=== PATIENT | female | born 1945 | race Caucasian/White ===

== ENCOUNTER → 2023-11-17 12:59 | Outpatient (REF) | payer MEDICARE, OTHER, SELFPAY | LOC: RAD 12:59 | PROVIDERS: ATTENDING PHYSICIAN Physician Assistant | DX: I77.9 Disorder of arteries and arterioles, unspecified (principal); I70.221 Atherosclerosis of native arteries of extremities with rest pain, right leg | CPT/HCPCS: 93922; 93925 ==

== ENCOUNTER 2024-04-04 17:32 | Inpatient (IN) | payer MEDICARE, OTHER, SELFPAY ==
[2024-04-04] VITALS (33 sets, daily range): BP systolic 79–154; BP diastolic 34–122
[2024-04-04 15:16] LABS: Glucose - Point of Care 160 mg/dl (70-99)
--- NOTE | 2024-04-04 15:23 | ED.GENMED ---
History of Present Illness
<Benoit Houser DO, Resident - Last Filed: 04/04/24 18:43>
General
Chief Complaint: Change in Mental Status
Source: ambulance crew
Time Seen by Provider: 04/04/24 15:17
History of Present Illness
History of Present Illness:
Pt is a 79 YO F presenting to the ED with AMS for 2 days per longterm report. She has been more somnolent and confused than baseline, has not eaten anything in 2 days and is febrile. Per EMS report HR has been scattered between 80-130s and BP
was 80s/40s. She has a hx of afib and is currently in afib on registered nurse cardiac.
Past History
<Benoit Houser DO, Resident - Last Filed: 04/04/24 18:43>
Past History
ED Past Medical History: Arrthythmia (Paroxysmal atrial fibrillation; V-fib with torsades), CAD, CHF (Cardiomyopathy), CVA, GERD, HTN, Hypercholesterolemia, IDDM, Hypothyroidism, Psychiatric and Other (Chronic foot wound, osteomyelitis)
ED Past Surgical History: Cardiac (AICD 2016)
Social History
Personal:
Living: longterm
Family History
Family History: Other (Noncontributory)
Review of Systems
<Benoit Houser DO, Resident - Last Filed: 04/04/24 18:43>
Review of Systems
Allergies reviewed?: Yes
Unable to obtain full review of systems at this time due to: dementia
Other source history: longterm and ambulance crew
Constitutional: Reports other (Patient has baseline dementia and is significantly more altered than baseline. Somnolent and unable to respond. )
Respiratory: Reports cough
Phy Exam
<Benoit Houser DO, Resident - Last Filed: 04/04/24 18:43>
Physical Exam
Physical Exam:
.
General Physical Exam
General Skin: feels hot
General Habitus: cachetic, elderly, failure to thrive and frail
General Mental: other (AMS, somnolent)
General Hydration: dry mucous membranes
General Chronic Disability: diapers and non ambulatory
Cardiovascular Exam
Cardiovascular Exam: no edema, no gallop, no JVD, no murmur, normal peripheral pulses, pacemaker and tachycardia
Pulmonary Exam
Pulmonary Exam: no respiratory distress, chest non tender and no stridor
Oxygen Status: room air
Cough: coarse cough
Breath Sounds: Crackles: generalized
Neurological Exam
Neurological Exam: non verbal and other (altered mental status, somnolent, unable to respond to questions )
Musculoskeletal Exam
Musculoskeletal Exam: no edema
Course
<Benoit Houser DO, Resident - Last Filed: 04/04/24 18:43>
Orders/Labs/Results
Orders:
Orders
04/04/24 Dinner
NPO
Allow oral meds: No
Allow clear liquids: No
NPO
Allow oral meds: No
Allow clear liquids: No
04/04/24 15:12
Electrocardiogram (*1) Urgent
Reason for Study: Other
Other Reason for Exam: Possible Sepsis
Cardiac Monitoring- Treatment ONCE
EKG- Treatment ONCE
IV Insert/Care/Rem.- Treatment PRN
Straight cath- Treatment ONCE
Portable Chest Xray [CR Chest Portable - 1 View] Urgent
Comment:
Reason For Exam: cough
Reason Study Needs to be Portable: Unable to Transport
If Reason is Other, explain: unstable
O2 Therapy [RESP] Urgent
Titrate/Wean O2 to maintain O2 sat greater than (%): 93
Special Instructions: TO MAINTAIN CONTINUOUS O2 SATS > OR = 93%
Pulse Ox/cont/shift [RESP] Urgent
Quantity: 1
Special Instructions: CONTINUOUS
04/04/24 15:17
Cardiac Monitoring- Treatment ONCE
IV Insert/Care/Rem.- Treatment PRN
Straight cath- Treatment ONCE
0.9% Sodium Chloride 1000 ml [Nss] 1,500 ml IV BOLUS
Acetaminophen [Tylenol/Feverall] 650 mg RECTAL NOW STA
04/04/24 15:20
Cefepime HCl [Maxipime] 2,000 mg IV NOW STA
04/04/24 15:27
Complete Blood Count/With Diff Urgent
Comprehensive Metabolic Panel Urgent
Lactate Level [Lactic Acid] Urgent
Urinalysis Reflex To Culture Urgent
Date Specimen was Collected: 04/04/24
Time Specimen was Collected: 15:12
Urine Microscopic Reflex Cult Urgent
Blood Culture Urgent
KEVIN Source: Blood/Venous
Specimen Description:
Urine Culture Urgent
KEVIN Source: U
Specimen Description:
Date Specimen was Collected: 04/04/24
Time Specimen was Collected: 15:12
04/04/24 15:36
Sterile Water [Sterile Water For Injection] 20 ml .ROUTE .STK-MED
04/04/24 15:37
Speech Screening from Lilibeth Routine
04/04/24 16:49
Admit/Transfer Patient As Directed
Co-Sign Provider:
Level of Care: Inpatient admission
Assign to:: ICU
Physician / Group: tesha
Diagnosis: sepsis uti
Reason for Hospitalization: sepsis uti
Expected length of stay greater than two midnights?: Yes
ELOS- Estimated Length of Stay in days: 2
I certify the patient meets the requirements for IP care: Yes
Code Status As Directed
Resuscitation Status: Do not resuscitate
Reached after discussion with pt or family/Healthcare POA: Yes
DNR Bracelet Application ONCE
04/04/24 16:59
Abdomen/Pelvis wo Contrast CT [CT Abd/pelvis Wo Iv Cont] Urgent
Comment:
Reason For Exam: obstructive renal stone
04/04/24 17:00
NORepinephrine 4 MG/250 ML [Levophed] 4 mg in 250 ml IV PER PROTOCOL
Initial dose in mcg/min, then titrate:: 2
Titrate to keep:: SBP > 90 mmHg
Titrate by mcg/min:: 1-2 mcg/min
Frequency of titrations (minutes):: 5
Maximum dose in ICU in mcg/min:: 30
Maximum dose in IMU in mcg/min:: 8
Maximum dose in IVU in mcg/min:: 4
Begin to taper infusion when:: Remained at goal for 4hrs
Taper by mcg/min:: 1-2 mcg/min
Frequency of taper (minutes) if patient maintains goal:: 30
Taper to off?: Yes
If infusion off & no longer maintaining goal:: Contact Provider
04/04/24 18:42
Lactate Level [Lactic Acid] Q6H
0.9% Sodium Chloride 1000 ml [Nss] 1,000 ml IV 80 mls/hr
Artificial Tears (Pf) [Refresh Eye Drops (Pf)] 1 drops OPHTH QIDPRN PRN
Cefepime HCl [Maxipime] 1,000 mg IV Q12H
Dextrose 50%-Water [Dextrose 50% Syringe] 12.5 grams IV [id number] PRN
Glucagon [GlucaGen] 1 mg IM PRN PRN
04/04/24 18:42
Activity As Directed
Activity Level: As Tolerated
Bedside Glucose Monitoring As Directed
Frequency: AC&HS
Additional Instructions:: Change to q6h if pt on TPN, tube feeding or not eating
Vital Signs As Directed
Frequency: Per unit guidelines
DX Deep Vein Thrombosis Video Routine
04/04/24 20:00
Heparin 5,000 units SC Q12
04/05/24 00:42
Lactate Level [Lactic Acid] Q6H
04/05/24 06:00
Complete Blood Count/With Diff IN AM
Comprehensive Metabolic Panel IN AM
Glycohemoglobin (HgbA1c) IN AM
04/05/24 07:30
Insulin Aspart Corrective Low [Novolog Flexpen-Low Resistance] See Protocol SC AC
Abnormal Lab Results
04/04/24 04/04/24
15:14 15:27
WBC 21.7 H 10^3/uL
(4.8-10.8)
MCV 78.5 L fL
(81.0-99.0)
MCH 23.6 L pg
(27.0-31.0)
MCHC 30.1 L g/dL
(33.0-37.0)
RDW 23.2 H %
(11.5-14.5)
Plt Count 412 H 10^3/uL
(130-400)
Abs Immat Gran (auto) 0.2 H 10^3/uL
(0-0.05)
Absolute Neuts (auto) 17.5 H 10^3/uL
(1.4-6.5)
Absolute Monos (auto) 1.5 H 10^3/uL
(0.1-0.6)
Immature Gran % 0.9 H %
(0-0.5)
Neutrophils % 80.6 H %
(42.2-75.2)
Lymphocytes % 11.5 L %
(20.5-51.1)
Sodium 157 H mmol/L
(135-145)
Chloride 120 H mmol/L
(98-107)
BUN 66 H mg/dl
(7-17)
Creatinine 1.3 H mg/dL
(0.6-1.0)
Glucose 147 H mg/dl
(70-99)
Lactic Acid 5.1 H* mmol/L
(0.7-2.0)
Calcium 10.5 H mg/dl
(8.4-10.2)
Albumin 3.3 L g/dl
(3.5-5.0)
Urine Ketones 1+ A
(Negative)
Ur Occult Blood Reflex 1+ A
(Negative)
Urine Bilirubin 1+ A
(Negative)
Leukocyte Esterase Rfl 1+ A
(Negative)
Urine RBC 11-15 A /HPF
(0-2)
Urine WBC (Reflex) 11-15 A /HPF
(0-5)
Urine Bacteria (Reflex) Many A
(Negative)
POC Glucose 160 H mg/dl
(70-99)
04/04/24 15:27
04/04/24 15:27
Vital Signs
Initial and Last Documented VS:
Initial Vital Signs
BP
98/69
04/04/24 15:32
Last Documented Vital Signs
Temp Pulse Resp BP Pulse Ox
102.4 F H 136 29 94/63 92
04/04/24 15:33 04/04/24 18:10 04/04/24 18:10 04/04/24 18:00 04/04/24 18:10
<Edwin Felton, DO - Last Filed: 04/04/24 16:22>
Orders/Labs/Results
Orders:
Orders
04/04/24 Dinner
NPO
Allow oral meds: No
Allow clear liquids: No
NPO
Allow oral meds: No
Allow clear liquids: No
04/04/24 15:12
Electrocardiogram (*1) Urgent
Reason for Study: Other
Other Reason for Exam: Possible Sepsis
Cardiac Monitoring- Treatment ONCE
EKG- Treatment ONCE
IV Insert/Care/Rem.- Treatment PRN
Straight cath- Treatment ONCE
Portable Chest Xray [CR Chest Portable - 1 View] Urgent
Comment:
Reason For Exam: cough
Reason Study Needs to be Portable: Unable to Transport
If Reason is Other, explain: unstable
O2 Therapy [RESP] Urgent
Titrate/Wean O2 to maintain O2 sat greater than (%): 93
Special Instructions: TO MAINTAIN CONTINUOUS O2 SATS > OR = 93%
Pulse Ox/cont/shift [RESP] Urgent
Quantity: 1
Special Instructions: CONTINUOUS
04/04/24 15:17
Cardiac Monitoring- Treatment ONCE
IV Insert/Care/Rem.- Treatment PRN
Straight cath- Treatment ONCE
0.9% Sodium Chloride 1000 ml [Nss] 1,500 ml IV BOLUS
Acetaminophen [Tylenol/Feverall] 650 mg RECTAL NOW STA
04/04/24 15:20
Cefepime HCl [Maxipime] 2,000 mg IV NOW STA
04/04/24 15:27
Complete Blood Count/With Diff Urgent
Comprehensive Metabolic Panel Urgent
Lactate Level [Lactic Acid] Urgent
Urinalysis Reflex To Culture Urgent
Date Specimen was Collected: 04/04/24
Time Specimen was Collected: 15:12
Urine Microscopic Reflex Cult Urgent
Blood Culture Urgent
KEVIN Source: Blood/Venous
Specimen Description:
Urine Culture Urgent
KEVIN Source: U
Specimen Description:
Date Specimen was Collected: 04/04/24
Time Specimen was Collected: 15:12
04/04/24 15:36
Sterile Water [Sterile Water For Injection] 20 ml .ROUTE .STK-MED
04/04/24 15:37
Speech Screening from Lilibeth Routine
04/04/24 16:49
Admit/Transfer Patient As Directed
Co-Sign Provider:
Level of Care: Inpatient admission
Assign to:: ICU
Physician / Group: tesha
Diagnosis: sepsis uti
Reason for Hospitalization: sepsis uti
Expected length of stay greater than two midnights?: Yes
ELOS- Estimated Length of Stay in days: 2
I certify the patient meets the requirements for IP care: Yes
Code Status As Directed
Resuscitation Status: Do not resuscitate
Reached after discussion with pt or family/Healthcare POA: Yes
DNR Bracelet Application ONCE
04/04/24 16:59
Abdomen/Pelvis wo Contrast CT [CT Abd/pelvis Wo Iv Cont] Urgent
Comment:
Reason For Exam: obstructive renal stone
04/04/24 17:00
NORepinephrine 4 MG/250 ML [Levophed] 4 mg in 250 ml IV PER PROTOCOL
Initial dose in mcg/min, then titrate:: 2
Titrate to keep:: SBP > 90 mmHg
Titrate by mcg/min:: 1-2 mcg/min
Frequency of titrations (minutes):: 5
Maximum dose in ICU in mcg/min:: 30
Maximum dose in IMU in mcg/min:: 8
Maximum dose in IVU in mcg/min:: 4
Begin to taper infusion when:: Remained at goal for 4hrs
Taper by mcg/min:: 1-2 mcg/min
Frequency of taper (minutes) if patient maintains goal:: 30
Taper to off?: Yes
If infusion off & no longer maintaining goal:: Contact Provider
04/04/24 18:42
Lactate Level [Lactic Acid] Q6H
0.9% Sodium Chloride 1000 ml [Nss] 1,000 ml IV 80 mls/hr
Artificial Tears (Pf) [Refresh Eye Drops (Pf)] 1 drops OPHTH QIDPRN PRN
Cefepime HCl [Maxipime] 1,000 mg IV Q12H
Dextrose 50%-Water [Dextrose 50% Syringe] 12.5 grams IV [id number] PRN
Glucagon [GlucaGen] 1 mg IM PRN PRN
04/04/24 18:42
Activity As Directed
Activity Level: As Tolerated
Bedside Glucose Monitoring As Directed
Frequency: AC&HS
Additional Instructions:: Change to q6h if pt on TPN, tube feeding or not eating
Vital Signs As Directed
Frequency: Per unit guidelines
DX Deep Vein Thrombosis Video Routine
04/04/24 20:00
Heparin 5,000 units SC Q12
04/05/24 00:42
Lactate Level [Lactic Acid] Q6H
04/05/24 06:00
Complete Blood Count/With Diff IN AM
Comprehensive Metabolic Panel IN AM
Glycohemoglobin (HgbA1c) IN AM
04/05/24 07:30
Insulin Aspart Corrective Low [Novolog Flexpen-Low Resistance] See Protocol SC AC
Abnormal Lab Results
04/04/24 04/04/24
15:14 15:27
WBC 21.7 H 10^3/uL
(4.8-10.8)
MCV 78.5 L fL
(81.0-99.0)
MCH 23.6 L pg
(27.0-31.0)
MCHC 30.1 L g/dL
(33.0-37.0)
RDW 23.2 H %
(11.5-14.5)
Plt Count 412 H 10^3/uL
(130-400)
Abs Immat Gran (auto) 0.2 H 10^3/uL
(0-0.05)
Absolute Neuts (auto) 17.5 H 10^3/uL
(1.4-6.5)
Absolute Monos (auto) 1.5 H 10^3/uL
(0.1-0.6)
Immature Gran % 0.9 H %
(0-0.5)
Neutrophils % 80.6 H %
(42.2-75.2)
Lymphocytes % 11.5 L %
(20.5-51.1)
Sodium 157 H mmol/L
(135-145)
Chloride 120 H mmol/L
(98-107)
BUN 66 H mg/dl
(7-17)
Creatinine 1.3 H mg/dL
(0.6-1.0)
Glucose 147 H mg/dl
(70-99)
Lactic Acid 5.1 H* mmol/L
(0.7-2.0)
Calcium 10.5 H mg/dl
(8.4-10.2)
Albumin 3.3 L g/dl
(3.5-5.0)
Urine Ketones 1+ A
(Negative)
Ur Occult Blood Reflex 1+ A
(Negative)
Urine Bilirubin 1+ A
(Negative)
Leukocyte Esterase Rfl 1+ A
(Negative)
Urine RBC 11-15 A /HPF
(0-2)
Urine WBC (Reflex) 11-15 A /HPF
(0-5)
Urine Bacteria (Reflex) Many A
(Negative)
POC Glucose 160 H mg/dl
(70-99)
04/04/24 15:27
04/04/24 15:27
Vital Signs
Initial and Last Documented VS:
Initial Vital Signs
BP
98/69
04/04/24 15:32
Last Documented Vital Signs
Temp Pulse Resp BP Pulse Ox
102.4 F H 136 29 94/63 92
04/04/24 15:33 04/04/24 18:10 04/04/24 18:10 04/04/24 18:00 04/04/24 18:10
<Benoit Houser DO, Resident - Last Filed: 04/04/24 18:43>
MDM/Problems Addressed
Differential Diagnosis Includes:
Afib, sepsis, altered mental status
MDM/Problems Addressed:
Pt is a 79 YO F presenting to the ED from longterm with AMS. She is nonresponsive and somnolent. Rectal temperature 102.4. EKG shows Afib with RVR. CXR and CT AP ordered. Lab work and blood cultures ordered. Normal saline ordered for hydration,
Tylenol ordered for heart rate and fever control, and cefepime ordered for broad spectrum coverage. Patient to be admitted to hospital
Chronic conditions affecting care:
Afib
Acute Exacerbation and/or Progression of Chronic Illness:
Afib
<Benoit Houser DO, Resident - Last Filed: 04/04/24 18:43>
*EKG
Interpreted by ED Provider?: Yes
EKG Intrepretation Date: 04/04/24
Interpretation: abnormal
Comparison EKG: changes noted
Rate: tachycardiac
Rhythm: a-fib and other (rapid ventricular response )
[place]: left axis deviation
*Hot Box Operator Interpretation
Rate: tachycardiac
Interpretation: abnormal
Heart Rate: 159
Rhythm: a-fib
<Edwin Felton DO - Last Filed: 04/04/24 16:22>
*Radiology
Radiology exam reviewed: preliminary read by ED provider
*Pulse Oximetry
Patient hypoxic: no
*Critical Care Note
Total Time (30-74mins, 75-104mins- exclusive of procedures): 31
<Benoit Houser DO, Resident - Last Filed: 04/04/24 18:43>
Update Note
Update Note:
Patient' at bedside. Confirms DNR/DNI status.
ED Attending Note
<Benoit Houser DO Resident - Last Filed: 04/04/24 18:43>
-
Portions of this chart may have been created with voice recognition software.� Occasional wrong word or��sound alike� substitutions may have occurred due to the inherent limitations of voice recognition software.
<Edwin Felton DO - Last Filed: 04/04/24 16:22>
ED Attending Note
Patient seen and examined by attending physician: Yes
I performed a history and physical exam of patient and discussed management with resident, I reviewed resident's note and agree with documented findings and plan of care.: Yes
ED Attending Note:
seen with housestaff-elderly female, fever, confusion, AFRVR, suspect aspiraton vs other infection, plan-labs, tylenol, antibiotics, ID notes reviewed-has tolerated cefepime previously, prognosis appears guarded, DNR by EMS report
Discharge Plan
Departure
Patient Disposition: Admit
Date of Disposition: 04/04/24
Time of Disposition: 18:38
Admit to: Telemetry
Presentation/result/management discussed w/ accepting MD/DO: Hospitalist
Condition: Fair
Discharge Problem:
Altered mental status
Interventions
Interventions:
*Risk Screen - Suicide Last Done: 04/04/24 15:33
*General Assessment Last Done: 04/04/24 15:33
*Neglect/Abuse Screening Last Done: 04/04/24 15:33
ED- Fall Risk Assessment Last Done: 04/04/24 18:38
*ED COVID-19 Vaccine History Last Done: 04/04/24 16:21
*Nursing Disposition Last Done: 04/04/24 18:38
ED- Pulmonary Assessment Last Done: 04/04/24 18:38
ED-Psychological Assessment Last Done: 04/04/24 18:38
ED- Neurological Assessment Last Done: 04/04/24 15:33
ED- Cardiac Assessment Last Done: 04/04/24 18:38
ED Swallowing Screen Last Done: 04/04/24 15:33
Discharge Date and Time
Discharge Date/Time: 04/04/24 18:39
[2024-04-04] MEDS: TYLENOL/FEVERALL 650 MG RECTAL (15:41)
[2024-04-04] MEDS: NSS 1500 IV (15:41)
[2024-04-04] MEDS: MAXIPIME 2000 MG IV (15:41)
--- NOTE | 2024-04-04 15:57 | PTOTSP ---
ST Screening
Chart reviewed. Pt here for altered mental status and poor PO intake. Pt arrived with meds crushed in her mouth from facility. Pt failed RN swallow screening. Would recommend formal M[employer]ER [employer] SC[employer]ER evaluation when pt is medically able to safely participate.
Thank you.
[2024-04-04 16:01] LABS: % Basophils 0.1 % (0-2); % Immature Granulocytes 0.9 % (0-0.5); % Lymphocytes 11.5 % (20.5-51.1); % Monocytes 6.9 % (1.7-9.3); % Neutrophils 80.6 % (42.2-75.2); Absolute Immature Granulocytes 0.2 10^3/uL (0-0.05); Absolute Lymphocytes 2.5 10^3/uL (1.2-3.4); Absolute Monocytes 1.5 10^3/uL (0.1-0.6); Absolute Neutrophils 17.5 10^3/uL (1.4-6.5); Hematocrit 40.5 % (37.0-47.0); Hemoglobin 12.2 g/dL (12.0-16.0); Mean Corp Hgb Conc. 30.1 g/dL (33.0-37.0); Mean Corpuscular Hgb 23.6 pg (27.0-31.0); Mean Corpuscular Volume 78.5 fL (81.0-99.0); Nucleated Red Blood Cells % 0.1 %; Platelet Count 412 10^3/uL (130-400); Red Blood Cell Count 5.16 10^6/uL (4.20-5.40); Red Cell Dist. Width 23.2 % (11.5-14.5); White Blood Cell Count 21.7 10^3/uL (4.8-10.8)
[2024-04-04 16:04] LABS: Urine Albumin Trace (Neg - Trace); Urine Bilirubin 1+ (Negative); Urine Character Clear (Clear); Urine Color Yellow; Urine Glucose Negative (Negative); Urine Ketone 1+ (Negative); Urine Leukocyte 1+ (Negative); Urine Nitrite Negative (Negative); Urine Occult Blood 1+ (Negative); Urine Specific Gravity 1.025 (<1.030); Urine Urobilinogen 1+ (Neg - 1+)
[2024-04-04 16:14] LABS: Lactic Acid 5.1 mmol/L (0.7-2.0)
[2024-04-04 16:20] LABS: Urine Mucus Few
[2024-04-04 16:21] LABS: Urine Bacteria Many (Negative)
[2024-04-04 16:22] LABS: AST (SGOT) 26 U/L (14-36); Albumin 3.3 g/dl (3.5-5.0); Alkaline Phosphatase 68 U/L (38-126); Blood Urea Nitrogen 66 mg/dl (7-17); Calcium 10.5 mg/dl (8.4-10.2); Carbon Dioxide 22 mmol/L (22-30); Chloride 120 mmol/L (98-107); Glucose 147 mg/dl (70-99); Potassium 3.5 mmol/L (3.5-5.1); Sodium 157 mmol/L (135-145); Total Bilirubin 0.7 mg/dl (0.2-1.3); Total Protein 6.3 g/dl (6.3-8.2); eGFR 42.35
[2024-04-04 16:27] LABS: Anisocytosis 1+; Macrocytosis Slight; Normal RBC Morphology No
[2024-04-04 16:28] LABS: Stomatocytes Slight
[2024-04-04 16:29] LABS: Microcytosis 1+
--- NOTE | 2024-04-04 16:56 | HPS.HSE ---
Addendum entered and electronically signed by Karson Kenyon MD 04/04/24 17:12:
Ct abdomen/pelvis pending.
Original Note:
Family Physician
-
Family Physician: Tom Mehta
Chief Complaint
-
altered mental status
History of Present Illness
79-year-old female with past medical history of paroxysmal atrial fibrillation, V-fib/torsades status post ICD, CAD, CHF, CVA, hypertension, GERD, erosive esophagitis, hypercholesteremia, diabetes, hypothyroidism, chronic foot wound, presenting with
altered mental status for 2 days as per care home report. She has been more somnolent and confused than baseline and not eating anything in 2 days and also having a fever. Per EMS heart rate between 80s to 130s and blood pressure 80s over 40s.
She has been having some cough.
Medical History
Past Medical History
Past Medical History: Reports Other (paroxysmal atrial fibrillation, V-fib/torsades status post ICD, CAD, CHF, CVA, hypertension, GERD, erosive esophagitis, hypercholesteremia, diabetes, hypothyroidism, chronic foot wound)
Past Surgical History: Reports Other ( Cardiac (AICD 2016))
Social History
Tobacco: Non-smoker
Alcohol: None
Drug: None
Family History
Family History: Not pertinent
Allergies / Home Medications
Allergies reflects when Allergies were last updated in [employer].
Home Medications with original date entered in [employer]
Allergy/Medication List:
Allergies
Allergy/AdvReac Type Severity Reaction Status Date / Time
Penicillins AdvReac Nausea Verified 02/22/23 16:42
Home Medications
levothyroxine 137 mcg tablet 137 mcg PO DAILY Thyroid 03/31/16
acetaminophen 500 mg tablet 1,000 mg PO Q6HPRN PRN mild to moderate pain 02/20/23
atorvastatin 40 mg tablet 40 mg PO DAILY High Cholesterol 02/20/23
bisacodyl 10 mg rectal suppository 10 mg MS DAILYPRN PRN constipation if no results from MOM 02/20/23
diltiazem HCl 180 mg capsule,extended release 24 hr (Cardizem CD) 180 mg PO DAILY Blood Pressure 02/20/23
divalproex 125 mg capsule,delayed release sprinkle 250 mg PO Q12 seizures, mood stabilizer 02/20/23
docusate sodium 100 mg tablet 100 mg PO BID Constipation 02/20/23
fenofibrate 160 mg tablet 160 mg PO DAILY High Cholesterol 02/20/23
insulin glargine 100 unit/mL subcutaneous solution (Lantus U-100 Insulin) 10 unit SC HS Diabetes 02/20/23
insulin lispro 100 unit/mL subcutaneous solution 1 sliding scale dose SC ACHS Diabetes 02/20/23
magnesium oxide 400 mg PO DAILY Supplement 02/20/23
metformin 500 mg tablet 1,000 mg PO BID Diabetes 02/20/23
mirtazapine 15 mg tablet 15 mg PO HS Depression 02/20/23
multivitamin 1 tab PO DAILY Supplement 02/20/23
aspirin 81 mg chewable tablet 81 mg PO DAILY Blood Clot Prevention/Tx 02/22/23
potassium phosphate m-/d-basic 1 tab PO BID Supplement 02/22/23
pantoprazole 40 mg tablet,delayed release 40 mg PO BID #0 tabs 02/24/23
melatonin 5 mg tablet 5 mg PO HS 09/21/23
olanzapine 15 mg tablet (Zyprexa) 15 mg PO HS 09/21/23
sucralfate 1 gram tablet 1 g PO ACHS 09/21/23
cholecalciferol (vitamin D3) 25 mcg (1,000 unit) capsule 25 mcg PO DAILY 09/30/23
carvedilol 6.25 mg tablet 6.25 mg PO BID 04/04/24
ferrous sulfate 325 mg (65 mg iron) tablet 325 mg PO DAILY 04/04/24
Review of Systems
-
History Source: Patient
A 12 point ROS was completed and negative except as noted: No
Physical Exam
Vital Signs
Vital Signs
Temp Pulse Resp BP Pulse Ox
102.4 F H 132 28 88/55 96
04/04/24 15:33 04/04/24 16:45 04/04/24 16:45 04/04/24 16:45 04/04/24 16:25
Physical Exam
General: Well Developed, Well Nourished and No Apparent Distress
HEENT: NormoCephalic, Moist mucous membranes, Atraumatic and Other (left eyelid crusting )
Respiratory: Clear
Cardiac: S1/S2 and Regular Rhythm; No Murmur or Rub
GI: Soft, Non Tender, Non Distended and Normal Bowel Sounds; No Organomegaly
Rectal: Deferred by Provider
Musculoskeletal: No Clubbing, No Cyanosis and No Edema
Skin: No Rash
Neuro: Nonfocal/grossly intact
Laboratory Results
-
04/04/24 15:27
04/04/24 15:27
Laboratory Results
Lactic Acid 5.1 mmol/L (0.7-2.0) H* 04/04/24 15:27
Total Bilirubin 0.7 mg/dl (0.2-1.3) 04/04/24 15:27
AST 26 U/L (14-36) 04/04/24 15:27
Alkaline Phosphatase 68 U/L (38-126) 04/04/24 15:27
Data Reviewed
-
Lab Data: Labs Reviewed by me
Old Records: Reviewed
Impression/Plan
-
IMPRESSION:
PLAN:
# Sepsis/septic shock (fever, leukocytosis, tachycardia, tachypnea, hypotension) presumably secondary to UTI
-Urinalysis shows 11-15 WBC, +1 leukocyte esterase
-Chest x-ray does not appear to show any obvious infiltrates, report pending
-Patient minimally responsive but spontaneously breathing and not hypoxic
-Check urine, blood culture
-IV fluids, Levophed if needed
-Cefepime
-N.p.o.,
# Left eye conjunctivitis
-Some crusting visible
-Eyedrops
# Hypernatremia secondary to hypovolemia
-Normal saline for now since hypotensive
# Acute kidney injury prerenal
-Monitor with IV fluids
#Paroxysmal atrial fibrillation with RVR secondary to sepsis/hypovolemia
-Currently with elevated heart rates, monitor with further IV fluid
-Resume diltiazem when able
History of V-fib/torsades status post ICD
Coronary artery disease
-Resume aspirin, statin when able
History of heart failure
History of CVA
Essential hypertension
-Resume Coreg when able
GERD
History of upper GI bleeding secondary to erosive esophagitis
-Resume Protonix, sucralfate when able
Hypercholesterolemia
-Resume fenofibrate when able
Type 2 diabetes
-Hold Lantus
-Hold metformin
-Insulin sliding scale
Hypothyroidism
-Resume levothyroxine when able
Advanced dementia with behavioral disturbances
-Resume Depakote, mirtazapine, olanzapine when able
DNR/DNI
DVT prophylaxis�heparin
N.p.o.
[2024-04-04] MEDS: NSS 1000 IV (18:48)
[2024-04-04 18:52] LABS: ALT (SGPT) < 30 U/L (0-35)
--- NOTE | 2024-04-04 18:56 | PTCARENOTE ---
arrived from ED via stretcher 1829, settled in bed, complete CHG bath, see skin documentation for wounds. R temp by probe, HR 130-140 range, fluids infusing as new order 80/hr. unable to obtain 2nd IV site, multiple attempts. moans and groans, no
interaction. oral care given. foams applied
[2024-04-04 19:21] LABS: INR 3.46; PT 35.3 Sec (11.4-14.6)
[2024-04-04 19:22] LABS: APTT 40.3 Sec (23.4-35.0)
[2024-04-04 19:23] LABS: Lactic Acid 1.4 mmol/L (0.7-2.0)
--- NOTE | 2024-04-04 20:00 | PTCARENOTE ---
Pt lethargic, moans when moved but otherwise does not interact or follow commands. Uncontrolled Afib on monitor 120-130s, DATA ABSTRACTOR notified, no further order. BP soft, maintaining a MAP >60, Kobi available if needed. IVF infusing 80ml. Wounds noted on
admission, wound care consulted. Q2hour turns with pillows.
[2024-04-04] MEDS: HEPARIN 5000 UNITS SC (20:06)
[2024-04-04] MEDS: PROTONIX IV 40 MG IV (21:19)
[2024-04-04] MEDS: NSS (PRESERVATIVE FREE) 10 ML IV (21:20)
--- NOTE | 2024-04-04 23:40 | W.PN.SEPSIS ---
Sepsis
Vital Signs
Temp Pulse Resp BP Pulse Ox
99.3 F 135 33 84/53 98
04/04/24 22:38 04/04/24 20:50 04/04/24 20:50 04/04/24 20:45 04/04/24 20:56
Physical Exam
Physical Exam:
A focused exam was performed after fluid resuscitation.
Capillary Refill
Lower Extremity:
[place] Time: Less than 3 sec
Pulse Evaluation
Dorsalis Pedis:
Pulse Evaluation: Present
[2024-04-05] VITALS (68 sets, daily range): BP systolic 79–129; BP diastolic 46–93; BMI 16.8
[2024-04-05 00:25] LABS: Glucose - Point of Care 189 mg/dl (70-99)
[2024-04-05] MEDS: NOVOLOG FLEXPEN-LOW RESISTANCE 1 UNITS SC (00:37)
[2024-04-05] MEDS: NEO-SYNEPHRINE 250 IV (01:16)
--- NOTE | 2024-04-05 01:29 | PTCARENOTE ---
Pt SBP 70s, map <65, Kobi started. Pt remains lethargic, moans to painful stimuli or movement. Afib on monitor.
[2024-04-05] MEDS: MAXIPIME 1000 MG IV ×2 (03:50→16:55)
[2024-04-05] MEDS: STERILE WATER FOR INJECTION 10 ML IV ×2 (03:50→16:55)
[2024-04-05 04:13] LABS: % Basophils 0.2 % (0-2); % Eosinophils 0.1 % (0-6); % Lymphocytes 14.3 % (20.5-51.1); % Monocytes 5.1 % (1.7-9.3); % Neutrophils 79.3 % (42.2-75.2); Absolute Immature Granulocytes 0.2 10^3/uL (0-0.05); Absolute Lymphocytes 2.8 10^3/uL (1.2-3.4); Absolute Neutrophils 15.5 10^3/uL (1.4-6.5); Hematocrit 36.3 % (37.0-47.0); Hemoglobin 10.8 g/dL (12.0-16.0); Mean Corp Hgb Conc. 29.8 g/dL (33.0-37.0); Mean Corpuscular Hgb 23.6 pg (27.0-31.0); Mean Corpuscular Volume 79.4 fL (81.0-99.0); Mean Platelet Volume 12.5 fL (7.4-10.4); Nucleated Red Blood Cells % 0 %; Platelet Count 369 10^3/uL (130-400); Red Blood Cell Count 4.57 10^6/uL (4.20-5.40); Red Cell Dist. Width 22.8 % (11.5-14.5); White Blood Cell Count 19.6 10^3/uL (4.8-10.8)
[2024-04-05 04:37] LABS: ALT (SGPT) 15 U/L (0-35); AST (SGOT) 20 U/L (14-36); Albumin 2.7 g/dl (3.5-5.0); Alkaline Phosphatase 65 U/L (38-126); Blood Urea Nitrogen 56 mg/dl (7-17); Calcium 9.3 mg/dl (8.4-10.2); Carbon Dioxide 24 mmol/L (22-30); Chloride 127 mmol/L (98-107); Estimated Creatinine Clearance 32 ml/min; Glucose 164 mg/dl (70-99); Potassium 3.5 mmol/L (3.5-5.1); Sodium 158 mmol/L (135-145); Total Bilirubin 0.6 mg/dl (0.2-1.3); Total Protein 5.5 g/dl (6.3-8.2); eGFR > 60.00
[2024-04-05] MEDS: 0.45%NACL 1000 IV (05:07)
--- NOTE | 2024-04-05 05:44 | PTCARENOTE ---
Sodium remains elevated 158, IVF changed to 0.45% NS 8ml/hr
[2024-04-05] MEDS: NOVOLOG FLEXPEN-LOW RESISTANCE SC (05:57)
[2024-04-05 06:06] LABS: Glucose - Point of Care 147 mg/dl (70-99)
[2024-04-05 06:11] LABS: TSH 1.32 uIU/ml (0.47-4.68)
--- NOTE | 2024-04-05 07:16 | CON.INTV ---
Consultation
Consultation Request
Date/Time Consultation Requested: 04/05/24
Date/Time Consultation Performed: 04/05/24
Performing Provider: Gino
Reason for Consultation: Critical Care
Medical History
-
History of Present Illness:
Patient is a 79-year-old female with past medical history of paroxysmal atrial fibrillation, V-fib/torsades status post ICD, CAD, CHF, CVA, advanced dementia/parkinsons, chronic foot wound, presenting with altered mental status for 2 days as per
group home report. She has been more somnolent and confused than baseline with decreased PO intake and fevers. Of note, she had undigested pills in her mouth. In ER, she was hypotensive and tachycardic, with signs of urosepsis. She is admitted
to ICU for possible pressor requirements. She does not provide additional history.
Past Medical History
Past Medical History: Other (see list below)
Social History
Tobacco: Non-smoker
Alcohol: None
Drug: None
Family History
Family History: Reviewed & Not Pertinent
Allergies / Home Medications
Allergies
Allergy/AdvReac Type Severity Reaction Status Date / Time
Penicillins AdvReac Nausea Verified 02/22/23 16:42
Home Medications
�Medication �Instructions �Recorded �Confirmed �Last Taken �Type
levothyroxine 137 mcg tablet 137 mcg PO DAILY Thyroid 03/31/16 04/04/24 09/29/23 06:00 History
acetaminophen 500 mg tablet 1,000 mg PO Q6HPRN PRN mild to 02/20/23 04/04/24 Unknown History
moderate pain
atorvastatin 40 mg tablet 40 mg PO DAILY High Cholesterol 02/20/23 04/04/24 09/29/23 17:00 History
bisacodyl 10 mg rectal suppository 10 mg AK DAILYPRN PRN constipation 02/20/23 04/04/24 Unknown History
if no results from MOM
diltiazem HCl 180 mg 180 mg PO DAILY Blood Pressure 02/20/23 04/04/24 09/29/23 12:00 History
capsule,extended release 24 hr
(Cardizem CD)
divalproex 125 mg capsule,delayed 250 mg PO Q12 mood stabilizer 02/20/23 04/04/24 09/29/23 20:00 History
release sprinkle
docusate sodium 100 mg tablet 100 mg PO BID Constipation 02/20/23 04/04/24 09/29/23 20:00 History
fenofibrate 160 mg tablet 160 mg PO DAILY High Cholesterol 02/20/23 04/04/24 09/29/23 17:00 History
insulin glargine 100 unit/mL 10 unit SC HS Diabetes 02/20/23 04/04/24 09/29/23 20:00 History
subcutaneous solution (Lantus
U-100 Insulin)
insulin lispro 100 unit/mL 1 sliding scale dose SC ACHS 02/20/23 04/04/24 09/29/23 20:00 History
subcutaneous solution Diabetes
magnesium oxide 400 mg PO DAILY Supplement 02/20/23 04/04/24 09/29/23 08:00 History
metformin 500 mg tablet 1,000 mg PO BID Diabetes 02/20/23 04/04/24 Unknown History
mirtazapine 15 mg tablet 15 mg PO HS Depression 02/20/23 04/04/24 Unknown History
multivitamin 1 tab PO DAILY Supplement 02/20/23 04/04/24 09/29/23 History
aspirin 81 mg chewable tablet 81 mg PO DAILY Blood Clot 02/22/23 04/04/24 09/29/23 08:00 History
Prevention/Tx
potassium phosphate m-/d-basic 1 tab PO BID Supplement 02/22/23 04/04/24 Unknown History
pantoprazole 40 mg tablet,delayed 40 mg PO BID #0 tabs 02/24/23 04/04/24 09/29/23 16:00 Rx
release
melatonin 5 mg tablet 5 mg PO HS 09/21/23 04/04/24 09/29/23 20:00 History
olanzapine 15 mg tablet (Zyprexa) 15 mg PO HS 09/21/23 04/04/24 09/29/23 20:00 History
sucralfate 1 gram tablet 1 g PO ACHS 09/21/23 04/04/24 09/29/23 20:00 History
cholecalciferol (vitamin D3) 25 25 mcg PO DAILY 09/30/23 04/04/24 09/29/23 08:00 History
mcg (1,000 unit) capsule
carvedilol 6.25 mg tablet 6.25 mg PO BID 04/04/24 04/04/24 Unknown History
ferrous sulfate 325 mg (65 mg 325 mg PO DAILY 04/04/24 04/04/24 Unknown History
iron) tablet
Review of Systems
-
Unable to Obtain full review of systems at this time due to: Dementia
Vitals / Labs / Diagnostic Testing
Vital Signs
Temp Pulse Resp BP Pulse Ox
98.3 F 128 24 124/93 97
04/05/24 04:07 04/05/24 06:35 04/05/24 06:35 04/05/24 06:30 04/05/24 06:35
Lab Data
04/05/24 03:48
04/05/24 03:48
Laboratory Results
04/04/24
19:05
PT 35.3 H
INR 3.46
APTT 40.3 H
Diagnostic Testing:
Physical Exam
-
HEENT: Normocephalic, Anicteric and Other (dry MM)
Cardiovascular: S1/S2 and Irregular Rhythm (tachy)
Respiratory: Clear and Non-Labored Respirations
GI: Soft, Non Distended and Non Tender
Neurology: Awake, Alert and Other (confused, does not verbally respond, yells intermittently)
Skin: Warm and Dry
General: Comfortable and Other (NAD)
Assessment
-
Patient is a 79-year-old female with past medical history of paroxysmal atrial fibrillation, V-fib/torsades status post ICD, CAD, CHF, CVA, advanced dementia/parkinsons, chronic foot wound, presenting with altered mental status for 2 days as per
group home report. She has been more somnolent and confused than baseline with decreased PO intake and fevers. Of note, she had undigested pills in her mouth. In ER, she was hypotensive and tachycardic, with signs of urosepsis. She is admitted
to ICU for possible pressor requirements.
Septic shock
Urosepsis
Hyponatremia
Hyperglycemia
Leukocytosis
Change in mental status
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
anemia
hypertension
cardiomyopathy
ventricular tachycardia s/p cardiac defibrillator
afib
esophagitis with bleeding
duodenal ulcer
hypothyroidism
DM2
hyperlipidemia
dementia
parkinsons
heart failure
TIA
GERD
depression
seizure d/o
Arteriogram/debridement with wound VAC placement ([facility]) 09/2023
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 Stable for >10 years.
Plan
Baseline MS reported as conversant, she is only yelling now/not verbally responding
Neuropsychiatric history noted above including dementia/parkinsons/depression
Resume home meds
Pain/sedation: PRN
RASS goals: 0
Hemodynamically stable, not requiring pressors.
Requiring pressors: levo started at low dose, now weaned to off
Cardiac history reviewed--AFib/VF s/p ICD, resume home meds for rate control
Prior ECHO reviewed indicating normal function
Resume home meds
Monitor on telemetry
Oxygen needs: stable on RA
Prior history of lung disease: none, CXR neg
Supplemental O2 as indicated to maintain sats > 89%
CXR/CT reviewed indicating NAD and/or in past
NPO, resume diet when able
Speech eval, high risk
Will need DHT placement likely
Laundromat Worker recommendations
Aspiration precautions, HOB > 30 degrees
GI prophylaxis if indicated
Creat at baseline, no history of renal disease
NA elevation showing FWD, calculated to be 2L, will add D5W IVFs
Repeat BMP today
Void trials
Follow urine output, critical I/Os
Replete electrolytes as needed
Fever and increased WBC on presentation, suspect underlying UTI
Started on empiric antibiotics
Cultures sent/pending
Blood
Urine
MRSA
Follow fever trend, WBC count
Lactate elevated on admission, continue to trend until <2
CBC stable, no signs of bleeding or coagulopathy.
DVT prophylaxis as assessed based on risk, including mechanical SCDs
Can transfuse if indicated for Hb <7, plt < 10
INR WNL
No prior h/o diabetes or thyroid disease
Monitor accuchecks PRN/SS coverage if needed
Can likely transfer to floors today if remains off pressors.
Diagnostic Data
Chest X-Ray: 04/04/24- No acute disease of the chest
02/20/23- No evidence of active cardiopulmonary disease.
CT Scan: AP 04/04/24- No acute pathology of the abdomen or pelvis identified. Incidental possible left adrenal mass versus more likely gastric diverticulum versus less likely exophytic left renal mass. This should further be evaluated by a nonurgent
repeat CT examination of the abdomen with oral and IV contrast. Moderate fecal material throughout the colon.
Mild diverticulosis.
Echo: 02/22/23- Normal left ventricular size, wall thickness and systolic function. No regional wall motion abnormalities are seen. LV ejection fraction is 60-65% by Christianson's method of discs. Diastolic function indeterminate due to atrial
fibrillation. Mitral valve opens normally. Thickened mitral valve leaflets. Mitral annular calcification. Trace mitral regurgitation is seen. Trileaflet aortic valve. Aortic valve opens normally. Aortic sclerosis without stenosis. Thickened aortic
valve with normal leaflet excursion. No aortic stenosis. Trace aortic regurgitation is seen.
PFT's:
Reports and relevant images were personally reviewed.
-----
Critical care time 60 mins -- this includes review of history, physical exam, medications, hemodynamic/ventilator parameters, laboratory data, imaging and discussion with house staff, pharmacy, respiratory therapy, second crusher, and nursing.
[2024-04-05] MEDS: HEPARIN 5000 UNITS SC (07:42)
[2024-04-05] MEDS: PROTONIX IV 40 MG IV ×2 (07:43→20:19)
[2024-04-05] MEDS: NSS (PRESERVATIVE FREE) 10 ML IV ×2 (07:43→20:19)
[2024-04-05 09:52] LABS: Magnesium 1.9 mg/dl (1.6-2.3); Phosphorus 3.4 mg/dl (2.5-4.5)
--- NOTE | 2024-04-05 10:11 | PTCARENOTE ---
Pt received in bed @ 0700. Unable to assess orientation, pt moaning and does not respond with observed purpose. Unable to follow commands but does assist with turns. Rectal temp 99.3F. SaO2 96% on room air. Lungs coarse, diminished, with expiratory
wheeze throughout. A Fib RVR with HR 130s - 150s. Peipheral pulses palpable. Neosynephrine gtt stopped by previous shift. MAP remains > 65 without pressors. Dobhoff tube placed for resumption of home Coreg and Diltiazem. Awaiting placement
confirmation for XR. Incontinent large yellow urine. No bowel movement observed. IVF changed to D5W @ 100 ml/hr.
[2024-04-05 10:50] LABS: Glycohemoglobin (HgbA1c) 6.2 % (4.0-5.6)
--- NOTE | 2024-04-05 11:29 | WOUNDNOTE ---
LEFT LATERAL TOE PI
--- NOTE | 2024-04-05 11:30 | WOUNDNOTE ---
LEFT MEDIAL TOE WOUND
--- NOTE | 2024-04-05 11:31 | WOUNDNOTE ---
RIGHT MEDIAL FOOT
--- NOTE | 2024-04-05 11:32 | WOUNDNOTE ---
[facility] RN note: Patient admitted from [place] with altered MS
See H&P for complete history.
PMH: A-fib, dementia, diabetes, healed right foot wound, CAD, CHF, CVA
Wound Location and type/assessment: Patient admitted with left medial toe unstageable PI. The black eschar is dry with mild erythema surrounding the wound. + pedal pulse, no edema. Per chart review, patient has had debridement and vascular surgery
to right foot, which now appears newly epithelized. Patient also has stage 1 PI of bilateral ischium, bilateral heels and sacrum. She is currently NPO and BMI is 16. Patient able to respond to stimuli only. She requires assistance turning.
Pressure redistribution devices in place: Centrella Max Air, frequent turning and repositioning. Heels off-loaded on pillows.
Plan: Betadine applied to dry eschar on left foot. Protective foam applied or maintained on heels, sacrum and bilateral ischium, and newly healed right foot wound. Patient has several co-morbidities including low BMI, NPO status, poor mobility,
sepsis and diabetes. Wounds may worsen and new wound may develop even with optimal care. RN Sukumar given update. Will confirm orders with hospitalist. Care plan and discharge updated.
[2024-04-05] MEDS: NOVOLOG FLEXPEN-LOW RESISTANCE 3 UNITS SC (11:44)
[2024-04-05] MEDS: D5W 1000 IV ×2 (11:45→19:19)
[2024-04-05 11:54] LABS: Glucose - Point of Care 264 mg/dl (70-99)
[2024-04-05] MEDS: COREG 6.25 MG TUBE ×2 (12:48→20:20)
[2024-04-05] MEDS: DEPAKENE 250 MG TUBE ×2 (12:48→20:20)
[2024-04-05] MEDS: CARDIZEM 30 MG TUBE ×4 (12:48→23:47)
[2024-04-05 13:39] LABS: INR 2.02; PT 23.1 Sec (11.4-14.6)
[2024-04-05] MEDS: AQUAMEPHYTON 50.5 MG IV (13:46)
[2024-04-05 13:50] LABS: Blood Urea Nitrogen 45 mg/dl (7-17); Calcium 9.2 mg/dl (8.4-10.2); Carbon Dioxide 24 mmol/L (22-30); Chloride 124 mmol/L (98-107); Estimated Creatinine Clearance 41 ml/min; Glucose 246 mg/dl (70-99); Potassium 3.5 mmol/L (3.5-5.1); Sodium 154 mmol/L (135-145); eGFR > 60.00
--- NOTE | 2024-04-05 15:22 | W.PN.HOSP.TC ---
Today's Communication/Plan
-
see note
Assessment / Plan
Assessment / Plan
1. Septic shock
Possible urinary tract infection versus other source
-Urinalysis shows 11-15 WBC, +1 leukocyte esterase
-Chest x-ray did not show any clear signs of pneumonia
-Urine culture/blood culture pending (ER ordered one set only before antibiotic administration)
-On exam patient had left middle toe dried necrotic looking hold wound as well, ordering x-rays rule out osteomyelitis
-Required small dose of Levophed, off of it now
-Maintain on empiric cefepime for now
2. TME
-Possibly from sepsis and hypernatremia related
-Due to under lying causes as mentioned above
3. Acute hypernatremia
-Secondary to volume depletion/decreased oral intake with dementia
-Started on D5 water in ICU
-Also got started on tube feed with free water flushes
-Follow-up sodium level
4. Multiple pressure injuries
-Diffuse multiple pressure injury of stage I and II over both heel/buttocks
-wound care evaluated
5. Left eye conjunctivitis
-Some crusting visible
-Eyedrops prn
6. Acute kidney injury prerenal
-resolved with IVF
7. Paroxysmal atrial fibrillation with RVR
-Patient have Dobbhoff tube placed and able to be getting carvedilol and diltiazem through tube
-Not on anticoagulation with increased fall risk and advanced age likely
8. NIDDM
- maintain on ISS and 3U q6 insulin with lantus 10U HS
-will increase lantus/standing novolog dose if needed
History of V-fib/torsades status post ICD
Coronary artery disease
Presumed diastolic HF - EF 60% in February 15
History of CVA
Essential hypertension
GERD
History of upper GI bleeding secondary to erosive esophagitis
Hypercholesterolemia
Hypothyroidism
Advanced dementia with behavioral disturbances
DNR/DNI
DVT prophylaxis�heparin
Care plan discussed with seo executive/pharmacy
Total critical care time 40 mins . Total critical care time documented does not include time spent on separately billed procedures or the services of residents, students, nurses or physician assistants. I personally saw and examined the patient. I
have reviewed all diagnostic interpretations and treatment plans as written. I was present for the julien portions of any procedures performed and the inclusive time noted in any critical care statement. Critical care time includes patient management
by me, time spent at the patients bedside, time to review lab and imaging results, discussing patient care, documentation in the medical record, and time spent with the family or caregiver.
Anticipated Discharge: > 48 hours
Subjective/Interval History
-
Date of Service: April 05, 2024
Patient remains confused/agitated
Afebrile overnight
Objective Data
-
Labs:
Laboratory Results
04/05/24 04/05/24
03:48 13:08
WBC 19.6 H
Hgb 10.8 L
Hct 36.3 L
Plt Count 369
PT 23.1 H
INR 2.02
Sodium 158 H 154 H
Potassium 3.5 3.5
Chloride 127 H 124 H
Carbon Dioxide 24 24
BUN 56 H 45 H
Creatinine 0.9 0.7
Glucose 164 H 246 H
Calcium 9.3 9.2
Total Bilirubin 0.6
AST 20
ALT 15
Alkaline Phosphatase 65
Vital Signs:
Vital Signs
Temp Pulse Resp BP Pulse Ox
98.6 F 145 29 117/82 96
04/05/24 15:17 04/05/24 10:15 04/05/24 10:15 04/05/24 10:15 04/05/24 10:15
I&O
04/04/24 04/05/24 04/06/24
06:59 06:59 06:59
Intake Total 910 / 990 770 / 770
Balance 910 / 990 770 / 770
Review of Systems
-
Unable to obtain full review of systems at this time due to: Dementia
Physical Exam
-
General: Appears Chronically Ill and Cachectic
Respiratory: Clear to Auscultation
Cardiac: Regular Rhythm and Tachycardic
GI: Soft, Nontender and Nondistended
Musculoskeletal: No Edema
Skin: Other
Neuro: Awake, Alert and No Motor Deficits; Negative Oriented
Psych: Agitated and Apparent Dementia
--- NOTE | 2024-04-05 17:34 | PTCARENOTE ---
Pt reassessed. Oriented to name. Answering one questions with one word at time. When asked her name, responds 'Tessa.' When asked if she is in pain, responds 'No.' Moaning intermittently within answers. to visit and stated that mentation is
baseline. XR completed of left foot.
[2024-04-05 17:45] LABS: Glucose - Point of Care 336 mg/dl (70-99)
[2024-04-05] MEDS: NOVOLOG FLEXPEN 3 UNITS SC ×2 (18:24→23:49)
[2024-04-05] MEDS: NOVOLOG FLEXPEN-HIGH RESISTANCE 10 UNITS SC (18:24)
--- NOTE | 2024-04-05 20:00 | PTCARENOTE ---
pt AAOx1, can state her name but cannot follow commands, moaning while answering some questions, nursing asked if she is in pain and she states 'no'. AFIB on the monitor, RA to 1L NC, lungs course/rhonchi, jevity running at 20ml with a 25ml FWF,
Dobhoff in place, incontinent of bowel and bladder, multiple wounds see flowsheet, pt repositioned with pillow support, call newby in reach and bed alarm on.
[2024-04-05 22:19] LABS: Glucose - Point of Care 254 mg/dl (70-99)
[2024-04-05] MEDS: ZYPREXA 15 MG TUBE (22:34)
[2024-04-05] MEDS: LANTUS 0.1 UNITS SC (22:34)
[2024-04-05] MEDS: REMERON 15 MG TUBE (22:34)
[2024-04-05 23:35] LABS: Glucose - Point of Care 284 mg/dl (70-99)
[2024-04-05] MEDS: NOVOLOG FLEXPEN-HIGH RESISTANCE 7 UNITS SC (23:48)
[2024-04-06] VITALS (20 sets, daily range): BP systolic 108–151; BP diastolic 47–95; BMI 17.9
--- NOTE | 2024-04-06 00:16 | PTCARENOTE ---
no changes from prior assessment, pt repositioned with pillow support, bed alarm on.
[2024-04-06 03:38] LABS: Hematocrit 32.7 % (37.0-47.0); Hemoglobin 10.1 g/dL (12.0-16.0); Mean Corp Hgb Conc. 30.9 g/dL (33.0-37.0); Mean Corpuscular Hgb 24.1 pg (27.0-31.0); Platelet Count 262 10^3/uL (130-400); Red Blood Cell Count 4.19 10^6/uL (4.20-5.40); Red Cell Dist. Width 21.6 % (11.5-14.5); White Blood Cell Count 14.1 10^3/uL (4.8-10.8)
[2024-04-06] MEDS: CARDIZEM 30 MG TUBE ×6 (03:39→23:22)
[2024-04-06] MEDS: D5W 1000 IV (03:39)
[2024-04-06] MEDS: MAXIPIME 1000 MG IV (03:40)
[2024-04-06] MEDS: STERILE WATER FOR INJECTION 10 ML IV (03:40)
[2024-04-06 03:47] LABS: INR 1.25; PT 15.8 Sec (11.4-14.6)
[2024-04-06 03:58] LABS: Blood Urea Nitrogen 32 mg/dl (7-17); Calcium 9.3 mg/dl (8.4-10.2); Carbon Dioxide 23 mmol/L (22-30); Chloride 117 mmol/L (98-107); Estimated Creatinine Clearance 48 ml/min; Glucose 180 mg/dl (70-99); Potassium 3.3 mmol/L (3.5-5.1); Sodium 147 mmol/L (135-145); eGFR > 60.00
--- NOTE | 2024-04-06 04:48 | PTCARENOTE ---
no changes from prior assessment
[2024-04-06 05:21] LABS: Glucose - Point of Care 179 mg/dl (70-99)
[2024-04-06] MEDS: NOVOLOG FLEXPEN-HIGH RESISTANCE 2 UNITS SC ×2 (05:30→11:31)
[2024-04-06] MEDS: NOVOLOG FLEXPEN 3 UNITS SC ×3 (05:31→23:20)
[2024-04-06] MEDS: SYNTHROID TUBE ×2 (05:32→06:36)
--- NOTE | 2024-04-06 06:38 | PTCARENOTE ---
Dobhoff occluded when trying to flush, SCIENCE FACULTY MEMBER made aware, p.o K and Synthroid not given this AM due to occluded dobhoff. IV K ordered.
[2024-04-06] MEDS: KCL 270 MEQ IV (07:13)
--- NOTE | 2024-04-06 07:16 | W.PN.INTV ---
Today's Communication / Plan
Recommendations
Doing well, off pressors
Oral means of nutrition an issue, may need replacement DHT or PEG pending speech eval
Continue abx
GOC discussions are certainly warranted
Can transfer to tele today, we will sign off upon transfer
Assessment
-
Patient is a 79-year-old female with past medical history of paroxysmal atrial fibrillation, V-fib/torsades status post ICD, CAD, CHF, CVA, advanced dementia/parkinsons, chronic foot wound, presenting with altered mental status for 2 days as per
retirement report. She has been more somnolent and confused than baseline with decreased PO intake and fevers. Of note, she had undigested pills in her mouth. In ER, she was hypotensive and tachycardic, with signs of urosepsis. She is admitted
to ICU for possible pressor requirements.
Septic shock
Urosepsis
Hyponatremia
Hyperglycemia
Leukocytosis
Change in mental status
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
anemia
hypertension
cardiomyopathy
ventricular tachycardia s/p cardiac defibrillator
afib
esophagitis with bleeding
duodenal ulcer
hypothyroidism
DM2
hyperlipidemia
dementia
parkinsons
heart failure
TIA
GERD
depression
seizure d/o
Arteriogram/debridement with wound VAC placement ([facility]) 09/2023
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 Stable for >10 years.
Plan
Baseline MS reported as conversant, she is only yelling now/not verbally responding
Neuropsychiatric history noted above including dementia/parkinsons/depression
Resume home meds
Pain/sedation: PRN
RASS goals: 0
Hemodynamically stable, not requiring pressors.
Off pressors >24 hours
Cardiac history reviewed--AFib/VF s/p ICD, resume home meds for rate control
Prior ECHO reviewed indicating normal function
Resume home meds
Monitor on telemetry
Oxygen needs: stable on RA
Prior history of lung disease: none, CXR neg
Supplemental O2 as indicated to maintain sats > 89%
CXR/CT reviewed indicating NAD and/or in past
NPO, DHT clogged/removed
Speech eval, high risk
Will need DHT re-placement likely, may need PEG eval if not able to feed
This was discussed in past
Cellophane Tester recommendations
Aspiration precautions, HOB > 30 degrees
GI prophylaxis if indicated
Creat at baseline, no history of renal disease
Sodium improved, stop IVFs
Void trials
Follow urine output, critical I/Os
Replete electrolytes as needed
Fever and increased WBC on presentation, suspect underlying UTI
Started on empiric antibiotics: CFP, off vanc
Cultures sent/pending
Blood neg
Urine + enterococcus
MRSA neg
Follow fever trend, WBC count
Lactate elevated on admission, continue to trend until <2
CBC stable, no signs of bleeding or coagulopathy.
DVT prophylaxis as assessed based on risk, including mechanical SCDs
Can transfuse if indicated for Hb <7, plt < 10
INR WNL
No prior h/o diabetes or thyroid disease
Monitor accuchecks PRN/SS coverage if needed
Can likely transfer to floors today if remains off pressors.
Diagnostic Data
Chest X-Ray: 04/04/24- No acute disease of the chest
02/20/23- No evidence of active cardiopulmonary disease.
CT Scan: AP 04/04/24- No acute pathology of the abdomen or pelvis identified. Incidental possible left adrenal mass versus more likely gastric diverticulum versus less likely exophytic left renal mass. This should further be evaluated by a nonurgent
repeat CT examination of the abdomen with oral and IV contrast. Moderate fecal material throughout the colon.
Mild diverticulosis.
Echo: 02/22/23- Normal left ventricular size, wall thickness and systolic function. No regional wall motion abnormalities are seen. LV ejection fraction is 60-65% by Christianson's method of discs. Diastolic function indeterminate due to atrial
fibrillation. Mitral valve opens normally. Thickened mitral valve leaflets. Mitral annular calcification. Trace mitral regurgitation is seen. Trileaflet aortic valve. Aortic valve opens normally. Aortic sclerosis without stenosis. Thickened aortic
valve with normal leaflet excursion. No aortic stenosis. Trace aortic regurgitation is seen.
PFT's:
Reports and relevant images were personally reviewed.
-----
Critical care time 31 mins -- this includes review of history, physical exam, medications, hemodynamic/ventilator parameters, laboratory data, imaging and discussion with house staff, pharmacy, respiratory therapy, well treatment offsider, and nursing.
Subjective Dataa
Subjective Data
Date of Service:
Date of Service: April 06, 2024
Chief Complaint: Proof Operator Follow Up
Subjective:
no events on, remains off pressors
remains clinically unchanged
DHT clogged overnight, removed
Objective Data
Data Reviewed
Vital Signs / I&O / Oxygen:
Vital Signs
Temp Pulse Resp BP Pulse Ox
99.1 F 100 21 130/75 96
04/06/24 03:06 04/06/24 06:30 04/06/24 06:30 04/06/24 06:30 04/06/24 03:50
Intake and Output
04/05/24 04/06/24 04/07/24
06:59 06:59 06:59
Intake Total 910 / 990 2915 / 2915
Balance 910 / 990 2915 / 2915
SaO2 96
Nasal Cannula flow liters per 1
minute
Physical Exam
General: Comfortable and Other (NAD, agitation intermittently noted)
HEENT: Normocephalic, Anicteric and Other (dry MM)
Cardiovascular: S1-S2 and Regular Rhythm
Respiratory: Clear and Non-Labored Respirations
GI: Soft, Non Distended and Non Tender
Neurology: Awake (eyes open), Non Verbal (calls out, but does not speak/follow commands) and Other (AAOx0)
Skin: Warm and Dry
Labs/Micro/Reports
Lab Data
04/06/24 03:10
04/06/24 03:10
Laboratory Results
04/05/24 04/06/24
13:08 03:10
PT 23.1 H 15.8 H
INR 2.02 1.25
Microbiology
04/04/24 15:27 Blood/Venous Blood Culture - Preliminary
No Growth in 24 hours- Final report to follow
04/04/24 15:27 Urine Urine Culture - Preliminary
[2024-04-06] MEDS: NSS (PRESERVATIVE FREE) 10 ML IV ×2 (07:46→20:08)
[2024-04-06] MEDS: PROTONIX IV 40 MG IV ×2 (07:46→20:07)
[2024-04-06] MEDS: HEPARIN 5000 UNITS SC ×2 (07:46→20:08)
--- NOTE | 2024-04-06 08:04 | PTCARENOTE ---
Addendum entered by Chey Adame RN 04/06/24 09:26:
discussed during rounds with hospitalist, chief of field operations. ST at bedside. Hospitalist to contact GI to attempt Dobbhoff placement
Original Note:
occluded dobhoff removed. attempted replacement X2 by two clinicians. unsuccessful. assessments per work list. afib, k rider infusing. coarse breath sounds. frequent cough. suctions for large amounts thick [place]oba blood tinged sputum. incontinent large
amounts urine. patient oriented to name, verbalizes 'I want to go to bed' in response to questions. bed alarm maintained
--- NOTE | 2024-04-06 08:22 | CM ---
Entry from yesterday.
CM following re: discharge planning.
Reviewed pt's chart, met with pt and pt's at bedside.
Pt is a 79 year old female, admitted with primary dx of Sepsis/UTI
Pt is a care home care resident at [facility], requires total care, on Medicaid 15 day bed hold.
D/C plan: return back to [facility] when medically stable.
CM will follow with discharge plan updates as hospitalization progresses
--- NOTE | 2024-04-06 09:34 | PTOTSP ---
Addendum entered and electronically signed by ST Margot 04/06/24 09:39:
*If opting for PO for comfort understanding aspiration risks, consider puree, thin liquids.*
Original Note:
Dysphagia Evaluation
Patient presents with signs/behaviors concerning for oral/pharyngeal dysphagia related to TME and baseline advanced dementia. Acute aspiration risk is elevated. Video swallow study not appropriate at this time. Hold aspiration risk hydration
protocol pending GOC.
Recommend:
1. NPO - consider goals of care discussion about comfort feeding understanding risks/complications of aspiration
2. Medications - non-oral if able; essential medications crushed in puree with verbal cues to swallow and suction s/p administration as needed.
3. Oral care 3x daily with suctioning
4. Dysphagia therapy follow up pending patient/family goals of care.
[2024-04-06] MEDS: DEPAKENE 250 MG TUBE ×2 (09:52→20:08)
[2024-04-06] MEDS: COREG 6.25 MG TUBE ×2 (09:52→20:08)
--- NOTE | 2024-04-06 09:59 | PN.CDI ---
CDI
- -
CDI:
Physician Documentation Request
Admit Date: 04/04/24 17:32
Dear Doctor Ede,
Patient is admitted with septic shock. Progress notes and ED exam describe the patient as cachectic.
04/05 note states ' Pt meets criteria for severe protein calorie malnutrition of chronic illness with > 20% wt loss x 1 yr reflecting prolonged inadequate intake prior to hospital admission < 75% x >1mo, visible severe loss of subcutaneous fat
(orbital) and muscle (temporal, clavicle). '
Based on the above information and your assessment, which of the following most accurately represents the patient's nutritional status?
Malnutrition (specify if mild, moderate or severe)
Cachexia without malnutrition
Other (please specify)Unable to determine
[place] Criteria ([employer]ist 2017)
2 or more criteria must be present for either
non severe or severe malnutrition
Note that the criteria differs related to the
presence of an acute or chronic illness
Acute Illness Chronic Illness
Energy Intake Non Severe: <75% for >7 days Non Severe: <75% for >1 month
Severe: <50% for >5 days Severe: <75% for >1 month
Weight Loss Non Severe: 1-2% over 1 week Non Severe: 5% over 1 month
5% over 1 month 7.5% over 3 months
7.5% over 3 months 10% over 6 months
1 year N/A 20% over 1 year
Severe: >2% over 1 week Severe: >5% over 1 month
>5% over 1 month >7.5% over 3 months
>7.5% over 3 months >10% over 6 months
1 year N/A >20% over 1 year
Body Fat Non Severe: Mild Decrease Non Severe: Mild Loss
Severe: Moderate Decrease Severe: Severe Loss
Muscle Mass Non Severe: Mild Decrease Non Severe: Mild Loss
Severe: Moderate Decrease Severe: Severe Loss
Fluid Accumulation Non Severe: Mild Accumulation Non Severe: Mild Accumulation
Severe: Moderate to severe Severe: Moderate to severe
accumulation accumulation
Reduced Waist Cutter Strength Non Severe: N/A Non Severe: N/A
Severe: Measurably reduced Severe: Measurably reduced
Additional criteria that can be used to Determine if Mild or Moderate Malnutrition ([employer] Manual 2018)
Mild Moderate Severe
Albumin gm/dl <3.0 gm/dl <2.5 gm/dl <2.0 gm/dl
Pre Albumin mg/dl <15 gm/dl <10 mg/dl <5.0 mg/dl
BMI <18.5 <17 <16
Use of terms such as suspected, likely, concern for, or probable (associated with a specific diagnosis that is being evaluated, monitored, or treated as if it exists) are acceptable and can be coded in the inpatient setting, when documented at the
time of discharge.
Thank you,
Shannan Alatorre RN, BSN
CDI Specialist
tiger text
Please use your independent medical judgment in providing your response.
--- NOTE | 2024-04-06 10:04 | PN.CDI ---
CDI
- -
CDI:
Physician Documentation Request
Admit Date: 04/04/24 17:32
Dear Doctor Ede,
Patient admitted for septic shock.
Lactic acid on 710 resulted as 5.1.
Could you please provide a diagnosis that supports the above lab abnormalities and additional evaluation, monitoring and/or treatment rendered:
Lactic acidosis
Abnormal lab value clinically insignificant
Other
Use of terms such as suspected, likely, concern for, or probable (associated with a specific diagnosis that is being evaluated, monitored, or treated as if it exists) are acceptable and can be coded in the inpatient setting, when documented at the
time of discharge.
Thank you,
Shannan Alatorre RN, BSN
CDI Specialist
tiger text
Please use your independent medical judgment in providing your response.
[2024-04-06] MEDS: NOVOLOG FLEXPEN SC (11:29)
[2024-04-06 11:38] LABS: Glucose - Point of Care 196 mg/dl (70-99)
[2024-04-06] MEDS: UNASYN IV ×3 (12:14→23:23)
--- NOTE | 2024-04-06 12:57 | W.PN.UPDATE ---
Update Note
Progress Note Update
DHT clogged and unable to replace. Now placed in right nare without difficulty at 65cm. confirmed with air insufflation. Check X ray to confirm placement prior to use.
--- NOTE | 2024-04-06 13:57 | PTCARENOTE ---
dobhoff reinserted by GI, xray confirms placement. tube feeds restarted at prior rate off 30ml/hr with ordered water flush
[2024-04-06] MEDS: NOVOLOG FLEXPEN-HIGH RESISTANCE 4 UNITS SC ×2 (17:24→23:21)
[2024-04-06 17:34] LABS: Glucose - Point of Care 227 mg/dl (70-99)
--- NOTE | 2024-04-06 18:59 | W.PN.HOSP.TC ---
Today's Communication/Plan
-
see note
Assessment / Plan
Assessment / Plan
1. Septic shock -resolved
Possible urinary tract infection versus other source
-Urinalysis shows 11-15 WBC, +1 leukocyte esterase
-Chest x-ray did not show any clear signs of pneumonia
-blood culture neg(ER ordered one set only before antibiotic administration)
-Urine culture growing Enterococcus species
-Foot x-ray did not show any overt osteomyelitis
-Required small dose of Levophed, off of it now
-Maintain on empiric unasyn
2. TME
Dementia with behavioral problems
Dysphagia
-Possibly from sepsis and hypernatremia related
-teat under lying causes as mentioned above
-Speech therapy cleared patient for pills and crushed applesauce if needed.
3. Acute hypernatremia
-Secondary to volume depletion/decreased oral intake with dementia
-Got D5 water in ICU
-Also got started on tube feed with free water flushes
-Follow-up sodium level improved
4. Multiple pressure injuries
-Diffuse multiple pressure injury of stage I and II over both heel/buttocks
-wound care evaluated
5. Left eye conjunctivitis
-Some crusting visible
-Eyedrops prn
6. Acute kidney injury prerenal
-resolved with IVF
7. Paroxysmal atrial fibrillation with RVR
-Patient have Dobbhoff tube placed and able to be getting carvedilol and diltiazem through tube
-Not on anticoagulation with increased fall risk and advanced age likely
8. NIDDM
- maintain on ISS and 3U q6 insulin with lantus 10U HS
-will increase lantus/standing novolog dose if needed
History of V-fib/torsades status post ICD
Coronary artery disease
Presumed diastolic HF - EF 60% in February 15
History of CVA
Essential hypertension
GERD
History of upper GI bleeding secondary to erosive esophagitis
Hypercholesterolemia
Hypothyroidism
Advanced dementia with behavioral disturbances
DNR/DNI
DVT prophylaxis�heparin
Patient poor prognosis discussed with family member son/spouse at bedside. Patient apparently had previous episodes of complicated hospital course and overall in declining health condition. I discussed with patient likely appropriate for hospice
with unable to maintain good oral intake and related complications from that and due to decubitus ulcers. Family wants to see if patient condition would improve. Dobbhoff tube as we have nutrition was discussed as possible option and family
interested, I have discussed that patient might not be candidate due to increased risk for procedure and if so still will need to go for hospice care. Family have voiced understanding.
Anticipated Discharge: > 48 hours
Subjective/Interval History
-
Date of Service: April 06, 2024
Initial Dobbhoff tube clogged, new tube was able to be placed by GI
Patient remains agitated at time
Afebrile overnight
No acute events reported
Objective Data
-
Vital Signs:
Vital Signs
Temp Pulse Resp BP Pulse Ox
98.3 F 91 22 108/47 95
04/06/24 15:50 04/06/24 18:00 04/06/24 18:00 04/06/24 15:39 04/06/24 12:10
I&O
04/05/24 04/06/24 04/07/24
06:59 06:59 06:59
Intake Total 910 / 990 2915 / 3082.5 1430.0 / 1430.0
Balance 910 / 990 2915 / 3082.5 1430.0 / 1430.0
Review of Systems
-
Unable to obtain full review of systems at this time due to: Dementia
Physical Exam
-
General: Appears Chronically Ill and Cachectic
Respiratory: Clear to Auscultation
Cardiac: Regular Rhythm and Tachycardic
GI: Soft, Nontender and Nondistended
Musculoskeletal: No Edema
Skin: Other
Neuro: Awake, Alert and No Motor Deficits; Negative Oriented
Psych: Agitated and Apparent Dementia
--- NOTE | 2024-04-06 20:53 | PTCARENOTE ---
Assumed care of pt at 1900. Pt is alert to self only (responds to her name), will not answer any questions or follow any commands at this time, although said 'no' when asked if she was in pain. Continuously moans no matter what is going on.
Assessment completed, see nursing shift assessment flowsheet for full details. AFib 90s-low 100s on monitor. Pt is med surg level of care.
[2024-04-06] MEDS: ZYPREXA 15 MG TUBE (21:57)
[2024-04-06] MEDS: REMERON 15 MG TUBE (21:58)
[2024-04-06] MEDS: LANTUS 0.1 UNITS SC (23:20)
[2024-04-06 23:26] LABS: Glucose - Point of Care 237 mg/dl (70-99)
[2024-04-07] VITALS (10 sets, daily range): BP systolic 84–135; BP diastolic 52–92; BMI 18.0
[2024-04-07] MEDS: CARDIZEM 30 MG TUBE ×6 (04:35→23:39)
[2024-04-07 05:54] LABS: Glucose - Point of Care 238 mg/dl (70-99)
[2024-04-07 06:01] LABS: Blood Urea Nitrogen 21 mg/dl (7-17); Calcium 9.4 mg/dl (8.4-10.2); Carbon Dioxide 21 mmol/L (22-30); Chloride 114 mmol/L (98-107); Estimated Creatinine Clearance 52 ml/min; Glucose 229 mg/dl (70-99); Potassium 3.7 mmol/L (3.5-5.1); Sodium 142 mmol/L (135-145); eGFR > 60.00
[2024-04-07] MEDS: UNASYN IV ×4 (06:06→23:20)
[2024-04-07] MEDS: NOVOLOG FLEXPEN-HIGH RESISTANCE 4 UNITS SC ×2 (06:07→23:19)
[2024-04-07] MEDS: SYNTHROID 137 MCG TUBE (06:07)
[2024-04-07] MEDS: NOVOLOG FLEXPEN 3 UNITS SC (06:08)
[2024-04-07 07:10] LABS: Hematocrit 32.2 % (37.0-47.0); Hemoglobin 10.2 g/dL (12.0-16.0); Mean Corp Hgb Conc. 31.7 g/dL (33.0-37.0); Mean Corpuscular Hgb 24.1 pg (27.0-31.0); Mean Corpuscular Volume 75.9 fL (81.0-99.0); Red Blood Cell Count 4.24 10^6/uL (4.20-5.40); Red Cell Dist. Width 20.9 % (11.5-14.5); White Blood Cell Count 9.8 10^3/uL (4.8-10.8)
[2024-04-07] MEDS: PROTONIX IV 40 MG IV ×2 (07:52→20:07)
[2024-04-07] MEDS: NSS (PRESERVATIVE FREE) 10 ML IV ×2 (07:52→20:07)
[2024-04-07] MEDS: HEPARIN 5000 UNITS SC ×2 (07:52→20:06)
[2024-04-07] MEDS: FEOSOL 325 MG TUBE (08:05)
[2024-04-07] MEDS: COREG 6.25 MG TUBE ×2 (08:05→20:06)
[2024-04-07] MEDS: DEPAKENE 250 MG TUBE ×2 (08:05→20:06)
[2024-04-07] MEDS: LIPITOR 40 MG TUBE (08:05)
--- NOTE | 2024-04-07 09:28 | PTCARENOTE ---
report and handoff in room at 0715, rests unless disturbed, when stimulated, moans and groans, no interaction at this time. TF continue via small bore Feeding tube, at goal. presently clean and dry, no incontinence. positioned for comfort. off
monitors, med surg level of care.
--- NOTE | 2024-04-07 10:12 | W.PN.HOSP.TC ---
Addendum entered and electronically signed by Damon Mera MD 04/07/24 14:22:
Severe protein calorie malnutrition
Lactic acidosis
Original Note:
Today's Communication/Plan
-
continue abx
f/u Na level
maintain on TF
Assessment / Plan
Assessment / Plan
1. Septic shock -resolved
Enterococcal urinary tract infection
-Urinalysis shows 11-15 WBC, +1 leukocyte esterase
-Chest x-ray did not show any clear signs of pneumonia
-blood culture neg(ER ordered one set only before antibiotic administration)
-Urine culture growing Enterococcus species
-Foot x-ray did not show any overt osteomyelitis
-Required small dose of Levophed, off of it now
-Maintain on empiric unasyn
2. TME - ongoing
Dementia with behavioral problems
Dysphagia
-Possibly from sepsis and hypernatremia related
-teat under lying causes as mentioned above
-Speech therapy cleared patient for pills and crushed applesauce if needed.
-patient somnolent in morning, will decrease zyprexa dose to 10mg
3. Acute hypernatremia -resolved
-Secondary to volume depletion/decreased oral intake with dementia
-Got D5 water in ICU
-Also got started on tube feed with free water flushes
-Follow-up sodium level improved
4. Multiple pressure injuries
-Diffuse multiple pressure injury of stage I and II over both heel/buttocks
-wound care evaluated
5. Left eye conjunctivitis
-Some crusting visible
-Eyedrops prn
6. Acute kidney injury prerenal
-resolved with IVF
7. Paroxysmal atrial fibrillation with RVR
-Patient have Dobbhoff tube placed and able to be getting carvedilol and diltiazem through tube
-Not on anticoagulation with increased fall risk and advanced age likely
8. NIDDM
- maintain on ISS and 5U q6 insulin with lantus 13U HS
-will increase lantus/standing novolog dose if needed
History of V-fib/torsades status post ICD
Coronary artery disease
Presumed diastolic HF - EF 60% in February 15
History of CVA
Essential hypertension
GERD
History of upper GI bleeding secondary to erosive esophagitis
Hypercholesterolemia
Hypothyroidism
Advanced dementia with behavioral disturbances
DNR/DNI
DVT prophylaxis�heparin
Patient poor prognosis discussed with family member son/spouse at bedside. Patient apparently had previous episodes of complicated hospital course and overall in declining health condition. I discussed with family that patient likely appropriate
for hospice with unable to maintain good oral intake and decubitus ulcers. Family wants to see if patient condition would improve. PEG tube for nutrition was discussed as possible option and family interested, I have discussed that patient might
not be candidate due to increased risk for procedure and if so still will need to go for hospice care. Family have voiced understanding.
Anticipated Discharge: > 48 hours
Subjective/Interval History
-
Date of Service: April 07, 2024
remains sedated
dobhoff in place on TF
no acute issue reported overnight
Objective Data
-
Labs:
Laboratory Results
04/07/24 04/07/24
05:30 06:33
WBC Cancelled 9.8
Hgb Cancelled 10.2 L
Hct Cancelled 32.2 L
Plt Count Cancelled Not Reportable
Sodium 142
Potassium 3.7
Chloride 114 H
Carbon Dioxide 21 L
BUN 21 H
Creatinine 0.6
Glucose 229 H
Calcium 9.4
Vital Signs:
Vital Signs
Temp Pulse Resp BP Pulse Ox
99.1 F 95 24 119/84 98
04/07/24 10:00 04/07/24 08:05 04/07/24 08:00 04/07/24 08:05 04/07/24 06:23
I&O
04/06/24 04/07/24 04/08/24
06:59 06:59 06:59
Intake Total 2915 / 3082.5 2815.0 / 2880.0 335 / 335
Balance 2915 / 3082.5 2815.0 / 2880.0 335 / 335
Review of Systems
-
Unable to obtain full review of systems at this time due to: Patient Non-verbal
Physical Exam
-
General: Appears Chronically Ill and Cachectic
HEENT: Other (Dobhoff tube in place )
Respiratory: Clear to Auscultation
Cardiac: Regular Rhythm and S1/S2; Negative Murmur
GI: Soft, Nontender and Nondistended
Musculoskeletal: No Edema
Skin: Other
Neuro: Negative Awake or Alert
Psych: Apparent Dementia
--- NOTE | 2024-04-07 11:30 | PTCARENOTE ---
turned, remains dry, oral care given. allows oropharygeal suctioning with very weak cough elicited. thick sputum from oropharynx. remains NPO, TF infuse. blood sugar obtained, covered per order.
[2024-04-07] MEDS: NOVOLOG FLEXPEN 5 UNITS SC ×3 (11:35→23:19)
[2024-04-07] MEDS: NOVOLOG FLEXPEN-HIGH RESISTANCE 7 UNITS SC ×2 (11:35→17:58)
[2024-04-07 11:45] LABS: Glucose - Point of Care 258 mg/dl (70-99)
[2024-04-07 12:41] LABS: Glucose - Point of Care 246 mg/dl (70-99)
[2024-04-07 12:50] LABS: Platelet Count 174 10^3/uL (130-400)
--- NOTE | 2024-04-07 14:08 | PTCARENOTE ---
Assumed care of pt. @ approx 1230, assessment per charting- see flow sheet. Pt. remains on TF's @ goal via dobhoff. Pt. repositioned per protocol. @ bedside, updated on plan of care. Safe environment maintained.
[2024-04-07 18:08] LABS: Glucose - Point of Care 262 mg/dl (70-99)
[2024-04-07] MEDS: ZYPREXA 10 MG TUBE (21:37)
[2024-04-07] MEDS: REMERON 15 MG TUBE (21:37)
--- NOTE | 2024-04-07 22:37 | PTCARENOTE ---
Assumed care of pt at 1900. Pt is A/O x1 to self only, able to state her first name when asked, opens her eyes to voice or tactile stimuli. Unable to answer any other questions appropriately except to say no when asked if she was in pain. Pt has not
been following commands. Physical assessment completed, see nursing shift assessment flowsheet for full details. Currently med/surg level of care.
[2024-04-07] MEDS: LANTUS 0.13 UNITS SC (23:19)
[2024-04-07 23:29] LABS: Glucose - Point of Care 215 mg/dl (70-99)
[2024-04-08 00:06] VITALS: BP 131/64
[2024-04-08 04:00] VITALS: BP 117/86
[2024-04-08] MEDS: CARDIZEM 30 MG TUBE ×5 (04:04→22:25)
[2024-04-08] MEDS: SYNTHROID 137 MCG TUBE (05:06)
[2024-04-08] MEDS: UNASYN IV ×3 (05:25→17:53)
[2024-04-08] MEDS: NOVOLOG FLEXPEN-HIGH RESISTANCE 2 UNITS SC (06:00)
[2024-04-08] MEDS: NOVOLOG FLEXPEN 5 UNITS SC ×3 (06:01→17:53)
[2024-04-08 06:04] LABS: Hematocrit 32.2 % (37.0-47.0); Hemoglobin 10.1 g/dL (12.0-16.0); Mean Corp Hgb Conc. 31.4 g/dL (33.0-37.0); Mean Corpuscular Hgb 24.5 pg (27.0-31.0); Mean Platelet Volume 12.6 fL (7.4-10.4); Platelet Count 239 10^3/uL (130-400); Red Blood Cell Count 4.13 10^6/uL (4.20-5.40); Red Cell Dist. Width 20.5 % (11.5-14.5); White Blood Cell Count 8.4 10^3/uL (4.8-10.8)
[2024-04-08 06:08] LABS: Glucose - Point of Care 175 mg/dl (70-99)
[2024-04-08 06:19] LABS: Blood Urea Nitrogen 21 mg/dl (7-17); Calcium 9.4 mg/dl (8.4-10.2); Carbon Dioxide 27 mmol/L (22-30); Chloride 110 mmol/L (98-107); Estimated Creatinine Clearance 52 ml/min; Glucose 141 mg/dl (70-99); Potassium 3.9 mmol/L (3.5-5.1); Sodium 142 mmol/L (135-145); eGFR > 60.00
--- NOTE | 2024-04-08 08:35 | W.PN.HOSP.TC ---
Today's Communication/Plan
-
see note
Assessment / Plan
Assessment / Plan
1. Septic shock -resolved
Enterococcal urinary tract infection
-Urinalysis shows 11-15 WBC, +1 leukocyte esterase
-Chest x-ray did not show any clear signs of pneumonia
-blood culture neg(ER ordered one set only before antibiotic administration)
-Urine culture growing Enterococcus species
-Foot x-ray did not show any overt osteomyelitis
-Required small dose of Levophed, off of it now
-Maintain on empiric unasyn
2. TME - Improved
Dementia with behavioral problems
Dysphagia
-Possibly from sepsis and hypernatremia related
-treat under lying causes as mentioned above
-Speech therapy cleared patient for pills and crushed applesauce if needed.
-patient awake and morning episodically, not answering any questions -Per family this is baseline.
-Discussion Tuesday and patient family interested in PEG tube if needed. Discussed poor prognosis although patient family remains hopeful that patient will improve as she has done this in the past. Patient truly qualifies for hospice with end-stage
dementia/failure to thrive/multiple decubitus wound.
3. Acute hypernatremia -resolved
-Secondary to volume depletion/decreased oral intake with dementia
-Got D5 water in ICU
-Also got started on tube feed with free water flushes
-Follow-up sodium level improved
4. Multiple pressure injuries
-Diffuse multiple pressure injury of stage I and II over both heel/buttocks
-wound care evaluated
5. Left eye conjunctivitis
-Some crusting visible
-Eyedrops prn
6. Acute kidney injury prerenal
-resolved with IVF
7. Paroxysmal atrial fibrillation with RVR
-Patient have Dobbhoff tube placed and able to be getting carvedilol and diltiazem through tube
-Not on anticoagulation with increased fall risk and advanced age likely
8. NIDDM
- maintain on ISS and 5U q6 insulin with lantus 13U HS
-will increase lantus/standing novolog dose if needed
History of V-fib/torsades status post ICD
Coronary artery disease
Presumed diastolic HF - EF 60% in February 15
History of CVA
Essential hypertension
GERD
History of upper GI bleeding secondary to erosive esophagitis
Hypercholesterolemia
Hypothyroidism
Advanced dementia with behavioral disturbances
DNR/DNI
DVT prophylaxis�heparin
Discussion on 04/06 Patient poor prognosis discussed with family member son/spouse at bedside. Patient apparently had previous episodes of complicated hospital course and overall in declining health condition. I discussed with family that patient
likely appropriate for hospice with unable to maintain good oral intake and decubitus ulcers. Family wants to see if patient condition would improve. PEG tube for nutrition was discussed as possible option and family interested, I have discussed
that patient might not be candidate due to increased risk for procedure and if so still will need to go for hospice care. Family have voiced understanding.
Anticipated Discharge: 24 - 48 hours
Subjective/Interval History
-
Date of Service: April 08, 2024
remains awake and periodically moaning
Afebrile overnight
No acute episodes
Objective Data
-
Labs:
Laboratory Results
04/08/24
05:47
WBC 8.4
Hgb 10.1 L
Hct 32.2 L
Plt Count 239 D
Sodium 142
Potassium 3.9
Chloride 110 H
Carbon Dioxide 27
BUN 21 H
Creatinine 0.5 L
Glucose 141 H
Calcium 9.4
Vital Signs:
Vital Signs
Temp Pulse Resp BP Pulse Ox
98.5 F 93 32 117/95 96
04/08/24 03:00 04/08/24 04:04 04/07/24 23:29 04/08/24 04:04 04/07/24 23:29
I&O
04/07/24 04/08/24 04/09/24
06:59 06:59 06:59
Intake Total 2815.0 / 2880.0 2114
Balance 2815.0 / 2880.0 2114
Review of Systems
-
Respiratory: Reports No Symptoms
Cardiac: Reports No Symptoms
Abdomen/GI: Reports No Symptoms
Physical Exam
-
General: Appears Chronically Ill and Cachectic
HEENT: Other (Dobhoff tube in place )
Respiratory: Clear to Auscultation
Cardiac: Regular Rhythm and S1/S2; Negative Murmur
GI: Soft, Nontender and Nondistended
Musculoskeletal: No Edema
Skin: Other
Neuro: Negative Awake or Alert
Psych: Apparent Dementia
[2024-04-08 09:00] VITALS: BP 109/57
[2024-04-08] MEDS: COREG 6.25 MG TUBE ×2 (09:02→22:18)
[2024-04-08] MEDS: PROTONIX IV 40 MG IV ×2 (09:02→22:17)
[2024-04-08] MEDS: LIPITOR 40 MG TUBE (09:02)
[2024-04-08] MEDS: FEOSOL 325 MG TUBE (09:02)
[2024-04-08] MEDS: DEPAKENE 250 MG TUBE ×2 (09:02→22:25)
[2024-04-08] MEDS: HEPARIN 5000 UNITS SC ×2 (09:03→22:18)
[2024-04-08] MEDS: NSS (PRESERVATIVE FREE) 10 ML IV ×2 (09:03→22:17)
[2024-04-08 11:56] LABS: Glucose - Point of Care 250 mg/dl (70-99)
[2024-04-08] MEDS: NOVOLOG FLEXPEN-HIGH RESISTANCE 7 UNITS SC (12:15)
[2024-04-08 15:34] VITALS: BP 115/100
[2024-04-08 16:39] VITALS: BP 123/61
--- NOTE | 2024-04-08 17:44 | PTOTSP ---
ST Follow-Up
Pt continues to present with a moderate oropharyngeal dysphagia characterized by reduced bolus manipulation and prolonged anterior to posterior transport, delayed swallow initiations, and inconsistent airway protection with PO trials.
Recommendations:
- Continue NPO with primary nutrition/hydration and meds via DHT.
- No ARHP at this time.
- Aspiration precautions: HOB upright as often as possible; oral care QID with suctioning; suctioning oropharyngeal secretions PRN.
- STUNNER to consider bedside re-assessment without DHT present.
- Pt would benefit from a VFSS for further objective information re: swallowing function.
- STUNNER will continue to follow closely to re-assess pt's candidacy for resuming PO intake.
- Ongoing GOC discussions.
[2024-04-08] MEDS: NOVOLOG FLEXPEN-HIGH RESISTANCE 4 UNITS SC (18:01)
[2024-04-08 18:02] LABS: Glucose - Point of Care 214 mg/dl (70-99)
[2024-04-08 22:16] LABS: Glucose - Point of Care 310 mg/dl (70-99)
[2024-04-08] MEDS: REMERON 15 MG TUBE (22:18)
[2024-04-08] MEDS: ZYPREXA 10 MG TUBE (22:24)
[2024-04-08] MEDS: LANTUS 0.13 UNITS SC (23:18)
[2024-04-08 23:38] VITALS: BP 98/58
[2024-04-09 00:01] LABS: Glucose - Point of Care 237 mg/dl (70-99)
[2024-04-09] MEDS: NOVOLOG FLEXPEN 5 UNITS SC ×4 (00:55→17:45)
[2024-04-09] MEDS: NOVOLOG FLEXPEN-HIGH RESISTANCE 4 UNITS SC ×2 (00:55→06:22)
[2024-04-09] MEDS: UNASYN IV ×4 (00:56→17:34)
[2024-04-09] MEDS: CARDIZEM 30 MG TUBE ×7 (00:58→23:59)
[2024-04-09] MEDS: TYLENOL ORAL SOLUTION 650 MG PO (01:25)
--- NOTE | 2024-04-09 01:25 | PTCARENOTE ---
Pt unable to communicate pain. Pt moaning, tense and rigid. TR[employer] MARK EXAMINER made aware, new order provided, see MARCIO, Tylenol administered. Will reassess pain.
[2024-04-09 06:08] LABS: Glucose - Point of Care 217 mg/dl (70-99)
[2024-04-09] MEDS: SYNTHROID 137 MCG TUBE (06:22)
[2024-04-09 07:35] VITALS: BP 150/89
[2024-04-09] MEDS: DEPAKENE 250 MG TUBE ×2 (08:37→19:54)
[2024-04-09] MEDS: HEPARIN 5000 UNITS SC ×2 (08:37→19:55)
[2024-04-09] MEDS: NSS (PRESERVATIVE FREE) 10 ML IV ×2 (08:37→19:55)
[2024-04-09] MEDS: PROTONIX IV 40 MG IV ×2 (08:37→19:55)
[2024-04-09] MEDS: FEOSOL 325 MG TUBE (08:38)
[2024-04-09] MEDS: LIPITOR 40 MG TUBE (08:38)
[2024-04-09] MEDS: COREG 6.25 MG TUBE ×2 (08:41→19:54)
--- NOTE | 2024-04-09 09:37 | W.PN.HOSP.TC ---
Addendum entered and electronically signed by Cat Frances MD 04/09/24 17:03:
79 y/o female with MS change
Patient awake alert gives her name
No other conversations or answers to questions.
Cardiovascular system S1-S2 appreciated
Chest clear to auscultation
Stage I sacral decubitus ulcer
Pressure injury on the medial foot with redness
Podiatry evaluation
# Septic shock
Source enterococcal UTI
1 set of blood cultures negative
Foot v-rfn-okfqtqjcgkggt changes. Will get an MRI
Multiple decubitus ulcers potentially could be source
ID evaluation
Off Levophed
Currently on Unasyn
# Lactic acidosis-Resolved
# TME improved
# Dysphagia-video swallow evaluation
Speech following
Previous attending's discussion family would be interested in PEG tube
# Hypernatremia
Likely secondary to volume depletion
Free water replacement
# Multiple pressure injuries
# VIKTORIA-Resolved
# Paroxysmal atrial fibrillation with RVR
Patient have Dobbhoff tube placed and able to be getting carvedilol and diltiazem through tube
Not on anticoagulation with increased fall risk and advanced age likely
# DM
Lantus 13U and NovoLog 5 U and SSI
Increase Lantus to 15 U
Hemoglobin A1c 6.2
Restart metformin
# Constipation- Resolved
# Underweight
# Anemia-iron sulfate
# Possible left adrenal mass versus more likely gastric diverticulum versus less likely exophytic left renal mass-OP follow up
# Hypoalbuminemia
# History of V-fib/torsades status post ICD
#Coronary artery disease
# Chronic diastolic HF - EF 60% in February 15
# History of CVA-ASA,Statin
# Essential hypertension
# GERD/History of upper GI bleeding secondary to erosive esophagitis-PPI, Carafate
# Hyperlipidemia-continue atorvastatin, fenofibrate
# Hypothyroidism-Synthroid 137 mcg daily, metformin 1000 mg p.o. twice daily
# Diverticulosis
# Advanced dementia with behavioral disturbances-on Depakote to 50 mg every 12, Remeron 15 mg at bedtime, Zyprexa 15 mg at bedtime
# DNR/DNI
# DVT prophylaxis�heparin
Discussed with infectious disease
Original Note:
Today's Communication/Plan
-
Patient still at baseline mentation, continue goals of care discussion
Assessment / Plan
Assessment / Plan
1. #Septic shock
-resolved, patient afebrile, blood pressures within normal limits
-Chest x-ray did not show any clear signs of pneumonia
-blood culture neg, 1 set ordered
-Foot x-ray did not show any overt osteomyelitis
-Required small dose of Levophed, off of it now
-Source is still unclear, podiatry consulted for nonhealing wounds on feet and potential subcutaneous emphysema seen on x-ray
#Enterococcal urinary tract infection
-Urinalysis shows 11-15 WBC, +1 leukocyte esterase
-Urine culture growing Enterococcus species
-Has received empiric Unasyn 3 g IV every 6 hours, day 3, will continue
-Status post 2 days of ceftriaxone
2. TME - Improved
Dementia with behavioral problems
Dysphagia
-Speech therapy cleared patient for pills and crushed applesauce if needed.
-patient awake and morning episodically, not answering any questions -Per family this is baseline.
-Discussion Tuesday and patient family interested in PEG tube if needed. Discussed poor prognosis although patient family remains hopeful that patient will improve as she has done this in the past. Patient truly qualifies for hospice with end-stage
dementia/failure to thrive/multiple decubitus wound.
3. Acute hypernatremia -resolved
-Secondary to volume depletion/decreased oral intake with dementia
-Got D5 water in ICU
-Also got started on tube feed with free water flushes
-Follow-up sodium level improved
4. Multiple pressure injuries
-Diffuse multiple pressure injury of stage I and II over both heel/buttocks
-Buttocks wound is a stage I pressure ulcer
-wound care evaluated
-Podiatry consulted
5. Left eye conjunctivitis
-Some crusting visible
-Eyedrops prn
6. Acute kidney injury prerenal
-resolved with IVF
7. Paroxysmal atrial fibrillation with RVR
-Patient have Dobbhoff tube placed and able to be getting carvedilol and diltiazem through tube
-Not on anticoagulation with increased fall risk and advanced age likely
8. NIDDM
- maintain on ISS and 5U q6 insulin with lantus 13U HS
-will increase lantus/standing novolog dose if needed
History of V-fib/torsades status post ICD
Coronary artery disease
Presumed diastolic HF - EF 60% in February 15
History of CVA
Essential hypertension
GERD
History of upper GI bleeding secondary to erosive esophagitis
Hypercholesterolemia
Hypothyroidism
Advanced dementia with behavioral disturbances
DNR/DNI
DVT prophylaxis�heparin
Anticipated Discharge: > 48 hours
Subjective/Interval History
-
Date of Service: April 09, 2024
Patient remains awake and periodically moans, does not respond to voice
No acute events overnight, afebrile
Objective Data
-
Labs:
Laboratory Results
04/09/24
08:38
WBC Pending
Hgb Pending
Hct Pending
Plt Count Pending
Sodium Pending
Potassium Pending
Chloride Pending
Carbon Dioxide Pending
BUN Pending
Creatinine Pending
Glucose Pending
Calcium Pending
Vital Signs:
Vital Signs
Temp Pulse Resp BP Pulse Ox
97.4 F 94 16 120/69 98
04/09/24 07:35 04/09/24 08:41 04/09/24 07:35 04/09/24 08:41 04/09/24 07:35
I&O
04/08/24 04/09/24 04/10/24
06:59 06:59 06:59
Intake Total 2114 840 / 840
Balance 2114 840 / 840
Review of Systems
-
Unable to obtain full review of systems at this time due to: Dementia and Patient Non-verbal
Physical Exam
-
General: Appears in Distress, Pain and Other (Severe advanced dementia, nonverbal)
Respiratory: Clear to Auscultation
Cardiac: Regular Rhythm and S1/S2
GI: Soft, Nondistended, Normal Bowel Sounds and Other (Patient currently on NG tube)
Skin: Warm and Dry
Neuro: Other (AAO x 0); Negative Awake, Alert, Oriented or AO x 3
Psych: Confused and Apparent Dementia; Negative Intact Judgement/Insight
Data Reviewed
-
Diagnostic Radiology: Report Reviewed by me and Discussed with Physician
CT Scan: Report Reviewed by me and Discussed with Physician
Labs: Labs Reviewed by me and Discussed with Physician
--- NOTE | 2024-04-09 10:10 | PTOTSP ---
Speech Language Pathology
VIDEOFLUOROSCOPIC SWALLOWING EXAMINATION (VSE) completed. Overall, pt with mild-mod oral and mod pharyngeal dysphagia. Pt with consistent penetration, which frequently descended to level of vocal folds. She was unable to follow directions to
cough or clear throat. No actual aspiration visualized during study, but pt is at high risk for aspiration. Cough noted x1 when fluoro turned off, unable to determine if this cough was in response to aspiration. Pt stated multiple times during
study 'I want to eat.'
Recommend:
(1) NPO and GOC discussions
(2) Oral care 4x/day with suctioning as needed
(3) If diet to be decided on by family, IDDSI Level 4 (Puree) and Thin Liquids via single sips would be best, although aspiration likely to occur
(4) Will initiate Aspiration Risk Hydration Protocol (ice chips during day post oral care given supervision) in case pt remains NPO post family discussion
(5) DIAMOND EXPERT to continue to follow
[2024-04-09 10:14] LABS: Blood Urea Nitrogen 21 mg/dl (7-17); Calcium 9.1 mg/dl (8.4-10.2); Carbon Dioxide 26 mmol/L (22-30); Chloride 108 mmol/L (98-107); Estimated Creatinine Clearance 52 ml/min; Glucose 164 mg/dl (70-99); Potassium 3.9 mmol/L (3.5-5.1); Sodium 140 mmol/L (135-145); eGFR > 60.00
[2024-04-09 11:58] LABS: Glucose - Point of Care 180 mg/dl (70-99)
[2024-04-09] MEDS: NOVOLOG FLEXPEN-HIGH RESISTANCE 2 UNITS SC (12:01)
[2024-04-09 12:47] LABS: % Basophils 0.8 % (0-2); % Eosinophils 2.9 % (0-6); % Immature Granulocytes 2.4 % (0-0.5); % Lymphocytes 22.8 % (20.5-51.1); % Monocytes 8.8 % (1.7-9.3); % Neutrophils 62.3 % (42.2-75.2); Absolute Basophils 0.1 10^3/uL (0-0.2); Absolute Eosinophils 0.2 10^3/uL (0-0.7); Absolute Immature Granulocytes 0.2 10^3/uL (0-0.05); Absolute Lymphocytes 1.6 10^3/uL (1.2-3.4); Absolute Monocytes 0.6 10^3/uL (0.1-0.6); Absolute Neutrophils 4.5 10^3/uL (1.4-6.5); Hematocrit 30.6 % (37.0-47.0); Hemoglobin 9.7 g/dL (12.0-16.0); Mean Corp Hgb Conc. 31.7 g/dL (33.0-37.0); Mean Corpuscular Hgb 24.4 pg (27.0-31.0); Mean Corpuscular Volume 77.1 fL (81.0-99.0); Nucleated Red Blood Cells % 0 %; Red Blood Cell Count 3.97 10^6/uL (4.20-5.40); Red Cell Dist. Width 20.8 % (11.5-14.5); White Blood Cell Count 7.2 10^3/uL (4.8-10.8)
[2024-04-09 15:29] VITALS: BP 122/73
--- NOTE | 2024-04-09 16:00 | CON.ID ---
Documented by User: Kinsey Dai MD, Resident 04/09/24 17:39
Consultation
-
Date/Time Consultation Requested: 04/09/2024, 7:41
Date/Time Consultation Performed: 04/09/2024, 15:45
Requesting Provider: Dr. Cat Frances
Performing Provider: Dr. Merritt Segovia
Chief Complaint / Past History
History of Present Illness
Ms. Tessa Duarte is a 79-year-old female being evaluated at the request of Dr. Cat Frances, in regards to sepsis. History is obtained from chart review, review of old records contained in the hospital EMR system and information from patient's
at bedside.
Ms. Duarte with past medical history significant for advanced dementia/Parkinson's, chronic foot wound, right lower extremity peripheral vascular disease s/p balloon angioplasty (09/30/2023), CVA was brought to the ER by the senior living staff from
[facility] after the patient appeared confused/ somnolent, had decreased oral intake and fevers. In the ER patient had leukocytosis, was hypotensive, tachycardic, elevated lactate 5.1, U/A�evidence of UTI. She was started on Unasyn. Patient
was admitted to ICU for pressor requirements, was on a small dose of Levophed for a short while. Blood culture is negative to date, urine culture�Enterococcus faecalis.
Past History
Past Medical History: Arrhythmias, HTN, Hypercholesterolemia, IDDM, PAD and Other (Anemia, cardiomyopathy, esophagitis with bleeding, duodenal ulcer, dementia, Parkinson's, heart failure, TIA, GERD, depression)
Past Surgical History: Other (Right AT, PT balloon angioplasty 09/30/2023)
Allergy History:
Penicillins Adverse Reaction (Verified 02/22/23 16:42)
Nausea
Social History
Tobacco: Non-Smoker
Alcohol: None
Drug: None
Personal:
Living: Longterm ([facility])
Family History
Family History: Not Pertinent
Review of Systems
Review of Systems
As per HPI
Vital Signs
Temp Pulse Resp BP Pulse Ox
97.5 F 94 16 131/64 97
04/09/24 15:29 04/09/24 15:48 04/09/24 15:29 04/09/24 15:48 04/09/24 15:29
Physical Exam
Physical Exam
Constitutional: Chronically Ill and Other
Head: Normocephalic
Cardiovascular: S1/S2 and Other (Irregular rhythm)
Pulmonary: Clear (Clear to auscultation bilaterally, nonlabored respirations)
Gastrointestinal: Soft, Non Tender, Non Distended, Normal Bowel Sounds and Other (Dobbhoff tube in place)
Extremities: Other (Left foot wound on the medial aspect with eschar.)
Skin: Warm, Dry and Other (Right medial foot wound, left medial toe wound-with black eschar, sacral wound)
Neurological: Awake and Other (Patient appears confused, moaning, does not verbally respond.)
Psychological: Confused
Lab / Diagnostic Study Results
04/09/24 08:38
04/09/24 08:38
Abs Immat Gran (auto) 0.2 10^3/uL (0-0.05) H 04/09/24 08:38
Absolute Neuts (auto) 4.5 10^3/uL (1.4-6.5) 04/09/24 08:38
Absolute Lymphs (auto) 1.6 10^3/uL (1.2-3.4) 04/09/24 08:38
Absolute Monos (auto) 0.6 10^3/uL (0.1-0.6) 04/09/24 08:38
Absolute Basos (auto) 0.1 10^3/uL (0-0.2) 04/09/24 08:38
Immature Gran % 2.4 % (0-0.5) H 04/09/24 08:38
Neutrophils % 62.3 % (42.2-75.2) 04/09/24 08:38
Lymphocytes % 22.8 % (20.5-51.1) 04/09/24 08:38
Monocytes % 8.8 % (1.7-9.3) 04/09/24 08:38
Eosinophils % 2.9 % (0-6) 04/09/24 08:38
Basophils % 0.8 % (0-2) 04/09/24 08:38
PT 15.8 Sec (11.4-14.6) H 04/06/24 03:10
INR 1.25 04/06/24 03:10
Lactic Acid Cancelled 04/05/24 00:42
Microbiology Results
Micro:
04/04/24 15:27 Blood Culture - Final
Blood/Venous No Growth - Final Report
04/04/24 15:27 Urine Culture - Final
Urine Enterococcus faecalis
04/05/24 00:21 MRSA Screen - Final
Nose No Methicillin Resistant Staphylococcus aureus isolated.
Imaging
CT Scan: AP 04/04/24- No acute pathology of the abdomen or pelvis identified. Incidental possible left adrenal mass versus more likely gastric diverticulum versus less likely exophytic left renal mass. This should further be evaluated by a nonurgent
repeat CT examination of the abdomen with oral and IV contrast. Moderate fecal material throughout the colon.
Chest X-Ray: 04/04/24- No acute disease of the chest
Assessment / Plan
Impression
Clinical sepsis
�resolved
UTI
Toxic metabolic encephalopathy/delirium/confusion
Multiple pressure injuries
Acute hypernatremia
NIDDM
Other conditions
Coronary artery disease
Presumed diastolic HF - EF 60% in February 15
History of CVA
Essential hypertension
GERD
History of upper GI bleeding secondary to erosive esophagitis
Hypercholesterolemia
Hypothyroidism
Advanced dementia
Recommendations
-Patient is at her baseline mental status, afebrile, leukocytosis improved
�Patient is off of pressors
�Blood culture NGTD
-Urine culture�Enterococcus faecalis
-She is on Unasyn, day 4.
� Transition to amoxicillin 500 mg, suspension, twice daily for 3 days.

Documented by User: Merritt Segovia DO 04/09/24 17:39
Care Review
Plan reviewed with: Physician (Hospitalist)
--- NOTE | 2024-04-09 17:09 | CM ---
Case management following for d/c planning
Reviewed chart
Speech following
Possible PEG
From [facility] - LTC - updates sent in care port
Plan - anticipate return to [facility] when medically stable
[2024-04-09 17:44] LABS: Glucose - Point of Care 149 mg/dl (70-99)
[2024-04-09] MEDS: NOVOLOG FLEXPEN-HIGH RESISTANCE 1 UNITS SC (17:45)
[2024-04-09] MEDS: GLUCOPHAGE 1000 MG TUBE (17:45)
[2024-04-09] MEDS: REMERON 15 MG TUBE (21:57)
[2024-04-09] MEDS: TRIMOX/AMOXIL 500 MG TUBE (21:57)
[2024-04-09] MEDS: ZYPREXA 10 MG TUBE (21:57)
[2024-04-09 23:04] LABS: Glucose - Point of Care 99 mg/dl (70-99)
[2024-04-09 23:06] VITALS: BP 127/66
[2024-04-09] MEDS: LANTUS SC (23:16)
[2024-04-10] MEDS: NOVOLOG FLEXPEN-HIGH RESISTANCE SC ×2 (00:05→13:35)
[2024-04-10] MEDS: NOVOLOG FLEXPEN SC ×3 (02:22→13:34)
[2024-04-10 02:23] LABS: Glucose - Point of Care 135 mg/dl (70-99)
[2024-04-10] MEDS: CARDIZEM 30 MG TUBE ×5 (03:17→21:50)
[2024-04-10 06:00] VITALS: BMI 20.3
[2024-04-10 06:05] LABS: Glucose - Point of Care 140 mg/dl (70-99)
[2024-04-10] MEDS: NOVOLOG FLEXPEN-HIGH RESISTANCE 1 UNITS SC (06:13)
[2024-04-10] MEDS: SYNTHROID 137 MCG TUBE (06:14)
[2024-04-10 06:20] LABS: % Basophils 0.6 % (0-2); % Eosinophils 3.1 % (0-6); % Immature Granulocytes 2.5 % (0-0.5); % Monocytes 10.7 % (1.7-9.3); % Neutrophils 58.1 % (42.2-75.2); Absolute Basophils 0.1 10^3/uL (0-0.2); Absolute Eosinophils 0.3 10^3/uL (0-0.7); Absolute Immature Granulocytes 0.3 10^3/uL (0-0.05); Absolute Lymphocytes 2.5 10^3/uL (1.2-3.4); Absolute Monocytes 1.1 10^3/uL (0.1-0.6); Absolute Neutrophils 5.9 10^3/uL (1.4-6.5); Hematocrit 32.2 % (37.0-47.0); Hemoglobin 10.2 g/dL (12.0-16.0); Mean Corp Hgb Conc. 31.7 g/dL (33.0-37.0); Mean Corpuscular Hgb 24.7 pg (27.0-31.0); Nucleated Red Blood Cells % 0.2 %; Red Blood Cell Count 4.13 10^6/uL (4.20-5.40); Red Cell Dist. Width 21.1 % (11.5-14.5); White Blood Cell Count 10.1 10^3/uL (4.8-10.8)
[2024-04-10 06:46] LABS: Blood Urea Nitrogen 22 mg/dl (7-17); Calcium 9.2 mg/dl (8.4-10.2); Carbon Dioxide 29 mmol/L (22-30); Chloride 108 mmol/L (98-107); Estimated Creatinine Clearance 56 ml/min; Glucose 118 mg/dl (70-99); Potassium 4.2 mmol/L (3.5-5.1); Sodium 140 mmol/L (135-145); eGFR > 60.00
[2024-04-10 07:11] LABS: Platelet Count 271 10^3/uL (130-400)
[2024-04-10 07:30] VITALS: BP 122/68
[2024-04-10 07:37] LABS: Glucose - Point of Care 108 mg/dl (70-99)
--- NOTE | 2024-04-10 09:02 | W.PN.HOSP.TC ---
Addendum entered and electronically signed by Cat Frances MD 04/10/24 13:38:
I personally performed a history and physical exam of the patient and discussed management with the resident. I reviewed the resident's note and agree with the documented findings and plan of care HPI/CC.
Patient was awake not oriented
Exam unchanged from yesterday
Continue amoxicillin
Had a detailed discussion with the patient's son today regarding goals of care. Patient's to be here today and let us know their decision without they want a PEG tube or hospice.
Patient states that she is hungry due to speech therapist. I discussed with son that this needs to be taken to consideration if they were considering a PEG tube.
Hold doff MRI till family decision made
CT head n acute changes
Original Note:
Today's Communication/Plan
-
Continue goals of care discussion with family, MRI not possible due to patient's mentation and ICD
Assessment / Plan
Assessment / Plan
1. #Septic shock
-resolved, patient afebrile, blood pressures within normal limits
-Chest x-ray did not show any clear signs of pneumonia
-blood culture neg, 1 set ordered
-Foot x-ray did not show any overt osteomyelitis
-Required small dose of Levophed, off of it now
-Source is still unclear, podiatry consulted for nonhealing wounds on feet and potential subcutaneous emphysema seen on x-ray
#Enterococcal urinary tract infection
-Urinalysis shows 11-15 WBC, +1 leukocyte esterase
-Urine culture growing Enterococcus species
-Has received empiric Unasyn 3 g IV every 6 hours, day 4
-Status post 2 days of ceftriaxone
-Infectious disease started patient on oral amoxicillin, day 1
2. TME
Dementia with behavioral problems
Dysphagia
-Speech therapy cleared patient for pills and crushed applesauce if needed.
-patient awake and morning episodically, not answering any questions -Per family this is baseline.
-Discussion Tuesday and patient family interested in PEG tube if needed. Discussed poor prognosis although patient family remains hopeful that patient will improve as she has done this in the past. Patient truly qualifies for hospice with end-stage
dementia/failure to thrive/multiple decubitus wound.
-Dr. Frances will continue the goals of care discussion with family, as well as recommendations regarding potential osteomyelitis workup
-Patient was not a candidate for MRI due to her mentation status and ICD placement, MRI could not scan her
3. Acute hypernatremia -resolved
-Secondary to volume depletion/decreased oral intake with dementia
-Got D5 water in ICU
-Also got started on tube feed with free water flushes
-Follow-up sodium level improved
4. Multiple pressure injuries
-Diffuse multiple pressure injury of stage I and II over both heel/buttocks
-Buttocks wound is a stage I pressure ulcer
-wound care evaluated
-Podiatry consulted
5. Left eye conjunctivitis
-Some crusting visible
-Eyedrops prn
6. Acute kidney injury prerenal
-resolved with IVF
7. Paroxysmal atrial fibrillation with RVR
-Patient have Dobbhoff tube placed and able to be getting carvedilol and diltiazem through tube
-Not on anticoagulation with increased fall risk and advanced age likely
8. NIDDM
-Regimen changed to low resistance ISS and 3U q6 insulin with lantus 15U HS
-will increase lantus/standing novolog dose if needed
History of V-fib/torsades status post ICD
Coronary artery disease
Presumed diastolic HF - EF 60% in February 15
History of CVA
Essential hypertension
GERD
History of upper GI bleeding secondary to erosive esophagitis
Hypercholesterolemia
Hypothyroidism
Advanced dementia with behavioral disturbances
N.p.o.
DNR/DNI
DVT prophylaxis�heparin
Anticipated Discharge: > 48 hours
Subjective/Interval History
-
Date of Service: April 10, 2024
No acute events overnight, mentation has not changed
Objective Data
-
Labs:
Laboratory Results
04/10/24
05:43
WBC 10.1
Hgb 10.2 L
Hct 32.2 L
Plt Count 271
Sodium 140
Potassium 4.2
Chloride 108 H
Carbon Dioxide 29
BUN 22 H
Creatinine 0.6
Glucose 118 H
Calcium 9.2
Vital Signs:
Vital Signs
Temp Pulse Resp BP Pulse Ox
97.2 F 99 20 122/68 97
04/10/24 07:30 04/10/24 07:30 04/10/24 07:30 04/10/24 07:30 04/10/24 07:30
I&O
04/09/24 04/10/24 04/11/24
06:59 06:59 06:59
Intake Total 840 / 840
Balance 840 / 840
Review of Systems
-
Unable to obtain full review of systems at this time due to: Dementia and Patient Non-verbal
Physical Exam
-
General: Appears in Distress and Appears Chronically Ill
Cardiac: Regular Rhythm and S1/S2
Skin: Warm, Dry, Lesions, Decubitus Ulcers and Other (Strong pedal pulses bilaterally, skin warm)
Neuro: Other (Nonverbal severe advanced dementia); Negative Awake, Alert, Oriented or AO x 3
Psych: Apparent Dementia; Negative Intact Judgement/Insight
Data Reviewed
-
Labs: Labs Reviewed by me and Discussed with Physician
[2024-04-10] MEDS: FEOSOL 325 MG TUBE (09:04)
[2024-04-10] MEDS: COREG 6.25 MG TUBE ×2 (09:04→21:51)
[2024-04-10] MEDS: LIPITOR 40 MG TUBE (09:05)
[2024-04-10] MEDS: GLUCOPHAGE 1000 MG TUBE ×2 (09:06→16:52)
[2024-04-10] MEDS: DEPAKENE 250 MG TUBE ×2 (09:07→21:50)
[2024-04-10] MEDS: HEPARIN 5000 UNITS SC ×2 (09:08→21:51)
[2024-04-10] MEDS: TRIMOX/AMOXIL 500 MG TUBE ×3 (09:08→21:52)
--- NOTE | 2024-04-10 09:34 | W.PN.UPDATE ---
Update Note
Progress Note Update
Detailed discussion with patient's son on the phone regarding dysphagia. Also discussed about options.
Quality of life, PEG tube, hospice all discussed with him.
Son wants to talk to his father who will be the final decision maker.
We discussed that we can involve GI once they make a decision to see if she is a candidate.
I also discussed with him about needing testing/biopsy for the foot.
Will hold off until family medical decision with aggressive care versus hospice.
I have ordered a CT of the head as she did not have 1 on admission with mental status change and dysphagia.
--- NOTE | 2024-04-10 09:50 | PTOTSP ---
Speech Language Pathology
Pt seen for dysphagia tx. Sleeping upon arrival. Sat upright in bed with eyes opening in response. Vocalizations were mostly moans, but did state 'I'm hungry' x2. Answered 'no' to all questions. Yes/no responses are not accurate.
Trialed single sips of thin liquid via straw in addition to ice chips. Audible, incoordinated swallow noted with thin liquids. Suspect penetration based on results of VSE where consistent penetration noted with descended to vocal folds. Pt
continues to be unable to throat clear/cough to command. Pt at high risk for aspiration given mentation, decreased alertness, and known dysphagia. Plan for HCT this date.
Recommend:
(1) NPO and continued GOC discussions
(2) Oral care 4x/day with suctioning as needed
(3) If diet to be decided on by family, IDDSI Level 4 (Puree) and Thin Liquids via single sips would be best, although aspiration likely to occur
(4) Will initiate Aspiration Risk Hydration Protocol (ice chips during day post oral care given supervision) in case pt remains NPO post family discussion
(5) DUPLEX TRIMMER to continue to follow
[2024-04-10 11:56] LABS: Glucose - Point of Care 166 mg/dl (70-99)
[2024-04-10] MEDS: NSS (PRESERVATIVE FREE) 10 ML IV ×2 (13:11→21:52)
[2024-04-10] MEDS: PROTONIX IV 40 MG IV ×2 (13:12→21:52)
[2024-04-10] MEDS: NOVOLOG FLEXPEN-LOW RESISTANCE 1 UNITS SC (13:38)
[2024-04-10] MEDS: NOVOLOG FLEXPEN 3 UNITS SC ×2 (13:39→18:04)
--- NOTE | 2024-04-10 13:40 | CON.MD ---
Consultation - Medical
-
Podiatry consult for 79 year old female regarding sepsis and left foot wound. Patient's son present during exam. She was sent from nursing facility with fever and change in mental status. PMH significant for dementia and Parkinson's disease with
right PAD status post angioplasty 09/2023, HTN, Diabetes mellitus, CHF, TIA. Patient is non verbal and lying in bed in a position.
Pedal pulses palpable left DP, diminished right DP with absent PT bilaterally. Feet are warm to touch, skin pale, wound padding in place to right arch and bilateral heels. No cellulitis present and no edema. Left first MTPJ with 1.25 cm circular
ulceration stable edges with normal color but well circumscribed homogenous necrosis at center. No drainage present and area of hallux distal to the ulcer with no sign of infection.
Urine culture shows E. Faecalis, negative blood cultures to date, radiographs show contracture with dislocation at the Hallux IP joint and soft tissue emphysema at the proximal phalanx, currently afebrile
Impression/Plan
-Noted in chart that patient is currently at baseline mental status and afebrile with improved leukocytosis
-Ulcer appears to be arterial with dry center. Likely due to local pressure and compromised distal perfusion. Very unlikely to be the source of bacterial infection as she is not mounting a local response, therefore bone biopsy is not warranted. I
do not think radiographic finding of emphysema is clinically significant. Suggest continuation of local wound care. Evaluation by vascular surgery is suggested to assess distal perfusion due to appearance of left ulcer and history of right LE
vascular intervention.
[2024-04-10 15:00] VITALS: BP 111/61
--- NOTE | 2024-04-10 17:17 | W.PN.ID1 ---
Date of Service
Date of Service: April 10, 2024
Today's Communication
Continue amoxicillin. Await further discussions re: goals of care with family.
Assessment / Plan
Clinical sepsis
�resolved
UTI / pyuria / bactieuria
Toxic metabolic encephalopathy/delirium/confusion
Multiple pressure injuries
Left first met head ulceration
Other conditions
Coronary artery disease
Presumed diastolic HF - EF 60% in February 15
History of CVA
Essential hypertension
GERD
History of upper GI bleeding secondary to erosive esophagitis
Hypercholesterolemia
Hypothyroidism
Advanced dementia
Recommendations
Continue amoxcillin for an additional 2 days.
Local care to the left hallux ulceration. At present, it is not clear whether there is underlying osteomyelitis (no erosion on plain film), although given overarching comorbidities of the patient, workup likely not warranted at this juncture.
If further workup were to be requested by family, follow-up x-rays and/or MRI to determine whether osteomyelitis is present would be the next step. If osteomyelitis seen on imaging, a bone biopsy while off of antibiotics would be necessary.
Chief Complaint
-: Other (Left foot ulceration)
Subjective / Review of Systems
Review of Systems: No Fever
Vital Signs / Physical Exam
Vital Signs
Vital Signs
Temp Pulse Resp BP Pulse Ox
97.3 F 107 18 111/61 98
04/10/24 15:00 04/10/24 15:00 04/10/24 15:00 04/10/24 15:00 04/10/24 15:00
Physical Exam
Constitutional: No Acute Distress, Chronically Ill and Non-toxic
Eyes: Sclera Anicteric
Cardiovascular: S1/S2; Negative S3/S4
Pulmonary: Non Labored
Gastrointestinal: Non Distended
Wound: Other (left foot ulceration dry)
Psychological: Calm and Confused
Objective Data
Lab Data
Lab Results
04/10/24 05:43
04/10/24 05:43
PT 15.8 Sec (11.4-14.6) H 04/06/24 03:10
INR 1.25 04/06/24 03:10
APTT 40.3 Sec (23.4-35.0) H 04/04/24 19:05
Estimated Creat Clear 56 ml/min 04/10/24 05:43
Lactic Acid Cancelled 04/05/24 00:42
Total Bilirubin 0.6 mg/dl (0.2-1.3) 04/05/24 03:48
AST 20 U/L (14-36) 04/05/24 03:48
ALT 15 U/L (0-35) 04/05/24 03:48
Alkaline Phosphatase 65 U/L (38-126) 04/05/24 03:48
Most recent labs reviewed.
Micro Results:
04/04/24 15:27 Blood Culture - Final
Blood/Venous No Growth - Final Report
04/04/24 15:27 Urine Culture - Final
Urine Enterococcus faecalis
04/05/24 00:21 MRSA Screen - Final
Nose No Methicillin Resistant Staphylococcus aureus isolated.
Imaging
CT Scan: AP 04/04/24- No acute pathology of the abdomen or pelvis identified. Incidental possible left adrenal mass versus more likely gastric diverticulum versus less likely exophytic left renal mass. This should further be evaluated by a nonurgent
repeat CT examination of the abdomen with oral and IV contrast. Moderate fecal material throughout the colon.
Chest X-Ray: 04/04/24- No acute disease of the chest
11/17/23 ABIs: Left VANI on calculable; left TBI 0.42 Left toe brachial index measures 0.42. Infrapopliteal disease is suspected based on spectral Doppler waveform analysis. No Doppler signal could be located in the distribution of the left
posterior tibial artery. Please see full dictation for additional detail.
[2024-04-10 17:59] LABS: Glucose - Point of Care 228 mg/dl (70-99)
[2024-04-10] MEDS: NOVOLOG FLEXPEN-LOW RESISTANCE 2 UNITS SC (18:05)
[2024-04-10] MEDS: ZYPREXA 10 MG TUBE (21:50)
[2024-04-10] MEDS: REMERON 15 MG TUBE (21:51)
[2024-04-10 22:20] LABS: Glucose - Point of Care 144 mg/dl (70-99)
[2024-04-10] MEDS: LANTUS 0.15 UNITS SC (22:20)
[2024-04-10 23:55] VITALS: BP 137/75
[2024-04-11 00:02] LABS: Glucose - Point of Care 185 mg/dl (70-99)
[2024-04-11] MEDS: CARDIZEM 30 MG TUBE ×6 (00:30→19:55)
[2024-04-11] MEDS: TYLENOL 650 MG PO (00:30)
[2024-04-11] MEDS: NOVOLOG FLEXPEN-LOW RESISTANCE 1 UNITS SC ×3 (00:37→18:30)
[2024-04-11] MEDS: NOVOLOG FLEXPEN 3 UNITS SC ×4 (00:38→18:30)
[2024-04-11 05:58] LABS: Glucose - Point of Care 119 mg/dl (70-99)
[2024-04-11] MEDS: SYNTHROID 137 MCG TUBE (06:02)
[2024-04-11] MEDS: NOVOLOG FLEXPEN-LOW RESISTANCE SC (06:04)
--- NOTE | 2024-04-11 06:15 | DOWNTIME ---
There was a [employer]ution Leader Downtime on 04/11/2024 from 0100 to 04/11/2024 at 0255. Downtime documentation of patient's care, including medication administrations, has been reconciled in the electronic record per guidelines. Refer to the
patient's paper chart under the miscellaneous tab to see printed paper medication records and downtime forms.
[2024-04-11 06:37] LABS: % Basophils 0.7 % (0-2); % Eosinophils 2.6 % (0-6); % Lymphocytes 36.4 % (20.5-51.1); % Monocytes 8.9 % (1.7-9.3); % Neutrophils 48.4 % (42.2-75.2); Absolute Basophils 0.1 10^3/uL (0-0.2); Absolute Eosinophils 0.2 10^3/uL (0-0.7); Absolute Immature Granulocytes 0.3 10^3/uL (0-0.05); Absolute Monocytes 0.7 10^3/uL (0.1-0.6); Hemoglobin 9.1 g/dL (12.0-16.0); Mean Corp Hgb Conc. 31.4 g/dL (33.0-37.0); Mean Corpuscular Hgb 23.8 pg (27.0-31.0); Mean Corpuscular Volume 75.7 fL (81.0-99.0); Nucleated Red Blood Cells % 0.2 %; Red Blood Cell Count 3.83 10^6/uL (4.20-5.40); Red Cell Dist. Width 21.1 % (11.5-14.5); White Blood Cell Count 8.3 10^3/uL (4.8-10.8)
[2024-04-11 06:52] LABS: Platelet Count 242 10^3/uL (130-400)
[2024-04-11 06:54] LABS: Blood Urea Nitrogen 21 mg/dl (7-17); Calcium 9.5 mg/dl (8.4-10.2); Carbon Dioxide 24 mmol/L (22-30); Chloride 110 mmol/L (98-107); Estimated Creatinine Clearance 56 ml/min; Glucose 108 mg/dl (70-99); Potassium 4.2 mmol/L (3.5-5.1); Sodium 140 mmol/L (135-145); eGFR > 60.00
[2024-04-11 07:00] VITALS: BP 101/61
[2024-04-11] MEDS: GLUCOPHAGE 1000 MG TUBE ×2 (08:53→18:29)
[2024-04-11] MEDS: PROTONIX IV 40 MG IV ×2 (08:54→19:56)
[2024-04-11] MEDS: NSS (PRESERVATIVE FREE) 10 ML IV ×2 (08:55→19:56)
[2024-04-11] MEDS: COREG 6.25 MG TUBE ×2 (08:55→19:55)
[2024-04-11] MEDS: DEPAKENE 250 MG TUBE ×2 (08:56→19:55)
[2024-04-11] MEDS: HEPARIN 5000 UNITS SC ×2 (08:57→19:56)
[2024-04-11] MEDS: LIPITOR 40 MG TUBE (08:57)
[2024-04-11] MEDS: FEOSOL 325 MG TUBE (08:57)
[2024-04-11] MEDS: TRIMOX/AMOXIL 500 MG TUBE ×3 (09:00→23:02)
--- NOTE | 2024-04-11 09:05 | W.PN.HOSP.TC ---
Addendum entered and electronically signed by Cat Frances MD 04/11/24 15:07:
I personally performed a history and physical exam of the patient and discussed management with the resident. I reviewed the resident's note and agree with the documented findings and plan of care HPI/CC.
Abdomen: Soft, NT
Extremities:LUE edema
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
PI on the medial foot with redness
# Septic shock
Source enterococcal UTI
1 set of blood cultures negative
Foot h-ngs-[id number] changes.
Multiple decubitus ulcers potentially could be source
ID evaluation
Off Levophed
Currently on Unasyn
# Lactic acidosis-Resolved
# TME improved
# Dysphagia-video swallow evaluation
Speech following
Previous attending's discussion family would be interested in PEG tube
# Hypernatremia
Likely secondary to volume depletion
Free water replacement
# Multiple pressure injuries
# VIKTORIA-Resolved
# Paroxysmal atrial fibrillation with RVR
Patient have Dobbhoff tube placed and able to be getting carvedilol and diltiazem through tube
Not on anticoagulation with increased fall risk and advanced age likely
# DM
Lantus 13U and NovoLog 3 U and SSI
Lantus to 15 U
Hemoglobin A1c 6.2
Restarted metformin
# Constipation- Resolved
# Anemia-iron sulfate
# Possible left adrenal mass versus more likely gastric diverticulum versus less likely exophytic left renal mass-OP follow up
# Hypoalbuminemia
# History of V-fib/torsades status post ICD
#Coronary artery disease
# Chronic diastolic HF - EF 60% in February 15
# History of CVA-ASA,Statin
# Essential hypertension
# GERD/History of upper GI bleeding secondary to erosive esophagitis-PPI, Carafate
# Hyperlipidemia-continue atorvastatin, fenofibrate
# Hypothyroidism-Synthroid 137 mcg daily, metformin 1000 mg p.o. twice daily
# Diverticulosis
# Advanced dementia with behavioral disturbances-on Depakote to 50 mg every 12, Remeron 15 mg at bedtime, Zyprexa 15 mg at bedtime
# DNR/DNI
# DVT prophylaxis�heparin
Discussed with GI
Discussed with speech
Discussed with patient's son in detail. Family is looking back to whether she is a candidate for PEG tube prior to giving us a decision whether they want it or not. Quality of life, patient wishes to eat, was all discussed.
Time spent over 50 minutes today
Original Note:
Today's Communication/Plan
-
Continue goals of care discussion with family
Assessment / Plan
Assessment / Plan
1. #Septic shock
-resolved, patient afebrile, blood pressures within normal limits
-Chest x-ray did not show any clear signs of pneumonia
-blood culture neg, 1 set ordered
-Foot x-ray did not show any overt osteomyelitis
-Required small dose of Levophed, off of it now
-Source is still unclear, podiatry consulted for nonhealing wounds on feet and potential subcutaneous emphysema seen on x-ray
-Podiatry said that wound is very unlikely source, does not believe that a bone biopsy is warranted as there is no local response
-Patient was not a candidate for MRI due to her mentation status and ICD placement, MRI could not scan her
#Enterococcal urinary tract infection
-Urinalysis shows 11-15 WBC, +1 leukocyte esterase
-Urine culture growing Enterococcus species
-Has received empiric Unasyn 3 g IV every 6 hours, day 4
-Status post 2 days of ceftriaxone
-Infectious disease started patient on oral amoxicillin, day 2
2. TME
Dementia with behavioral problems
Dysphagia
-Speech therapy cleared patient for pills and crushed applesauce if needed.
-patient awake and morning episodically, not answering any questions -Per family this is baseline.
-Discussion Tuesday and patient family interested in PEG tube if needed. Discussed poor prognosis although patient family remains hopeful that patient will improve as she has done this in the past. Patient truly qualifies for hospice with end-stage
dementia/failure to thrive/multiple decubitus wound.
-I was personally present as a bystander during the goals of care discussion, family wants to understand if patient is a candidate for PEG tube before making a decision
-Goals of care discussion will continue with family
-GI explained that even with the PEG tube aspiration risk still remains and it would not improve quality of life due to her advanced dementia
-Speech and swallow evaluated the patient and recommended continuing n.p.o. and furthering goals of care discussions
3. Acute hypernatremia -resolved
-Secondary to volume depletion/decreased oral intake with dementia
-Got D5 water in ICU
-Also got started on tube feed with free water flushes
-Follow-up sodium level improved
4. Multiple pressure injuries
-Diffuse multiple pressure injury of stage I and II over both heel/buttocks
-Buttocks wound is a stage I pressure ulcer
-wound care evaluated
-Podiatry consulted
5. Left eye conjunctivitis
-Some crusting visible
-Eyedrops prn
6. Acute kidney injury prerenal
-resolved with IVF
7. Paroxysmal atrial fibrillation with RVR
-Patient have Dobbhoff tube placed and able to be getting carvedilol and diltiazem through tube
-Not on anticoagulation with increased fall risk and advanced age likely
8. NIDDM
-Regimen changed to low resistance ISS and 3U q6 insulin with lantus 15U HS
-will increase lantus/standing novolog dose if needed
History of V-fib/torsades status post ICD
Coronary artery disease
Presumed diastolic HF - EF 60% in February 15
History of CVA
Essential hypertension
GERD
History of upper GI bleeding secondary to erosive esophagitis
Hypercholesterolemia
Hypothyroidism
Advanced dementia with behavioral disturbances
N.p.o.
DNR/DNI
DVT prophylaxis�heparin
Anticipated Discharge: > 48 hours
Subjective/Interval History
-
Date of Service: April 11, 2024
No acute events overnight
Goals of care discussion ongoing
Objective Data
-
Labs:
Laboratory Results
04/11/24
05:43
WBC 8.3
Hgb 9.1 L
Hct 29.0 L
Plt Count 242
Sodium 140
Potassium 4.2
Chloride 110 H
Carbon Dioxide 24
BUN 21 H
Creatinine 0.5 L
Glucose 108 H
Calcium 9.5
Vital Signs:
Vital Signs
Temp Pulse Resp BP Pulse Ox
97.2 F 83 18 101/61 97
04/11/24 07:00 04/11/24 07:00 04/11/24 07:00 04/11/24 07:00 04/11/24 07:00
I&O
04/10/24 04/11/24 04/12/24
06:59 06:59 06:59
Intake Total 650 / 650
Balance 650 / 650
Review of Systems
-
Unable to obtain full review of systems at this time due to: Dementia and Patient Non-verbal
Physical Exam
-
General: Appears in Distress and Appears Chronically Ill; Negative Conversant
Respiratory: Other (Could not auscultate due to dementia)
Cardiac: Regular Rhythm and S1/S2
GI: Soft and Nondistended
Skin: Warm, Dry and Lesions
Neuro: Negative Awake, Alert, Oriented or AO x 3
Psych: Apparent Dementia; Negative Intact Judgement/Insight
Data Reviewed
-
CT Scan: Report Reviewed by me and Discussed with Physician
Labs: Labs Reviewed by me and Discussed with Physician
[2024-04-11 10:55] VITALS: BMI 20.1
--- NOTE | 2024-04-11 11:35 | W.PN.ID1 ---
Date of Service
Date of Service: April 11, 2024
Today's Communication
Continue abx.
Assessment / Plan
Clinical sepsis
�resolved
UTI / pyuria / bactieuria
Toxic metabolic encephalopathy/delirium/confusion
Multiple pressure injuries
Left first met head ulceration
Other conditions
Coronary artery disease
Presumed diastolic HF - EF 60% in February 15
History of CVA
Essential hypertension
GERD
History of upper GI bleeding secondary to erosive esophagitis
Hypercholesterolemia
Hypothyroidism
Advanced dementia
Recommendations
Continue amoxcillin for an additional day.
Local care to the left hallux ulceration. At present, it is not clear whether there is underlying osteomyelitis (no erosion on plain film), although given overarching comorbidities of the patient, workup likely not warranted at this juncture.
Goals of care discussion ongoing with family. Clinically, patient appears palliative care/hospice appropriate, as doubt there is any significant improvement to quality of life that could be anticipated.
����������������������������������������������������������
Chief Complaint
-: Other (Left foot ulceration)
Subjective / Review of Systems
Patient seen and examined. No significant changes overnight.
Review of Systems: No Fever and No Chills
Vital Signs / Physical Exam
Vital Signs
Vital Signs
Temp Pulse Resp BP Pulse Ox
97.2 F 83 18 101/61 97
04/11/24 07:00 04/11/24 07:00 04/11/24 07:00 04/11/24 07:00 04/11/24 08:18
Physical Exam
Constitutional: No Acute Distress, Comfortable and Chronically Ill
Head: Other (Nasal Dobbhoff in place.)
Cardiovascular: S1/S2; Negative S3/S4
Pulmonary: Non Labored
Extremities: Negative Edema or Cyanosis
Wound: Other (Left medial first met head dry ulceration (unstageable). No periwound erythema.)
Neurological: Other (Responsive to touch.)
Objective Data
Lab Data
Lab Results
04/11/24 05:43
04/11/24 05:43
PT 15.8 Sec (11.4-14.6) H 04/06/24 03:10
INR 1.25 04/06/24 03:10
APTT 40.3 Sec (23.4-35.0) H 04/04/24 19:05
Estimated Creat Clear 56 ml/min 04/11/24 05:43
Lactic Acid Cancelled 04/05/24 00:42
Total Bilirubin 0.6 mg/dl (0.2-1.3) 04/05/24 03:48
AST 20 U/L (14-36) 04/05/24 03:48
ALT 15 U/L (0-35) 04/05/24 03:48
Alkaline Phosphatase 65 U/L (38-126) 04/05/24 03:48
Most recent labs reviewed.
Micro Results:
04/04/24 15:27 Blood Culture - Final
Blood/Venous No Growth - Final Report
04/04/24 15:27 Urine Culture - Final
Urine Enterococcus faecalis
04/05/24 00:21 MRSA Screen - Final
Nose No Methicillin Resistant Staphylococcus aureus isolated.
Imaging
CT Scan: AP 04/04/24- No acute pathology of the abdomen or pelvis identified. Incidental possible left adrenal mass versus more likely gastric diverticulum versus less likely exophytic left renal mass. This should further be evaluated by a nonurgent
repeat CT examination of the abdomen with oral and IV contrast. Moderate fecal material throughout the colon.
Chest X-Ray: 04/04/24- No acute disease of the chest
11/17/23 ABIs: Left VANI on calculable; left TBI 0.42 Left toe brachial index measures 0.42. Infrapopliteal disease is suspected based on spectral Doppler waveform analysis. No Doppler signal could be located in the distribution of the left
posterior tibial artery. Please see full dictation for additional detail.
[2024-04-11 12:11] LABS: Glucose - Point of Care 171 mg/dl (70-99)
--- NOTE | 2024-04-11 13:57 | CON.GI ---
Addendum entered and electronically signed by Genny Dorantes Do, MD 04/11/24 17:07:
I saw and examined the patient.
The NUCLEAR MEDICINE PHYSICIAN's note was reviewed and I agree with the note.
Comment: Tessa is a 79yo W with multiple medical issues admitted for sepsis with UTI and possible osteomyelitis. GI consulted for PEG. Vitals stable. She is on TF via DHT. No surgical scars on abdomen. Obese pale appearing. Labs and imaging
reviewed
Plan
- Discussion with family by GI NUCLEAR MEDICINE PHYSICIAN
- If they want to proceed with PEG after entire family discussion they will let us know
- For now c/w TF via DHT.
Will follow with you
Original Note:
Consultation
-
Date/Time Consultation Requested: 04/11/24 1400
Date/Time Consultation Performed: 04/11/24 1400
Requesting Provider: Cat Rucker MD
Performing Provider: DARI Alan, Genny Wagner MD
Reason for Consultation: peg evaluation
Medical History
Chief Complaint / HPI
Chief Complaint: failure to thrive
History of Present Illness:
Pt is a 79yo present with hx PAF, vfib, torsades s/p ICD, CAD on ASA, CHF, CVA, hypercholesterolemia, hypothyroidism, IDDM, GERD, erosive esophagitis with GI bleed 2022 presents with change in mental status on 04/04 with concern for sepsis with UTI,
pyuria, and possible osteomyelitis. She has had progressive neurologic process last 2-3 years after admission to [facility] during covid. Asked to review with family for peg vs hospice with ongoing change in mental status. She has been seen by
speech therapy and recommended NPO and consider goals of care. If opting for pleasure foods consider pureed with thin liquids and single sips.
Pt with noted dysphagia, and limited history as only yelling out at time. Per review of spouse for 55 years no noted nausea, vomiting, abdominal pain, diarrhea, constipation or bleeding he is aware of. distant hx colonoscopy and EGD 2022 with
GI bleed 5 mm HH, non bleeding DH with no stigmata of bleeding. bled on contact.
Past Medical History
Past Medical History: Arrhythmias (PAF, v-fib /torsades, s/p ICD), CAD, CHF, CVA, Hypercholesterolemia, Hypothyroidism, IDDM and Other (GERD, erosive esophagitis, chronic foot wound)
Past Surgical History: Cardiac (AICD)
Social History
Tobacco: Non-Smoker
Alcohol: None
Drug: None
Living: Jail
Employment: Retired
Family History
Family History: Other (no family hx GI issues )
Allergies / Home Medications
Allergy/AdvReac Type Severity Reaction Status Date / Time
Penicillins AdvReac Nausea Verified 04/09/24 17:19
�Medication �Instructions �Recorded
levothyroxine 137 mcg tablet 137 mcg PO DAILY Thyroid 03/31/16
acetaminophen 500 mg tablet 1,000 mg PO Q6HPRN PRN mild to 02/20/23
moderate pain
atorvastatin 40 mg tablet 40 mg PO DAILY High Cholesterol 02/20/23
bisacodyl 10 mg rectal suppository 10 mg UT DAILYPRN PRN constipation 02/20/23
if no results from [facility]
diltiazem HCl 180 mg 180 mg PO DAILY Blood Pressure 02/20/23
capsule,extended release 24 hr
(Cardizem CD)
divalproex 125 mg capsule,delayed 250 mg PO Q12 mood stabilizer 02/20/23
release sprinkle
docusate sodium 100 mg tablet 100 mg PO BID Constipation 02/20/23
fenofibrate 160 mg tablet 160 mg PO DAILY High Cholesterol 02/20/23
insulin glargine 100 unit/mL 10 unit SC HS Diabetes 02/20/23
subcutaneous solution (Lantus
U-100 Insulin)
insulin lispro 100 unit/mL 1 sliding scale dose SC ACHS 02/20/23
subcutaneous solution Diabetes
magnesium oxide 400 mg PO DAILY Supplement 02/20/23
metformin 500 mg tablet 1,000 mg PO BID Diabetes 02/20/23
mirtazapine 15 mg tablet 15 mg PO HS Depression 02/20/23
multivitamin 1 tab PO DAILY Supplement 02/20/23
aspirin 81 mg chewable tablet 81 mg PO DAILY Blood Clot 02/22/23
Prevention/Tx
potassium phosphate m-/d-basic 1 tab PO BID Supplement 02/22/23
melatonin 5 mg tablet 5 mg PO HS Sleep 09/21/23
olanzapine 15 mg tablet (Zyprexa) 15 mg PO HS Mental Health/Anxiety 09/21/23
sucralfate 1 gram tablet 1 g PO ACHS Gastrointestinal Issue 09/21/23
cholecalciferol (vitamin D3) 25 25 mcg PO DAILY Supplement 09/30/23
mcg (1,000 unit) capsule
carvedilol 6.25 mg tablet 6.25 mg PO BID Blood Pressure 04/04/24
ferrous sulfate 325 mg (65 mg 325 mg PO DAILY Supplement 04/04/24
iron) tablet
pantoprazole 40 mg tablet,delayed 40 mg PO BID Gastrointestinal Issue 04/05/24
release
Review of Systems
-
Unable to obtain full review of systems at this time due to: Dementia
History Source: Patient and Family
Constitutional: Reports Weight Loss (+ 20 kg since 2015 but minimal wt loss since 2022 )
EENT: Reports No Symptoms
Respiratory: Reports No Symptoms
Cardiac: Reports No Symptoms
Abdomen/GI: Reports No Symptoms
: Reports Other (hx chronic UTI's)
Musculoskeletal: Reports Other (WC movility )
Neurological: Reports Weakness and Other (confusion )
Hematologic/Lymphatic: Reports No Symptoms
Vital Signs
Temp Pulse Resp BP Pulse Ox
97.2 F 83 18 101/61 97
04/11/24 07:00 04/11/24 07:00 04/11/24 07:00 04/11/24 07:00 04/11/24 12:13
Physical Exam
Exam
General: Other (pale elderly female yelling out no acute distress )
HEENT: Normocephalic and Anicteric
Respiratory: Clear
Cardiac: Regular Rhythm
GI: Soft, Non Tender and Non Distended
Musculoskeletal: No Clubbing and No Cyanosis
Skin: Warm and Dry
Neuro: Other (opens eyes moans incomprehensive )
Psych: Calm
Results
WBC 8.3 10^3/uL (4.8-10.8) 04/11/24 05:43
Hgb 9.1 g/dL (12.0-16.0) L 04/11/24 05:43
Hct 29.0 % (37.0-47.0) L 04/11/24 05:43
MCV 75.7 fL (81.0-99.0) L 04/11/24 05:43
Plt Count 242 10^3/uL (130-400) 04/11/24 05:43
Absolute Neuts (auto) 4.0 10^3/uL (1.4-6.5) 04/11/24 05:43
PT 15.8 Sec (11.4-14.6) H 04/06/24 03:10
INR 1.25 04/06/24 03:10
APTT 40.3 Sec (23.4-35.0) H 04/04/24 19:05
Sodium 140 mmol/L (135-145) 04/11/24 05:43
Potassium 4.2 mmol/L (3.5-5.1) 04/11/24 05:43
Chloride 110 mmol/L (98-107) H 04/11/24 05:43
Carbon Dioxide 24 mmol/L (22-30) 04/11/24 05:43
BUN 21 mg/dl (7-17) H 04/11/24 05:43
Creatinine 0.5 mg/dL (0.6-1.0) L 04/11/24 05:43
Calcium 9.5 mg/dl (8.4-10.2) 04/11/24 05:43
Total Bilirubin 0.6 mg/dl (0.2-1.3) 04/05/24 03:48
AST 20 U/L (14-36) 04/05/24 03:48
ALT 15 U/L (0-35) 04/05/24 03:48
Alkaline Phosphatase 65 U/L (38-126) 04/05/24 03:48
Diagnostic Image Results:
Prior GI Procedures:
EGD: 2022 [facility] with GI bleed 5 mm HH, non bleeding DH with no stigmata of bleeding. bled on contact.
Colonoscopy: last years ago
Assessment / Plan
-
Pt is a 79yo present with hx PAF, vfib, torsades s/p ICD, CAD on ASA, CHF, CVA, hypercholesterolemia, hypothyroidism, IDDM, GERD, erosive esophagitis with GI bleed 2022 presents with change in mental status on 04/04 with concern for sepsis with UTI,
pyuria, and possible osteomyelitis. She has had progressive neurologic process last 2-3 years after admission to [facility] during covde. Asked to review with family for peg vs hospice with ongoing change in mental status. She has been seen by
speech therapy and recommended NPO and consider goals of care. If opting for pleasure foods consider pureed with thin liquids and single sips.
-nutritional evaluation for chronic dysphagia
-change in mental status - advancing dementia vs other neuro process last 2-3 years
-concern for sepsis with urinary issues vs osteo on admission
-profound hypernatremia/ VIKTORIA on admission now improved
-pressure wounds
-chronic anemia
other med problems:
-PAF with RVR
-DM
-hx edsophagitis
-Vifib
-prior torsades with ICD
-CAD
-CHF
-? CVA/dementia
PLAN:
etiology of dysphagia likely related to advancing neuro process with dementia vs other with decline last 2-3 years
I spoke at length spouse and son Vern of risk vs benefits of peg vs hospice
answered questions about risk and benefits of tube vs oral diet etc
family to discuss and decide on if they would want to proceed with feeding tube as unable to leave hospital with DHT
pt can eat if family accepts risks of aspiration/ etc with or without peg in place
all questions answered
pt only on low dose SQ heparin no other anticoagulation
-
-
Thank you for consultation and allowing me to participate in the patient's care. Please call the electronics commodity manager GI physician during the after hours with any questions or concerns.
--- NOTE | 2024-04-11 14:14 | PTOTSP ---
Dysphagia Therapy
No significant improvement in swallowing noted this date. Patient refused PO with SENIOR SOLUTIONS WORKFLOW CONSULTANT but accepted water from . Add single sips of water to Aspiration Risk Hydration Protocol. Education completed with about dysphagia and dementia.
See patient care note.
Recommend:
1. NPO and continued GOC discussions
2. Oral care 4x/day with suctioning as patient permits.
3. If opting for comfort feeding, consider IDDSI Level 4 (Puree) and Thin Liquids via single sips
4. ARHP (ice chips, single sips during day, post oral care, given supervision)
5. Continued SEN[employer] WORKFLOW CONSULTANT f/u at the acute care level pending GOC
[2024-04-11 15:00] VITALS: BP 108/68
--- NOTE | 2024-04-11 16:39 | CM ---
Case management following for d/c planning
Chart reviewed
Nutrition eval today
Remains on antibiotics
CM will follow for d/c needs
Plan - anticipate return to [facility] when medically stable
[2024-04-11 18:04] LABS: Glucose - Point of Care 152 mg/dl (70-99)
[2024-04-11] MEDS: REMERON 15 MG TUBE (22:59)
[2024-04-11] MEDS: ZYPREXA 10 MG TUBE (22:59)
[2024-04-11 23:45] VITALS: BP 130/63
[2024-04-12 00:08] LABS: Glucose - Point of Care 131 mg/dl (70-99)
[2024-04-12] MEDS: LANTUS 0.15 UNITS SC ×2 (00:16→21:44)
[2024-04-12] MEDS: CARDIZEM 30 MG TUBE ×6 (00:21→20:01)
[2024-04-12] MEDS: NOVOLOG FLEXPEN 3 UNITS SC ×3 (00:24→11:57)
[2024-04-12] MEDS: NOVOLOG FLEXPEN-LOW RESISTANCE SC ×4 (00:33→17:03)
[2024-04-12 06:02] LABS: Glucose - Point of Care 102 mg/dl (70-99)
[2024-04-12 06:34] LABS: % Basophils 0.7 % (0-2); % Eosinophils 2.4 % (0-6); % Immature Granulocytes 4.2 % (0-0.5); % Lymphocytes 29.7 % (20.5-51.1); % Monocytes 7.9 % (1.7-9.3); % Neutrophils 55.1 % (42.2-75.2); Absolute Basophils 0.1 10^3/uL (0-0.2); Absolute Eosinophils 0.2 10^3/uL (0-0.7); Absolute Immature Granulocytes 0.4 10^3/uL (0-0.05); Absolute Lymphocytes 2.5 10^3/uL (1.2-3.4); Absolute Monocytes 0.7 10^3/uL (0.1-0.6); Absolute Neutrophils 4.6 10^3/uL (1.4-6.5); Hematocrit 33.7 % (37.0-47.0); Hemoglobin 10.4 g/dL (12.0-16.0); Mean Corp Hgb Conc. 30.9 g/dL (33.0-37.0); Mean Corpuscular Hgb 23.7 pg (27.0-31.0); Mean Corpuscular Volume 76.8 fL (81.0-99.0); Nucleated Red Blood Cells % 0 %; Red Blood Cell Count 4.39 10^6/uL (4.20-5.40); Red Cell Dist. Width 21.2 % (11.5-14.5); White Blood Cell Count 8.4 10^3/uL (4.8-10.8)
[2024-04-12] MEDS: SYNTHROID 137 MCG TUBE (06:36)
[2024-04-12 07:12] LABS: Blood Urea Nitrogen 18 mg/dl (7-17); Calcium 9.8 mg/dl (8.4-10.2); Carbon Dioxide 24 mmol/L (22-30); Chloride 109 mmol/L (98-107); Estimated Creatinine Clearance 56 ml/min; Glucose 94 mg/dl (70-99); Potassium 4.3 mmol/L (3.5-5.1); Sodium 140 mmol/L (135-145); eGFR > 60.00
[2024-04-12 07:40] VITALS: BP 102/68
[2024-04-12] MEDS: GLUCOPHAGE 1000 MG TUBE ×2 (07:49→17:01)
[2024-04-12] MEDS: DEPAKENE 250 MG TUBE ×2 (07:49→20:02)
[2024-04-12] MEDS: FEOSOL 325 MG TUBE (07:49)
[2024-04-12] MEDS: COREG 6.25 MG TUBE ×2 (07:49→20:01)
[2024-04-12] MEDS: HEPARIN 5000 UNITS SC ×2 (07:50→20:03)
[2024-04-12] MEDS: TRIMOX/AMOXIL 500 MG TUBE ×3 (07:50→21:42)
[2024-04-12] MEDS: LIPITOR 40 MG TUBE (07:50)
[2024-04-12] MEDS: NSS (PRESERVATIVE FREE) 10 ML IV ×2 (07:52→20:02)
[2024-04-12] MEDS: PROTONIX IV 40 MG IV ×2 (08:29→20:02)
--- NOTE | 2024-04-12 09:06 | W.PN.HOSP.TC ---
Addendum entered and electronically signed by Cat Frances MD 04/12/24 14:33:
I personally performed a history and physical exam of the patient and discussed management with the resident. I reviewed the resident's note and agree with the documented findings and plan of care HPI/CC.
Abdomen: Soft, NT
Extremities:LUE edema
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
PI on the medial foot with redness
# Septic shock
Source enterococcal UTI
1 set of blood cultures negative
Foot [id number] changes.
Multiple decubitus ulcers potentially could be source
ID evaluation appreciated
Currently on Augmentin
# Lactic acidosis-Resolved
# TME improved
# Dysphagia-video swallow evaluation noted
Speech following
Family insisted on getting GI recommendation regarding PEG tube. She is a candidate if needed.
Today speech evaluation recommended pur�ed diet which we have ordered.
I discussed with the family that patient always wants to eat , hopefully if she can continue with a pur�ed diet we can discontinue NG tube.
did confirm that if she failed swallow test family would want her to be getting a PEG tube.
I reminded him that patient always is asking for food and a PEG tube would take that pressure away from her.
# Hypernatremia
Likely secondary to volume depletion
Resolved
# Multiple pressure injuries
# VIKTORIA-Resolved
# Paroxysmal atrial fibrillation with RVR
Patient have Dobbhoff tube placed and able to be getting carvedilol and diltiazem through tube
Not on anticoagulation with increased fall risk and advanced age likely
# DM
Lantus 13U and NovoLog 3 U and SSI
Lantus 15 U
Hemoglobin A1c 6.2
Restarted metformin
# Constipation- Resolved
# Anemia-iron sulfate
# Possible left adrenal mass versus more likely gastric diverticulum versus less likely exophytic left renal mass-OP follow up
# Hypoalbuminemia
# History of V-fib/torsades status post ICD
#Coronary artery disease
# Chronic diastolic HF - EF 60% in February 15
# History of CVA-ASA,Statin
# Essential hypertension
# GERD/History of upper GI bleeding secondary to erosive esophagitis-PPI, Carafate
# Hyperlipidemia-continue atorvastatin, fenofibrate
# Hypothyroidism-Synthroid 137 mcg daily, metformin 1000 mg p.o. twice daily
# Diverticulosis
# Advanced dementia with behavioral disturbances-on Depakote 250 mg every 12, Remeron 15 mg at bedtime, Zyprexa 15 mg at bedtime
# DNR/DNI
# DVT prophylaxis�heparin
D/W Vascular
Discussed with GI
Discussed with speech
Discussed with patient's son in detail on the phone.
Second visit to patient's room to meet and I went over everything with him also.
I will request vascular opinion about her arterial ulcers
If no vascular plans and if patient is tolerating diet we will discharge her to rehab.
Original Note:
Today's Communication/Plan
-
Goals of care discussion regarding PEG tube
Assessment / Plan
Assessment / Plan
1. #Septic shock
-resolved, patient afebrile, blood pressures within normal limits
-Chest x-ray did not show any clear signs of pneumonia
-blood culture neg, 1 set ordered
-Foot x-ray did not show any overt osteomyelitis
-Required small dose of Levophed, off of it now
-Source is still unclear, podiatry consulted for nonhealing wounds on feet and potential subcutaneous emphysema seen on x-ray
-Podiatry said that wound is very unlikely source, does not believe that a bone biopsy is warranted as there is no local response
-Patient was not a candidate for MRI due to her mentation status and ICD placement, MRI could not scan her
#Enterococcal urinary tract infection
-Resolved
-Urinalysis shows 11-15 WBC, +1 leukocyte esterase
-Urine culture growing Enterococcus species
-Has received empiric Unasyn 3 g IV every 6 hours, day 4
-Status post 2 days of ceftriaxone
-Infectious disease started patient on oral amoxicillin, day 3
-Infectious disease recommends discontinuing amoxicillin
2. TME
Dementia with behavioral problems
Dysphagia
-Speech therapy cleared patient for pills and crushed applesauce if needed.
-patient awake and morning episodically, not answering any questions -Per family this is baseline.
-Discussion Tuesday and patient family interested in PEG tube if needed. Discussed poor prognosis although patient family remains hopeful that patient will improve as she has done this in the past. Patient truly qualifies for hospice with end-stage
dementia/failure to thrive/multiple decubitus wound.
-I was personally present as a bystander during the goals of care discussion, family wants to understand if patient is a candidate for PEG tube before making a decision
-Goals of care discussion will continue with family
-GI explained that even with the PEG tube aspiration risk still remains and it would not improve quality of life due to her advanced dementia
-Speech and swallow evaluated the patient and recommended continuing n.p.o. and furthering goals of care discussions
3. Acute hypernatremia
-resolved
-Sodium 140 this a.m.
-Secondary to volume depletion/decreased oral intake with dementia
-Got D5 water in ICU
-Also got started on tube feed with free water flushes
4. Multiple pressure injuries
-Diffuse multiple pressure injury of stage I and II over both heel/buttocks
-Buttocks wound is a stage I pressure ulcer
-wound care evaluated
-Podiatry consulted
-Podiatry recommends no further workup for potential osteomyelitis, patient unable to undergo MRI due to ICD.
-As well as there being no local response they believe a bone biopsy/MRI is not warranted, considering patient's state of health
5. Left eye conjunctivitis
-Some crusting visible
-Eyedrops prn
6. Acute kidney injury prerenal
-resolved with IVF
7. Paroxysmal atrial fibrillation with RVR
-Patient have Dobbhoff tube placed and able to be getting carvedilol and diltiazem through tube
-Not on anticoagulation with increased fall risk and advanced age likely
8. NIDDM
-Regimen changed to low resistance ISS and 3U q6 insulin with lantus 15U HS
-will increase lantus/standing novolog dose if needed
History of V-fib/torsades status post ICD
Coronary artery disease
Presumed diastolic HF - EF 60% in February 15
History of CVA
Essential hypertension
GERD
History of upper GI bleeding secondary to erosive esophagitis
Hypercholesterolemia
Hypothyroidism
Advanced dementia with behavioral disturbances
N.p.o.
DNR/DNI
DVT prophylaxis�heparin
Anticipated Discharge: > 48 hours
Subjective/Interval History
-
Date of Service: April 12, 2024
No acute events overnight
Goals of care discussions ongoing
Family was informed PEG tube is possible if wanted
Objective Data
-
Labs:
Laboratory Results
04/12/24
05:54
WBC 8.4
Hgb 10.4 L
Hct 33.7 L
Plt Count
Sodium 140
Potassium 4.3
Chloride 109 H
Carbon Dioxide 24
BUN 18 H
Creatinine 0.5 L
Glucose 94
Calcium 9.8
Vital Signs:
Vital Signs
Temp Pulse Resp BP Pulse Ox
97.4 F 87 19 102/68 97
04/12/24 07:40 04/12/24 07:40 04/12/24 07:40 04/12/24 07:40 04/12/24 07:40
I&O
04/11/24 04/12/24 04/13/24
06:59 06:59 06:59
Intake Total 650 / 650
Balance 650 / 650
Review of Systems
-
Unable to obtain full review of systems at this time due to: Dementia and Patient Non-verbal
Physical Exam
-
General: Appears in Distress, Appears Chronically Ill and Cachectic
Cardiac: Regular Rhythm and S1/S2
Skin: Warm, Dry and Lesions
Neuro: Negative Awake, Alert, Oriented or AO x 3
Psych: Confused and Apparent Dementia; Negative Intact Judgement/Insight
Data Reviewed
-
Labs: Labs Reviewed by me and Discussed with Physician
--- NOTE | 2024-04-12 09:47 | W.PN.GI.CBS2 ---
Addendum entered and electronically signed by Genny Dorantes Do, MD 04/12/24 12:59:
I saw and examined the patient.
The SHREDDED FILLER MACHINE WRAPPER LAYER's note was reviewed and I agree with the note.
Comment: Spoke to speech therapist and thinks pt may be able to trial puree diet today. Pt is asking for food. Vitals reviewed exam pale appearing DHT in with TF at goal. Labs reviewed. At this juncture will see how she does with puree trial.
Family was apprehensive about feeding tube yesterday. Will hold on PEG given oral trial. For now will sign off please call if needed.
Original Note:
Today's Communication / Plan
-
etiology of dysphagia likely related to advancing neuro process with dementia vs other with decline last 2-3 years
spoke at length with spouse and son 04/11 about peg vs hospice
await family decision
remains on tube feeds at goal via DHT
pt only on low dose SQ heparin no other anticoagulation
Assessment / Plan
-
Pt is a 79yo present with hx PAF, vfib, torsades s/p ICD, CAD on ASA, CHF, CVA, hypercholesterolemia, hypothyroidism, IDDM, GERD, erosive esophagitis with GI bleed 2022 presents with change in mental status on 04/04 with concern for sepsis with UTI,
pyuria, and possible osteomyelitis. She has had progressive neurologic process last 2-3 years after admission to [facility]. Asked to review with family for peg vs hospice with ongoing change in mental status. She has been seen by
speech therapy and recommended NPO and consider goals of care. If opting for pleasure foods consider pureed with thin liquids and single sips.
-nutritional evaluation for chronic dysphagia
-change in mental status - advancing dementia vs other neuro process last 2-3 years
-concern for sepsis with urinary issues vs osteo on admission
-profound hypernatremia/ VIKTORIA on admission now improved
-pressure wounds
-chronic anemia
other med problems:
-PAF with RVR
-DM
-hx edsophagitis
-Vifib
-prior torsades with ICD
-CAD
-CHF
-? CVA/dementia
PLAN:
etiology of dysphagia likely related to advancing neuro process with dementia vs other with decline last 2-3 years
spoke at length with spouse and son 04/11 about peg vs hospice
await family decision
remains on tube feeds at goal via DHT
pt only on low dose SQ heparin no other anticoagulation
Subjective
Subjective
Date of Service: April 12, 2024
Pt non verbal -- remains on tube feed with loose stool 04/11
Objective
Data Reviewed
Laboratory Data:
Laboratory Results
04/12/24 05:54
04/12/24 05:54
Laboratory Results
PT 15.8 Sec (11.4-14.6) H 04/06/24 03:10
INR 1.25 04/06/24 03:10
APTT 40.3 Sec (23.4-35.0) H 04/04/24 19:05
Phosphorus 3.4 mg/dl (2.5-4.5) 04/05/24 03:48
Magnesium 1.9 mg/dl (1.6-2.3) 04/05/24 03:48
Total Bilirubin 0.6 mg/dl (0.2-1.3) 04/05/24 03:48
AST 20 U/L (14-36) 04/05/24 03:48
ALT 15 U/L (0-35) 04/05/24 03:48
Alkaline Phosphatase 65 U/L (38-126) 04/05/24 03:48
Vital Signs and I&O:
Vital Signs
Temp Pulse Resp BP Pulse Ox
97.4 F 87 19 102/68 97
04/12/24 07:40 04/12/24 07:40 04/12/24 07:40 04/12/24 07:40 04/12/24 07:57
I&O
04/11/24 04/12/24 04/13/24
06:59 06:59 06:59
Intake Total 650 / 650
Balance 650 / 650
Physical Exam
Physical Exam
HEENT: Anicteric and Moist mucous membranes
Cardiology: Normal Sinus Rhythm and Other (noted some tachycardia earlier today )
Pulmonary: Clear
GI: Soft, Non Distended, Non Tender and Other (DHT in place )
Extremities: No Edema
Neuro: Other (non verbal sleeping quietly )
[2024-04-12 10:41] VITALS: BMI 19.9
--- NOTE | 2024-04-12 11:20 | PTOTSP ---
Speech Language Pathology
Pt seen for dysphagia tx. Family deciding on PEG tube. Pt currently NPO with DHT. Upon arrival, pt alert and sitting upright, moaning frequently. Did consistently answer yes/no questions. Discussed current NPO status, results of VSE, and
consideration for PEG tube. Pt stated multiple times 'I want to eat,' 'I want food,' 'I'm hungry,' and 'water.' Discussed option of PEG tube. When asked if she would want a feeding tube for nutrition, pt consistently replied 'no.' When asked if
she would want to eat/drink despite possible risk, pt consistently answered 'yes.'
P.O. trials of puree, jello, and thin liquids via straw provided. Adequate oral phase with limited consistencies trialed. No change in vocal quality or overt coughing with single sips. Allowed to drink consecutive sips x1 with resultant delayed
brief cough.
Given overall improvement since date VSE was completed (04/09) with tolerance of 4 ounces of water, cup of jello, and a few tsps of puree without overt difficulty if volume limited, recommend trial diet.
Recommend:
(1) Initiate IDDSI Level 4 (Puree) and Thin Liquids
(2) Aspiration precautions: sit upright, slow rate, single sips (pinch straw), full supervision with assist as needed
(3) Discontinue diet if any signs of aspiration noted
(4) Meds crushed in puree as tolerated
(5) PRODUCTION TECH to continue to follow
[2024-04-12 11:48] LABS: Glucose - Point of Care 118 mg/dl (70-99)
--- NOTE | 2024-04-12 13:42 | CM ---
CM reviewed medical records. Goals of care discussions are ongoing. CM will continue to follow.
--- NOTE | 2024-04-12 14:48 | W.PN.ID1 ---
Date of Service
Date of Service: April 12, 2024
Today's Communication
Observe off antibiotics.
Assessment / Plan
Clinical sepsis
�resolved
UTI / pyuria / bactieuria
Toxic metabolic encephalopathy/delirium/confusion
Multiple pressure injuries
Left first met head ulceration
Other conditions
Coronary artery disease
Presumed diastolic HF - EF 60% in February 15
History of CVA
Essential hypertension
GERD
History of upper GI bleeding secondary to erosive esophagitis
Hypercholesterolemia
Hypothyroidism
Advanced dementia
Recommendations
Completing course of amoxicillin today.
Local care to the left hallux ulceration. At present, it is not clear whether there is underlying osteomyelitis (no erosion on plain film), although given overarching comorbidities of the patient, workup likely not warranted at this juncture.
Goals of care discussion ongoing with family.
Clinically, patient appears palliative care/hospice appropriate, as doubt there is any significant improvement to quality of life that could be anticipated.
����������������������������������������������������������
Chief Complaint
-: Other (Left foot ulceration)
Subjective / Review of Systems
Review of Systems: No Fever
Vital Signs / Physical Exam
Vital Signs
Vital Signs
Temp Pulse Resp BP Pulse Ox
97.4 F 87 19 102/68 97
04/12/24 07:40 04/12/24 07:40 04/12/24 07:40 04/12/24 07:40 04/12/24 09:59
Physical Exam
Constitutional: No Acute Distress, Comfortable and Chronically Ill
Head: Other (Nasal Dobbhoff in place.)
Cardiovascular: S1/S2; Negative S3/S4
Pulmonary: Non Labored
Extremities: Negative Edema or Cyanosis
Wound: Other (Left medial first met head dry ulceration (unstageable). No periwound erythema.)
Neurological: Other (Responsive to touch.)
Objective Data
Lab Data
Lab Results
04/12/24 05:54
04/12/24 05:54
PT 15.8 Sec (11.4-14.6) H 04/06/24 03:10
INR 1.25 04/06/24 03:10
APTT 40.3 Sec (23.4-35.0) H 04/04/24 19:05
Estimated Creat Clear 56 ml/min 04/12/24 05:54
Lactic Acid Cancelled 04/05/24 00:42
Total Bilirubin 0.6 mg/dl (0.2-1.3) 04/05/24 03:48
AST 20 U/L (14-36) 04/05/24 03:48
ALT 15 U/L (0-35) 04/05/24 03:48
Alkaline Phosphatase 65 U/L (38-126) 04/05/24 03:48
Most recent labs reviewed.
Micro Results:
04/04/24 15:27 Blood Culture - Final
Blood/Venous No Growth - Final Report
04/04/24 15:27 Urine Culture - Final
Urine Enterococcus faecalis
04/05/24 00:21 MRSA Screen - Final
Nose No Methicillin Resistant Staphylococcus aureus isolated.
Imaging
CT Scan: AP 04/04/24- No acute pathology of the abdomen or pelvis identified. Incidental possible left adrenal mass versus more likely gastric diverticulum versus less likely exophytic left renal mass. This should further be evaluated by a nonurgent
repeat CT examination of the abdomen with oral and IV contrast. Moderate fecal material throughout the colon.
Chest X-Ray: 04/04/24- No acute disease of the chest
11/17/23 ABIs: Left VANI on calculable; left TBI 0.42 Left toe brachial index measures 0.42. Infrapopliteal disease is suspected based on spectral Doppler waveform analysis. No Doppler signal could be located in the distribution of the left
posterior tibial artery. Please see full dictation for additional detail.
--- NOTE | 2024-04-12 14:51 | CON.VAS ---
Consultation
Consultation Request
Date/Time Consultation Requested: 04/12/2024
Date/Time Consultation Performed: 04/12/2024
Requesting Provider: Juan Daniel
Performing Provider: Dimas
Reason for Consultation: Left foot wound
Medical History
Allergies / Home Medications
Allergy/AdvReac Type Severity Reaction Status Date / Time
Penicillins AdvReac Nausea Verified 04/09/24 17:19
�Medication �Instructions �Recorded �Confirmed �Type
levothyroxine 137 mcg tablet 137 mcg PO DAILY Thyroid 03/31/16 04/04/24 History
acetaminophen 500 mg tablet 1,000 mg PO Q6HPRN PRN mild to 02/20/23 04/04/24 History
moderate pain
atorvastatin 40 mg tablet 40 mg PO DAILY High Cholesterol 02/20/23 04/04/24 History
bisacodyl 10 mg rectal suppository 10 mg MN DAILYPRN PRN constipation 02/20/23 04/04/24 History
if no results from [facility]
diltiazem HCl 180 mg 180 mg PO DAILY Blood Pressure 02/20/23 04/04/24 History
capsule,extended release 24 hr
(Cardizem CD)
divalproex 125 mg capsule,delayed 250 mg PO Q12 mood stabilizer 02/20/23 04/04/24 History
release sprinkle
docusate sodium 100 mg tablet 100 mg PO BID Constipation 02/20/23 04/04/24 History
fenofibrate 160 mg tablet 160 mg PO DAILY High Cholesterol 02/20/23 04/04/24 History
insulin glargine 100 unit/mL 10 unit SC HS Diabetes 02/20/23 04/04/24 History
subcutaneous solution (Lantus
U-100 Insulin)
insulin lispro 100 unit/mL 1 sliding scale dose SC ACHS 02/20/23 04/04/24 History
subcutaneous solution Diabetes
magnesium oxide 400 mg PO DAILY Supplement 02/20/23 04/04/24 History
metformin 500 mg tablet 1,000 mg PO BID Diabetes 02/20/23 04/04/24 History
mirtazapine 15 mg tablet 15 mg PO HS Depression 02/20/23 04/04/24 History
multivitamin 1 tab PO DAILY Supplement 02/20/23 04/04/24 History
aspirin 81 mg chewable tablet 81 mg PO DAILY Blood Clot 02/22/23 04/04/24 History
Prevention/Tx
potassium phosphate m-/d-basic 1 tab PO BID Supplement 02/22/23 04/04/24 History
melatonin 5 mg tablet 5 mg PO HS Sleep 09/21/23 04/04/24 History
olanzapine 15 mg tablet (Zyprexa) 15 mg PO HS Mental Health/Anxiety 09/21/23 04/04/24 History
sucralfate 1 gram tablet 1 g PO ACHS Gastrointestinal Issue 09/21/23 04/04/24 History
cholecalciferol (vitamin D3) 25 25 mcg PO DAILY Supplement 09/30/23 04/04/24 History
mcg (1,000 unit) capsule
carvedilol 6.25 mg tablet 6.25 mg PO BID Blood Pressure 04/04/24 04/04/24 History
ferrous sulfate 325 mg (65 mg 325 mg PO DAILY Supplement 04/04/24 04/04/24 History
iron) tablet
pantoprazole 40 mg tablet,delayed 40 mg PO BID Gastrointestinal Issue 04/05/24 04/04/24 History
release
Physical Exam
Vital Signs
Temp Pulse Resp BP Pulse Ox
97.4 F 87 19 102/68 97
04/12/24 07:40 04/12/24 07:40 04/12/24 07:40 04/12/24 07:40 04/12/24 09:59
Lab Results
04/12/24 05:54
04/12/24 05:54
Assessment / Plan
-
Patient is known to me from prior endovascular intervention for critical limb threatening ischemia of the right lower extremity
Now has medial left foot wound over the metatarsal head
Patient is demented and nonverbal -only moaning intermittently
at bedside
Dobbhoff tube in place
I had a long conversation with her . Additional intervention of her left lower extremity might involve arteriogram with possible endovascular revascularization strategies and local wound care/debridment. I explained the technical aspects of
this procedure to him along with the possible risks of surgery. Given her nonambulatory status, advanced/worsening dementia, malnutrition and overall poor prognosis/QOL I am not recommending vascular surgery intervention. Patient's is in
agreement with this plan and would like to focus on comfort care and local wound care of her foot. Discussed my recommendations with Dr. Frances.
Call with questions or concerns
Rey Cochran III, MD
[facility] V[facility] Surgery
[phone] ([phone])
[2024-04-12 15:05] VITALS: BP 143/69
[2024-04-12 16:22] LABS: Glucose - Point of Care 120 mg/dl (70-99)
--- NOTE | 2024-04-12 17:56 | W.DCSUMMARY ---
Documented by User: Gael Hwang DO, Resident 04/14/24 10:53
Discharge Summary
Discharge Data
Date of Admission: 04/04/24
Date of Discharge: 04/14/24
-
Pending Results: No
Hospital Course
Discharging Physician : Juan Daniel Hwang
Disposition : Rehab facility
Primary care physician : Dr. Tom Mehta
Principal Discharge diagnosis : Altered mental status
Chronic Discharge diagnosis : advanced dementia with behavioral disturbances, paroxysmal atrial fibrillation, TME, Septic shock, acute hypernatremia, Left eye conjunctivitis,Prerenal VIKTORIA, NIDDM, Multiple pressure injuries, V-fib/torsades status post
ICD, CAD, CHF, CVA, hypertension, GERD, erosive esophagitis, hypercholesterolemia, diabetes, hypothyroidism, chronic foot wound
Hospital Course : 79-year-old female with advanced end-stage dementia presents to the emergency department with altered mental status from her longterm according to the family and staff. Unsure of patient's baseline, family reports patient as
conversant. Patient will only moan to voice. On admission urinalysis was positive for UTI, patient was septic with fever leukocytosis tachycardia tachypnea and hypotension and a lactic acid level of 5.1. Sodium on admission was 157, BUN 66,
creatinine 1.3 baseline creatinine around 0.5 patient received IV fluids, was started on cefepime, and received 2 days of 1000 mg IV cefepime. Patient was admitted to the ICU, patient was hemodynamically unstable and required a brief course of
pressors. Patients urine was found to grow Enterococcus faecalis, Id was consulted and started the patient on Unasyn for 4 days then transitioned to enteral amoxicillin for 3 days total. Patient has multiple pressure injuries of varying stages over
heel/buttocks. One on her left ankle xray, there was suspicion for osteomyelitis. After a podiatry and ID consult it was decided that the patient wouldn't benefit from an MRI as, there was a very low suspicion for OM, and she could not get one due
to her ICD and dementia. As well as she would need a bone biopsy to confirm which would be too invasive for her state of health. Patients sepsis, VIKTORIA and hypernatremia all resolved. Speech and swallow has been following the patient, at first their
recommendation was the patient was high risk for aspiration and was recommended the patient be NPO and aspiration precautions, with NG tube feedings, then to start a GOC discussion with the family. Eventually patient expressed that she wanted to eat
and did not want a PEG/NG tube. S/S cleared patient to eat IDDSI level 4 diet. Patient was transitioned to PO medications via crush and with applesauce. NG tube was extubated. Patient's and children have been involved with multiple goals of
care discussions throughout their stay. Eventually it was decided that the patient would be transitioned to hospice and comfort care. Patient will be discharged to [facility]. On day of discharge, patient became conversant, was articulating
that she is hungry, she is not in pain currently, and she had trouble sleeping. Per family this is her baseline and was the first time during this stay we have seen this. GOC and hospice discussion will continue at [facility].
Important imaging findings :
04/04/2024 chest x-ray, findings:
No acute disease of the chest
04/04/2024 abdomen/pelvis CT, findings:
No acute pathology of the abdomen or pelvis identified.
Incidental possible left adrenal mass versus more likely gastric diverticulum versus less likely exophytic left renal mass. This should further be evaluated by a nonurgent repeat CT examination of the abdomen with oral and IV contrast.
Moderate fecal material throughout the colon.
Mild diverticulosis.
Evidence of previous granulomatous disease.
Moderate atherosclerotic vascular disease.
04/05/2024 chest x-ray
No active cardiopulmonary disease.
The tip of the Dobbhoff tube is in the gastric antrum
1123 foot x-ray, findings:
There is severe bony demineralization. There is subluxation of the interphalangeal of the left great toe
No bony destruction is noted. There is mild air within the medial soft tissues about the distal shaft of the proximal phalanx of the left great toe. This abuts of the medial cortex. No fractures are noted. There are hammertoe deformities of the
second and third digits. There is a small plantar calcaneal spur. The cortex is intact. No radiopaque foreign bodies are noted.
04/06/2024 abdomen x-ray, findings:
Feeding tube placement in the stomach
04/10/[address], findings:
No acute intracranial abnormalities.
Findings compatible with diffuse cortical atrophy with nonspecific white matter changes as described above
Procedure findings :
04/06/2024, NG tube placed 04/06/2024 abdomen x-ray, findings:
Feeding tube placement in the stomach
04/09/24 Modified barium swallow:
Findings: The patient swallowing function was evaluated fluoroscopically and with videotape during the ingestion of several consistencies of barium, in conjunction with the speech pathologist.
Thin liquid barium by spoon: No penetration or aspiration
Thin liquid barium consecutive sips by straw: Penetration no aspiration
[place] consistency barium by spoon: Penetration no aspiration
[place] consistency barium single sip by straw: No penetration or aspiration
[place] consistency barium consecutive sips by straw: Deep penetration no aspiration
Honey consistency barium by spoon: Penetration no aspiration
Barium pudding by spoon: Penetration no aspiration
Impression: Penetration noted with all consistencies introduced. No fluoroscopic evidence of airway aspiration Detailed findings as described above.
Discharge Plan
-
Patient Disposition: Detention/SNF
Discharge Diagnosis/Procedures: Altered mental status, advanced dementia with behavioral disturbances, paroxysmal atrial fibrillation, TME, Septic shock, acute hypernatremia, Left eye conjunctivitis, Prerenal VIKTORIA, NIDDM, Multiple pressure injuries,
V-fib/torsades status post ICD, CAD, CHF, CVA, hypertension, GERD, erosive esophagitis, hypercholesterolemia, diabetes, hypothyroidism, chronic foot wound
Condition: Fair
Diet: Other diet
Additional Diets: Puree and thin liquids (IDDSI level 4), aspiration precautions- small sips and chin tuck swallowing
Activity: With assistance, As tolerated and No strenuous activity
Driving Restrictions: No driving
Bathing Restrictions: None
Other Services: PT, OT, ST and Hospice
Activity Restrictions/Additional Instructions:
Wound Care Instructions
Left Foot Wound- Apply Betadine and Silicone border foam daily
Left and Right Ischium and Sacrum- Keep areas covered with silicone border foam. Change Q 3 days and PRN if loose or soiled.
Bilateral Heels- No -sting barrier wipe and adhesive foam. Change Q 3 days and PRN if loose or soiled.
Right foot newly healed wound- Keep covered with silicone border foam. Change Q 3 days and PRN if loose or soiled.
Keep Heels off-loaded with pillows under calves
Turning schedule
Patient requires air surface
'Possible left adrenal mass versus more likely gastric diverticulum versus less likely exophytic left renal mass' - On CT- This needs a follow up with a CT abdomen and pelvis with contrast.
Aspiration precautions:
Keep head of bed at at least 45 degree angle. Encourage small sips and chin tuck when swallowing
Referrals:
Tom Mehta I., DO [Family Provider] -
Prescriptions:
New
carvedilol 6.25 mg Tablet
6.25 mg feeding tube BID Qty: 0 0RF
Continued
levothyroxine 137 MCG tablet
137 mcg PO DAILY
multivitamin Tablet
1 tab PO DAILY
atorvastatin 40 mg Tablet
40 mg PO DAILY
metformin 500 mg Tablet
1,000 mg PO BID
diltiazem HCl [Cardizem CD] 180 mg Capsule,Extended Release 24hr
180 mg PO DAILY
acetaminophen 500 mg Tablet
1,000 mg PO Q6HPRN PRN (Reason: mild to moderate pain)
bisacodyl 10 mg Suppository
10 mg SD DAILYPRN PRN (Reason: constipation if no results from MOM)
mirtazapine 15 mg Tablet
15 mg PO HS
insulin lispro 100 unit/mL Solution
1 sliding scale dose SC ACHS
Rx Instructions:
Sliding Scale: BG 150-200 = 2 units; 201-250 = 4 units; 251-300 = 6 units; 301-350 = 8 units- luke md if BS <60 or > 351
divalproex 125 mg Capsule, Delayed Rel Sprinkle
250 mg PO Q12
docusate sodium 100 mg Tablet
100 mg PO BID
fenofibrate 160 mg Tablet
160 mg PO DAILY
magnesium oxide 400 mg magnesium Tablet
400 mg PO DAILY
aspirin 81 mg Tablet,Chewable
81 mg PO DAILY
potassium phosphate m-/d-basic tablet
1 tab PO BID
Rx Instructions:
Phosphorous Oral Tablet [phone] (Pot Phosphate Monobasic w/ Sod Phosphate Dibasic & Monobasic)
sucralfate 1 gram Tablet
1 g PO ACHS
melatonin 5 mg Tablet
5 mg PO HS
olanzapine [Zyprexa] 15 mg Tablet
15 mg PO HS
cholecalciferol (vitamin D3) 25 mcg (1,000 unit) Capsule
25 mcg PO DAILY
carvedilol 6.25 mg Tablet
6.25 mg PO BID
ferrous sulfate 325 mg (65 mg iron) Tablet
325 mg PO DAILY
pantoprazole 40 mg tablet,delayed release (DR/EC)
40 mg PO BID
Changed
insulin glargine [Lantus U-100 Insulin] 100 unit/mL Solution
8 unit SC HS Qty: 0 0RF
Discharge Orders:
Discharge Patient (As Directed); Ordered 04/13/24
Ordered By: Gael Hwang
Discharge Date and Time
Print Language: GUATEMALAN

Documented by User: Cat Frances MD 04/14/24 12:48
Discharge Summary
Discharge Data
Date of Admission: 04/04/24
Date of Discharge: 04/14/24
Discharge Plan
-
Patient Disposition: Detention/SNF
Discharge Diagnosis/Procedures: Altered mental status, advanced dementia with behavioral disturbances, paroxysmal atrial fibrillation, TME, Septic shock, acute hypernatremia, Left eye conjunctivitis, Prerenal VIKTORIA, NIDDM, Multiple pressure injuries,
V-fib/torsades status post ICD, CAD, CHF, CVA, hypertension, GERD, erosive esophagitis, hypercholesterolemia, diabetes, hypothyroidism, chronic foot wound
Condition: Fair
Diet: Other diet
Additional Diets: Puree and thin liquids (IDDSI level 4), aspiration precautions- small sips and chin tuck swallowing
Activity: With assistance, As tolerated and No strenuous activity
Driving Restrictions: No driving
Bathing Restrictions: None
Other Services: PT, OT, ST and Hospice
Activity Restrictions/Additional Instructions:
Wound Care Instructions
Left Foot Wound- Apply Betadine and Silicone border foam daily
Left and Right Ischium and Sacrum- Keep areas covered with silicone border foam. Change Q 3 days and PRN if loose or soiled.
Bilateral Heels- No -sting barrier wipe and adhesive foam. Change Q 3 days and PRN if loose or soiled.
Right foot newly healed wound- Keep covered with silicone border foam. Change Q 3 days and PRN if loose or soiled.
Keep Heels off-loaded with pillows under calves
Turning schedule
Patient requires air surface
'Possible left adrenal mass versus more likely gastric diverticulum versus less likely exophytic left renal mass' - On CT- This needs a follow up with a CT abdomen and pelvis with contrast.
Aspiration precautions:
Keep head of bed at at least 45 degree angle. Encourage small sips and chin tuck when swallowing
Referrals:
Tom Mehta I., DO [Family Provider] -
Prescriptions:
New
carvedilol 6.25 mg Tablet
6.25 mg feeding tube BID Qty: 0 0RF
Continued
levothyroxine 137 MCG tablet
137 mcg PO DAILY
multivitamin Tablet
1 tab PO DAILY
atorvastatin 40 mg Tablet
40 mg PO DAILY
metformin 500 mg Tablet
1,000 mg PO BID
diltiazem HCl [Cardizem CD] 180 mg Capsule,Extended Release 24hr
180 mg PO DAILY
acetaminophen 500 mg Tablet
1,000 mg PO Q6HPRN PRN (Reason: mild to moderate pain)
bisacodyl 10 mg Suppository
10 mg SD DAILYPRN PRN (Reason: constipation if no results from MOM)
mirtazapine 15 mg Tablet
15 mg PO HS
insulin lispro 100 unit/mL Solution
1 sliding scale dose SC ACHS
Rx Instructions:
Sliding Scale: BG 150-200 = 2 units; 201-250 = 4 units; 251-300 = 6 units; 301-350 = 8 units- luke md if BS <60 or > 351
divalproex 125 mg Capsule, Delayed Rel Sprinkle
250 mg PO Q12
docusate sodium 100 mg Tablet
100 mg PO BID
fenofibrate 160 mg Tablet
160 mg PO DAILY
magnesium oxide 400 mg magnesium Tablet
400 mg PO DAILY
aspirin 81 mg Tablet,Chewable
81 mg PO DAILY
potassium phosphate m-/d-basic tablet
1 tab PO BID
Rx Instructions:
Phosphorous Oral Tablet [phone] (Pot Phosphate Monobasic w/ Sod Phosphate Dibasic & Monobasic)
sucralfate 1 gram Tablet
1 g PO ACHS
melatonin 5 mg Tablet
5 mg PO HS
olanzapine [Zyprexa] 15 mg Tablet
15 mg PO HS
cholecalciferol (vitamin D3) 25 mcg (1,000 unit) Capsule
25 mcg PO DAILY
carvedilol 6.25 mg Tablet
6.25 mg PO BID
ferrous sulfate 325 mg (65 mg iron) Tablet
325 mg PO DAILY
pantoprazole 40 mg tablet,delayed release (DR/EC)
40 mg PO BID
Changed
insulin glargine [Lantus U-100 Insulin] 100 unit/mL Solution
8 unit SC HS Qty: 0 0RF
Discharge Orders:
Discharge Patient (As Directed); Ordered 04/13/24
Ordered By: Gael Hwang
Discharge Date and Time
Print Language: GUATEMALAN
[2024-04-12] MEDS: REMERON 15 MG TUBE (21:42)
[2024-04-12] MEDS: ZYPREXA 10 MG TUBE (21:42)
[2024-04-12 21:45] LABS: Glucose - Point of Care 104 mg/dl (70-99)
[2024-04-13] MEDS: CARDIZEM 30 MG TUBE ×6 (00:18→23:47)
[2024-04-13 04:06] VITALS: BP 111/65
[2024-04-13] MEDS: SYNTHROID 137 MCG TUBE (05:08)
[2024-04-13 06:00] VITALS: BMI 19.7
[2024-04-13 06:44] LABS: Blood Urea Nitrogen 20 mg/dl (7-17); Calcium 9.4 mg/dl (8.4-10.2); Carbon Dioxide 25 mmol/L (22-30); Chloride 110 mmol/L (98-107); Estimated Creatinine Clearance 56 ml/min; Glucose 79 mg/dl (70-99); Potassium 4.4 mmol/L (3.5-5.1); Sodium 138 mmol/L (135-145); eGFR > 60.00
[2024-04-13 06:51] LABS: % Basophils 0.6 % (0-2); % Immature Granulocytes 3.2 % (0-0.5); % Lymphocytes 34.3 % (20.5-51.1); % Neutrophils 52.9 % (42.2-75.2); Absolute Basophils 0.1 10^3/uL (0-0.2); Absolute Eosinophils 0.2 10^3/uL (0-0.7); Absolute Immature Granulocytes 0.3 10^3/uL (0-0.05); Absolute Monocytes 0.6 10^3/uL (0.1-0.6); Absolute Neutrophils 4.7 10^3/uL (1.4-6.5); Hematocrit 29.3 % (37.0-47.0); Hemoglobin 9.2 g/dL (12.0-16.0); Mean Corp Hgb Conc. 31.4 g/dL (33.0-37.0); Mean Corpuscular Hgb 24.1 pg (27.0-31.0); Mean Corpuscular Volume 76.7 fL (81.0-99.0); Mean Platelet Volume 12.1 fL (7.4-10.4); Nucleated Red Blood Cells % 0.2 %; Platelet Count 292 10^3/uL (130-400); Red Blood Cell Count 3.82 10^6/uL (4.20-5.40); Red Cell Dist. Width 21.3 % (11.5-14.5); White Blood Cell Count 8.8 10^3/uL (4.8-10.8)
[2024-04-13 07:41] VITALS: BP 103/52
[2024-04-13] MEDS: DEPAKENE 250 MG TUBE ×2 (08:26→20:03)
[2024-04-13] MEDS: HEPARIN 5000 UNITS SC ×2 (08:28→20:04)
[2024-04-13] MEDS: GLUCOPHAGE 1000 MG TUBE ×2 (08:28→17:17)
[2024-04-13 08:34] LABS: Glucose - Point of Care 61 mg/dl (70-99)
[2024-04-13] MEDS: NSS (PRESERVATIVE FREE) 10 ML IV (08:35)
[2024-04-13] MEDS: NOVOLOG FLEXPEN-LOW RESISTANCE SC ×2 (08:35→16:46)
[2024-04-13] MEDS: LIPITOR 40 MG TUBE (08:35)
[2024-04-13] MEDS: FEOSOL 325 MG TUBE (08:35)
[2024-04-13] MEDS: PROTONIX IV 40 MG IV (08:36)
[2024-04-13] MEDS: COREG 6.25 MG TUBE ×2 (08:42→20:03)
[2024-04-13] MEDS: TRIMOX/AMOXIL 500 MG TUBE (08:42)
[2024-04-13 08:54] LABS: Glucose - Point of Care 83 mg/dl (70-99)
--- NOTE | 2024-04-13 09:14 | W.PN.HOSP.TC ---
Addendum entered and electronically signed by Cat Frances MD 04/13/24 17:30:
Discharge
. Hospice eval at [facility]
Total time spent for evaluating and discharge over 50 min
Addendum entered and electronically signed by Cat Frances MD 04/13/24 15:32:
Second visit with patient's at bedside. He feels that she is mostly close to her baseline. He also admits that she calls out sometimes sometimes he she states his name. He realizes that this is a second admission where she almost needed a
PEG tube. We discussed about goals of her care. We also discussed about the quality of her life at this point. He realizes that. He is interested in communicating with hospice to see if this would be something he would want for his . We
have placed a consult.
Dobbhoff tube was removed in its entirety as the patient is now able to take p.o.
We will change her insulin back to 10 units of Lantus and metformin p.o To be continued. .will not use NovoLog AC. Just sliding scale would be good enough as her p.o. intake may be variable.
Total time spent over 50 min
Addendum entered and electronically signed by Cat Frances MD 04/13/24 15:30:
I personally performed a history and physical exam of the patient and discussed management with the resident. I reviewed the resident's note and agree with the documented findings and plan of care HPI/CC except for changes
2 visits to the patient's room today. First visit was during rounds that she appeared to be awake and calling out. Patient could not give me a reason. Would calm down when she is distracted. Per nursing she is tolerating diet and enjoying her
meals.
Exam unremarkable except for the wounds which seem to be stable
Original Note:
Today's Communication/Plan
-
Goals of care discussion, potential discharge
Assessment / Plan
Assessment / Plan
1. #Septic shock
-resolved, patient afebrile, blood pressures within normal limits
-Chest x-ray did not show any clear signs of pneumonia
-blood culture neg, 1 set ordered
-Foot x-ray did not show any overt osteomyelitis
-Required small dose of Levophed, off of it now
-Source is still unclear, podiatry consulted for nonhealing wounds on feet and potential subcutaneous emphysema seen on x-ray
-Podiatry said that wound is very unlikely source, does not believe that a bone biopsy is warranted as there is no local response
-Patient was not a candidate for MRI due to her mentation status and ICD placement, MRI could not scan her
#Enterococcal urinary tract infection
-Resolved
-Urinalysis shows 11-15 WBC, +1 leukocyte esterase
-Urine culture growing Enterococcus species
-Has received empiric Unasyn 3 g IV every 6 hours, day 4
-Status post 2 days of ceftriaxone
-Infectious disease started patient on oral amoxicillin for 3 days total
2. TME
Dementia with behavioral problems
Dysphagia
-Speech therapy cleared patient for pills and crushed applesauce if needed.
-patient awake and morning episodically, not answering any questions -Per family this is baseline.
-patient family interested in PEG tube if needed. Discussed poor prognosis although patient family remains hopeful that patient will improve as she has done this in the past. Patient truly qualifies for hospice with end-stage dementia/failure to
thrive/multiple decubitus wound.
-Goals of care discussion will continue with family
-GI explained that even with the PEG tube aspiration risk still remains and it would not improve quality of life due to her advanced dementia
- NG tube was removed and patient was cleared by speech and swallow to eat on IDDM 4 diet.
-Conversation was had with regarding hospice and he was willing to hear out case management regarding hospice options
-CM consult, hospice
3. Acute hypernatremia
-resolved
-Sodium 138 this a.m.
-Secondary to volume depletion/decreased oral intake with dementia
-Got D5 water in ICU
-Also got started on tube feed with free water flushes
4. Multiple pressure injuries
-Diffuse multiple pressure injury of stage I and II over both heel/buttocks
-Buttocks wound is a stage I pressure ulcer
-wound care evaluated
-Podiatry consulted
-Podiatry recommends no further workup for potential osteomyelitis, patient unable to undergo MRI due to ICD.
-As well as there being no local response they believe a bone biopsy/MRI is not warranted, considering patient's state of health
5. Left eye conjunctivitis
-Some crusting visible
-Eyedrops prn
6. Acute kidney injury prerenal
-resolved with IVF
7. Paroxysmal atrial fibrillation with RVR
-Patient have Dobbhoff tube placed and able to be getting carvedilol and diltiazem through tube
-Not on anticoagulation with increased fall risk and advanced age likely
8. NIDDM
-Regimen changed to low resistance ISS and 3U q6 insulin with lantus 15U HS
-will increase lantus/standing novolog dose if needed
History of V-fib/torsades status post ICD
Coronary artery disease
Presumed diastolic HF - EF 60% in February 15
History of CVA
Essential hypertension
GERD
History of upper GI bleeding secondary to erosive esophagitis
Hypercholesterolemia
Hypothyroidism
Advanced dementia with behavioral disturbances
N.p.o.
DNR/DNI
DVT prophylaxis�heparin
Anticipated Discharge: Within 24 hours
Subjective/Interval History
-
Date of Service: April 13, 2024
Pt mentation remains unchanged, Alert but not oriented, communicates through moans
Pt hypoglycemic in am, resolved with orange juice and mealtime insulin was held
Objective Data
-
Labs:
Laboratory Results
04/13/24
05:50
WBC 8.8
Hgb 9.2 L
Hct 29.3 L
Plt Count 292 D
Sodium 138
Potassium 4.4
Chloride 110 H
Carbon Dioxide 25
BUN 20 H
Creatinine 0.6
Glucose 79
Calcium 9.4
Vital Signs:
Vital Signs
Temp Pulse Resp BP Pulse Ox
98.3 F 78 19 103/52 95
04/13/24 07:41 04/13/24 08:26 04/13/24 07:41 04/13/24 08:26 04/13/24 07:41
I&O
04/12/24 04/13/24 04/14/24
06:59 06:59 06:59
Intake Total 650 / 650 850 / 850
Balance 650 / 650 850 / 850
Review of Systems
-
Unable to obtain full review of systems at this time due to: Dementia and Patient Non-verbal
Physical Exam
-
General: Appears Chronically Ill
Cardiac: Regular Rhythm and S1/S2
GI: Soft, Nondistended and Normal Bowel Sounds
Skin: Dry and Decubitus Ulcers
Neuro: Awake; Negative Alert, Oriented or AO x 3
Psych: Apparent Dementia
Data Reviewed
-
Labs: Labs Reviewed by me and Discussed with Physician
[2024-04-13] MEDS: NOVOLOG FLEXPEN SC (09:20)
[2024-04-13 11:00] LABS: Glucose - Point of Care 158 mg/dl (70-99)
[2024-04-13 12:49] LABS: Glucose - Point of Care 161 mg/dl (70-99)
--- NOTE | 2024-04-13 12:52 | W.PN.ID1 ---
Date of Service
Date of Service: April 13, 2024
Today's Communication
Sign off.
Assessment / Plan
Clinical sepsis
�resolved
UTI / pyuria / bactieuria with enterococci
Toxic metabolic encephalopathy/delirium/confusion
Multiple pressure injuries
Left first met head ulceration
Other conditions
Coronary artery disease
Presumed diastolic HF - EF 60% in February 15
History of CVA
Essential hypertension
GERD
History of upper GI bleeding secondary to erosive esophagitis
Hypercholesterolemia
Hypothyroidism
Advanced dementia
Recommendations
S/P course of amoxicillin. Continue off abx.
Local care to foot wounds.
Clinically, patient appears palliative care/hospice appropriate, as doubt there is any significant improvement to quality of life that could be anticipated.
Little more to offer at this point.
Will see again at your request.
����������������������������������������������������������
Chief Complaint
-: Other (Left foot ulceration)
Subjective / Review of Systems
Review of Systems: No Fever
Vital Signs / Physical Exam
Vital Signs
Vital Signs
Temp Pulse Resp BP Pulse Ox
98.3 F 78 19 103/52 95
04/13/24 07:41 04/13/24 08:26 04/13/24 07:41 04/13/24 08:26 04/13/24 07:41
Physical Exam
Constitutional: Chronically Ill and Non-toxic
Eyes: Sclera Anicteric
Pulmonary: Non Labored
Wound: Other (foot wounds dressed. No periwound erythema.)
Neurological: Awake
Psychological: Confused
Objective Data
Lab Data
Lab Results
04/13/24 05:50
04/13/24 05:50
PT 15.8 Sec (11.4-14.6) H 04/06/24 03:10
INR 1.25 07/12/24 03:10
APTT 40.3 Sec (23.4-35.0) H 04/04/24 19:05
Estimated Creat Clear 56 ml/min 04/13/24 05:50
Lactic Acid Cancelled 04/05/24 00:42
Total Bilirubin 0.6 mg/dl (0.2-1.3) 04/05/24 03:48
AST 20 U/L (14-36) 04/05/24 03:48
ALT 15 U/L (0-35) 04/05/24 03:48
Alkaline Phosphatase 65 U/L (38-126) 04/05/24 03:48
Most recent labs reviewed.
Micro Results:
04/04/24 15:27 Blood Culture - Final
Blood/Venous No Growth - Final Report
04/04/24 15:27 Urine Culture - Final
Urine Enterococcus faecalis
04/05/24 00:21 MRSA Screen - Final
Nose No Methicillin Resistant Staphylococcus aureus isolated.
Imaging
CT Scan: AP 04/04/24- No acute pathology of the abdomen or pelvis identified. Incidental possible left adrenal mass versus more likely gastric diverticulum versus less likely exophytic left renal mass. This should further be evaluated by a nonurgent
repeat CT examination of the abdomen with oral and IV contrast. Moderate fecal material throughout the colon.
Chest X-Ray: 04/04/24- No acute disease of the chest
11/17/23 ABIs: Left VANI on calculable; left TBI 0.42 Left toe brachial index measures 0.42. Infrapopliteal disease is suspected based on spectral Doppler waveform analysis. No Doppler signal could be located in the distribution of the left
posterior tibial artery. Please see full dictation for additional detail.
[2024-04-13] MEDS: TYLENOL ORAL SOLUTION 650 MG PO ×2 (13:04→23:49)
[2024-04-13] MEDS: NOVOLOG FLEXPEN-LOW RESISTANCE 1 UNITS SC (13:06)
[2024-04-13] MEDS: NOVOLOG FLEXPEN 3 UNITS SC (13:07)
--- NOTE | 2024-04-13 15:18 | CM ---
Addendum entered by Gladys Bajwa 04/13/24 15:44:
Referral for hospice sent in [facility]
Plan - anticipate return to [place] with hospice care
Original Note:
Case management following for d/c planning
Asked to speak with pts regarding hospice evaluation
Spoke with Mr Duarte - discussed hospice care and offered choice
Requesting [facility]
TT sent to Kianna Ruvalcaba - Hospice Nurse
Pt from [facility]
--- NOTE | 2024-04-13 15:26 | HOSPNOTE ---
Spoke with spouse Ed and discussed hospice and the philosophy. The spouse would like to discuss with sons and will let us know. He is leaning towards hospice services. The plan would be return to [facility] with hospice. I left my number with
spouse and he will call us back with a decision.
[2024-04-13 15:51] VITALS: BP 96/53
[2024-04-13] MEDS: CARDIZEM TUBE (16:08)
[2024-04-13 16:46] LABS: Glucose - Point of Care 116 mg/dl (70-99)
[2024-04-13] MEDS: PROTONIX 40 MG PO (20:03)
[2024-04-13 21:24] LABS: Glucose - Point of Care 86 mg/dl (70-99)
[2024-04-13] MEDS: ZYPREXA 10 MG TUBE (21:26)
[2024-04-13] MEDS: LANTUS 0.1 UNITS SC (21:26)
[2024-04-13] MEDS: REMERON 15 MG TUBE (21:26)
[2024-04-13 23:33] VITALS: BP 117/72
[2024-04-14] MEDS: CARDIZEM 30 MG TUBE ×2 (04:51→08:48)
[2024-04-14] MEDS: SYNTHROID 137 MCG TUBE (04:51)
--- NOTE | 2024-04-14 05:22 | PTCARENOTE ---
Pt awake and moaning most of the night. Pt states over and over again ' Im going to '. Emotional support provided. Will continue to monitor.
[2024-04-14 07:00] VITALS: BP 119/61
[2024-04-14 08:29] LABS: Glucose - Point of Care 94 mg/dl (70-99)
[2024-04-14] MEDS: NOVOLOG FLEXPEN-LOW RESISTANCE SC (08:45)
[2024-04-14] MEDS: DEPAKENE 250 MG TUBE (08:46)
[2024-04-14] MEDS: COREG 6.25 MG TUBE (08:47)
[2024-04-14] MEDS: LIPITOR 40 MG TUBE (08:47)
[2024-04-14] MEDS: FEOSOL 325 MG TUBE (08:47)
[2024-04-14] MEDS: GLUCOPHAGE 1000 MG TUBE (08:48)
[2024-04-14] MEDS: HEPARIN 5000 UNITS SC (08:48)
[2024-04-14] MEDS: PROTONIX 40 MG PO (08:48)
--- NOTE | 2024-04-14 08:50 | W.PN.HOSP.TC ---
Addendum entered and electronically signed by Cat Frances MD 04/14/24 12:51:
personally performed a history and physical exam of the patient and discussed management with the resident. I reviewed the resident's note and agree with the documented findings and plan of care HPI/CC.
She is more alert and was able to say a few words and answer
Still calling out at times with no reason. Denies any pain
Patient is for planned discharge today to [facility] on hospice
Discussed with nursing
Total discharge condition time more than 30 minutes.
Original Note:
Today's Communication/Plan
-
Likely discharge to [facility] today
Assessment / Plan
Assessment / Plan
1. #Septic shock
-resolved, patient afebrile, blood pressures within normal limits
-Chest x-ray did not show any clear signs of pneumonia
-blood culture neg, 1 set ordered
-Foot x-ray did not show any overt osteomyelitis
-Required small dose of Levophed, off of it now
-Source is still unclear, podiatry consulted for nonhealing wounds on feet and potential subcutaneous emphysema seen on x-ray
-Podiatry said that wound is very unlikely source, does not believe that a bone biopsy is warranted as there is no local response
-Patient was not a candidate for MRI due to her mentation status and ICD placement, MRI could not scan her
#Enterococcal urinary tract infection
-Resolved
-Urinalysis shows 11-15 WBC, +1 leukocyte esterase
-Urine culture growing Enterococcus species
-Has received empiric Unasyn 3 g IV every 6 hours, day 4
-Status post 2 days of ceftriaxone
-Status post oral amoxicillin for 3 days total
2. TME
Dementia with behavioral problems
Dysphagia
-Speech therapy cleared patient for pills and crushed applesauce if needed.
-Pt awake and responds to questions, states she is hungry, not in pain and had trouble sleeping -Per family this is baseline. This is a vast improvement from previously.
-Patient remains high risk for aspiration, aspiration precautions initiated, chin tuck and small sips encouraged
- NG tube was removed and patient was cleared by speech and swallow to eat on IDDM 4 diet.
-Conversation was had with regarding hospice and he was willing to hear out case management regarding hospice options
-Family decided to proceed with hospice, GOC discussion to continue at SNF
-Hospice nurse on board, CM hospice on board
3. Acute hypernatremia
-resolved
-Sodium 138 this a.m.
-Secondary to volume depletion/decreased oral intake with dementia
-Got D5 water in ICU
-Also got started on tube feed with free water flushes
4. Multiple pressure injuries
-Diffuse multiple pressure injury of stage I and II over both heel/buttocks
-Buttocks wound is a stage I pressure ulcer
-wound care evaluated
-Podiatry consulted
-Podiatry recommends no further workup for potential osteomyelitis, patient unable to undergo MRI due to ICD.
-As well as there being no local response they believe a bone biopsy/MRI is not warranted, considering patient's state of health
5. Left eye conjunctivitis
-Some crusting visible
-Eyedrops prn
6. Acute kidney injury prerenal
-resolved with IVF
7. Paroxysmal atrial fibrillation with RVR
-Patient have Dobbhoff tube placed and able to be getting carvedilol and diltiazem through tube
-Not on anticoagulation with increased fall risk and advanced age likely
8. NIDDM
-Regimen changed to low resistance ISS and 3U q6 insulin with lantus 15U HS
-will increase lantus/standing novolog dose if needed
History of V-fib/torsades status post ICD
Coronary artery disease
Presumed diastolic HF - EF 60% in February 15
History of CVA
Essential hypertension
GERD
History of upper GI bleeding secondary to erosive esophagitis
Hypercholesterolemia
Hypothyroidism
Advanced dementia with behavioral disturbances
N.p.o.
DNR/DNI
DVT prophylaxis�heparin
Anticipated Discharge: Today
Subjective/Interval History
-
Date of Service: April 14, 2024
Patient actually conversant today, has been eating well per nursing
Is moaning but reports no pain
Patient reports she could not sleep
Objective Data
-
Vital Signs:
Vital Signs
Temp Pulse Resp BP Pulse Ox
97.8 F 131 20 117/72 92
04/13/24 23:33 04/13/24 23:47 04/13/24 23:33 04/13/24 23:47 04/13/24 23:33
I&O
04/13/24 04/14/24 04/15/24
06:59 06:59 06:59
Intake Total 850 / 850 1355 / 1355
Balance 850 / 850 1355 / 1355
Review of Systems
-
Unable to obtain full review of systems at this time due to: Dementia and Patient Non-verbal
Physical Exam
-
General: Appears in Distress and Appears Chronically Ill; Negative Pain
Respiratory: Clear to Auscultation
Cardiac: Regular Rhythm and S1/S2
GI: Soft, Nontender, Nondistended and Normal Bowel Sounds
Neuro: Awake and Alert; Negative Oriented or AO x 3
Psych: Negative Intact Judgement/Insight
Data Reviewed
-
Labs: Labs Reviewed by me and Discussed with Physician
--- NOTE | 2024-04-14 09:31 | HOSPNOTE ---
Spouse reached out late last night to state that he would like to proceed with hospice services. Attending and CM updated. Plan will be to return to [facility] today with hospice services. Awaiting transport time.
--- NOTE | 2024-04-14 09:45 | CM ---
Addendum entered by Gladys Bajwa 04/14/24 11:24:
Transport arranged for return for 3:15PM
Pts aware
Facility aware
Original Note:
Case management following for d/c planning
Pt for discharge to [facility] -
will sign onto hospice when returns to [facility] per Hospice nurse
Notified [facility] - aware pt to return and will sign onto hospice
Plan - return to [facility]
R - [phone]
F - [phone]
[2024-04-14 11:35] LABS: Glucose - Point of Care 196 mg/dl (70-99)
[2024-04-14] MEDS: NOVOLOG FLEXPEN-LOW RESISTANCE 1 UNITS SC (11:41)
[2024-04-14] MEDS: CARDIZEM 30 MG PO (12:16)
[2024-04-14 15:00] VITALS: BP 119/76
== END 2024-04-14 15:30 | DRG 871 ==
LOC: 3 WEST ACU 17:32
PROVIDERS: Hospitalist; Radiology Diagnostic Radiology; ADMITTING PHYSICIAN Hospitalist; ATTENDING PHYSICIAN Hospitalist; CONSULT PHYSICIAN Podiatrist Foot & Ankle Surgery; CONSULT PHYSICIAN Surgery Vascular Surgery; EMERGENCY PHYSICIAN Emergency Medicine; FAMILY PHYSICIAN Internal Medicine; OTHER PHYSICIAN Internal Medicine; OTHER PHYSICIAN Internal Medicine Gastroenterology; OTHER PHYSICIAN Internal Medicine Infectious Disease
PROC: 0DH67UZ Insertion of Feeding Device into Stomach, Via Natural or Artificial Opening (ICD-10-PCS; 2024-04-05)
DX: A41.81 Sepsis due to Enterococcus (principal); E43 Unspecified severe protein-calorie malnutrition; G92.8 Other toxic encephalopathy; I49.01 Ventricular fibrillation; K21.01 Gastro-esophageal reflux disease with esophagitis, with bleeding; R65.21 Severe sepsis with septic shock; I42.9 Cardiomyopathy, unspecified; N39.0 Urinary tract infection, site not specified; E87.0 Hyperosmolality and hypernatremia; N17.9 Acute kidney failure, unspecified; F02.C18 Dementia in other diseases classified elsewhere, severe, with other behavioral disturbance; I50.32 Chronic diastolic (congestive) heart failure; Z68.1 Body mass index [BMI] 19.9 or less, adult; E87.20 Acidosis, unspecified; F05 Delirium due to known physiological condition; I48.0 Paroxysmal atrial fibrillation; I25.10 Atherosclerotic heart disease of native coronary artery without angina pectoris; I11.0 Hypertensive heart disease with heart failure; G20.A1 Parkinson's disease without dyskinesia, without mention of fluctuations; H10.9 Unspecified conjunctivitis; E78.00 Pure hypercholesterolemia, unspecified; E03.9 Hypothyroidism, unspecified; K57.30 Diverticulosis of large intestine without perforation or abscess without bleeding; R62.7 Adult failure to thrive; F32.A Depression, unspecified; R13.10 Dysphagia, unspecified; K59.00 Constipation, unspecified; D50.9 Iron deficiency anemia, unspecified; L89.151 Pressure ulcer of sacral region, stage 1; E11.9 Type 2 diabetes mellitus without complications; Z66 Do not resuscitate; Z86.73 Personal history of transient ischemic attack (TIA), and cerebral infarction without residual deficits; Z95.810 Presence of automatic (implantable) cardiac defibrillator; Z88.0 Allergy status to penicillin; Z79.890 Hormone replacement therapy; Z79.4 Long term (current) use of insulin; Z79.84 Long term (current) use of oral hypoglycemic drugs; Z79.82 Long term (current) use of aspirin; Z87.19 Personal history of other diseases of the digestive system
CPT/HCPCS: 51701; 70450; 71045; 73620; 74018; 74176; 74230; 80048; 80053; 81003; 81015; 82962; 83036; 83605; 83735; 84100; 84443; 85025; 85027; 85610; 85730; 87040; 87070; 87077; 87086; 87186; 92526; 92610; 92611; 93005; 96361; 96374; 99291

== ENCOUNTER 2024-04-23 16:46 | Inpatient (IN) | payer MEDICARE, OTHER, SELFPAY ==
[2024-04-23] VITALS (11 sets, daily range): BP systolic 114–165; BP diastolic 82–99; BMI 16.7
[2024-04-23] MEDS: TYLENOL/FEVERALL 650 MG RECTAL (14:41)
[2024-04-23] MEDS: NSS 500 IV ×3 (14:42→17:32)
[2024-04-23 14:56] LABS: % Basophils 0.5 % (0-2); % Lymphocytes 8.6 % (20.5-51.1); % Monocytes 5.5 % (1.7-9.3); % Neutrophils 84.4 % (42.2-75.2); Absolute Basophils 0.1 10^3/uL (0-0.2); Absolute Immature Granulocytes 0.2 10^3/uL (0-0.05); Absolute Lymphocytes 1.3 10^3/uL (1.2-3.4); Absolute Monocytes 0.8 10^3/uL (0.1-0.6); Absolute Neutrophils 12.7 10^3/uL (1.4-6.5); Hematocrit 35.3 % (37.0-47.0); Hemoglobin 10.6 g/dL (12.0-16.0); Mean Corpuscular Hgb 24.4 pg (27.0-31.0); Mean Corpuscular Volume 81.1 fL (81.0-99.0); Mean Platelet Volume 12.1 fL (7.4-10.4); Nucleated Red Blood Cells % 0 %; Platelet Count 419 10^3/uL (130-400); Red Blood Cell Count 4.35 10^6/uL (4.20-5.40); Red Cell Dist. Width 20.3 % (11.5-14.5)
[2024-04-23 14:57] LABS: Urine Albumin Trace (Neg - Trace); Urine Bilirubin 1+ (Negative); Urine Character Slightly Cloudy (Clear); Urine Color Yellow; Urine Glucose 3+ (Negative); Urine Ketone Trace (Negative); Urine Leukocyte 1+ (Negative); Urine Nitrite Negative (Negative); Urine Occult Blood 3+ (Negative); Urine Urobilinogen Negative (Neg - 1+)
[2024-04-23 15:14] LABS: Urine Bacteria Many (Negative)
[2024-04-23 15:24] LABS: AST (SGOT) 26 U/L (14-36); Albumin 3.3 g/dl (3.5-5.0); Alkaline Phosphatase 91 U/L (38-126); Blood Urea Nitrogen 26 mg/dl (7-17); Calcium 10.6 mg/dl (8.4-10.2); Carbon Dioxide 13 mmol/L (22-30); Chloride 110 mmol/L (98-107); Glucose 615 mg/dl (70-99); Potassium 6.3 mmol/L (3.5-5.1); Sodium 143 mmol/L (135-145); Total Bilirubin 0.5 mg/dl (0.2-1.3); Total Protein 6.2 g/dl (6.3-8.2); eGFR 58.02
[2024-04-23 15:30] LABS: ALT (SGPT) 31 U/L (0-35)
--- NOTE | 2024-04-23 15:45 | ED.GENMED ---
History of Present Illness
General
Chief Complaint: Heart Rate Problem
Source: family
Exam Limitations: clinical condition
Time Seen by Provider: 04/23/24 14:27
History of Present Illness
History of Present Illness:
79-year-old female with history of advanced dementia, A-fib, septic shock who presents with tachycardia. Found to be febrile. Patient is unable to contribute to her own history. states that she was recently hospice but he pulled her off.
He states that she was improving when she got back after her recent admission. She was recently discharged on 04/14
Past History
Past History
ED Past Medical History: Arrthythmia (Paroxysmal atrial fibrillation; V-fib with torsades), CAD, CHF (Cardiomyopathy), CVA, GERD, HTN, Hypercholesterolemia, IDDM, Hypothyroidism, Psychiatric and Other (Chronic foot wound, osteomyelitis)
ED Past Surgical History: Cardiac (AICD 2015)
Social History
Personal:
Living: [facility]
Family History
Family History: Other (Noncontributory)
Phy Exam
Physical Exam
Physical Exam:
CONSTITUTIONAL Patient alert . ill-appearing. Vital signs reviewed. Febrile, tachycardic
HEAD atraumatic, normocephalic.
EYES eyelids normal to inspection, Extraocular muscles intact, Conjunctiva normal, Sclera normal.
NECK normal range of motion, Trachea midline, no jugular venous distention.
RESPIRATORY CHEST No respiratory distress noted, Chest expansion equal, Bilateral breath sounds clear.
CARDIOVASCULAR irregularly irregular and tachycardic
ABDOMEN abdomen nontender, Bowel sounds normal. No distention.
UPPER EXTREMITY range of motion normal, Motor strength normal, no cyanosis, no edema.
LOWER EXTREMITY no edema, contracted, ulcerative lesion that is malodorous to the base of the left MTP joint. She has another wound to the medial aspect of the right foot.
NEURO awake but nonverbal.
Course
Orders/Labs/Results
Orders:
Orders
04/23/24 14:20
Electrocardiogram (*1) Urgent
Reason for Study: Other
Other Reason for Exam: Possible Sepsis
Cardiac Monitoring- Treatment ONCE
EKG- Treatment ONCE
IV Insert/Care/Rem.- Treatment PRN
Straight cath- Treatment ONCE
O2 Therapy [RESP] Urgent
Titrate/Wean O2 to maintain O2 sat greater than (%): 93
Special Instructions: TO MAINTAIN CONTINUOUS O2 SATS > OR = 93%
Pulse Ox/cont/shift [RESP] Urgent
Quantity: 1
Special Instructions: CONTINUOUS
04/23/24 14:39
Acetaminophen [Tylenol/Feverall] 650 mg .ROUTE .STK-MED ONE
04/23/24 14:40
Acetaminophen [Tylenol/Feverall] 650 mg RECTAL NOW STA
04/23/24 14:41
0.9% Sodium Chloride 500 ml [Nss] 500 ml IV BOLUS
04/23/24 14:42
0.9% Sodium Chloride 500 ml [Nss] 500 ml IV BOLUS
04/23/24 14:47
Complete Blood Count/With Diff Urgent
Comprehensive Metabolic Panel Urgent
Lactic Acid Q4H
Comment: ON ICE, CANCEL 2ND ORDER IF FIRST LACTIC ACID LEVEL <2
Urinalysis Reflex To Culture Urgent
Date Specimen was Collected: 04/23/24
Time Specimen was Collected: 14:20
Urine Microscopic Reflex Cult Urgent
Urine Culture Urgent
KEVIN Source: U
Specimen Description:
Date Specimen was Collected: 04/23/24
Time Specimen was Collected: 14:20
04/23/24 15:17
Cefepime HCl [Maxipime] 1,000 mg IV NOW STA
Vancomycin 1 Gram/200 ml [Vancocin] 1 gram in 200 ml IV NOW
04/23/24 15:31
Bedside Glucose- Treatment Q1H
IV Insert/Care/Rem.- Treatment PRN
04/23/24 15:42
CR Chest Portable - 1 View Urgent
Comment:
Reason For Exam: fever
Reason Study Needs to be Portable: Patient Unstable
04/23/24 15:46
Midline IV As Directed
04/23/24 16:32
Admit/Transfer Patient As Directed
Co-Sign Provider:
Level of Care: Inpatient admission
Assign to:: ICU
Physician / Group: tesha
Diagnosis: DKA, sepsis
Reason for Hospitalization: DKA, sepsis
Expected length of stay greater than two midnights?: Yes
ELOS- Estimated Length of Stay in days: 2
I certify the patient meets the requirements for IP care: Yes
Code Status As Directed
Resuscitation Status: Do not resuscitate
Reached after discussion with pt or family/Healthcare POA: Yes
DNR Bracelet Application ONCE
04/23/24 16:44
Blood Culture Urgent
KEVIN Source: Blood/Venous
Specimen Description:
04/23/24 17:06
Basic Metabolic Panel Q2H
Phos [Phosphorus] Routine
04/23/24 18:30
Lactic Acid Q4H
Comment: ON ICE, CANCEL 2ND ORDER IF FIRST LACTIC ACID LEVEL <2
04/23/24 19:45
Basic Metabolic Panel Q2H
Abnormal Lab Results
04/23/24
14:47
WBC 15.0 H 10^3/uL
(4.8-10.8)
Hgb 10.6 L g/dL
(12.0-16.0)
Hct 35.3 L %
(37.0-47.0)
MCH 24.4 L pg
(27.0-31.0)
MCHC 30.0 L g/dL
(33.0-37.0)
RDW 20.3 H %
(11.5-14.5)
Plt Count 419 H 10^3/uL
(130-400)
MPV 12.1 H fL
(7.4-10.4)
Abs Immat Gran (auto) 0.2 H 10^3/uL
(0-0.05)
Absolute Neuts (auto) 12.7 H 10^3/uL
(1.4-6.5)
Absolute Monos (auto) 0.8 H 10^3/uL
(0.1-0.6)
Immature Gran % 1.0 H %
(0-0.5)
Neutrophils % 84.4 H %
(42.2-75.2)
Lymphocytes % 8.6 L %
(20.5-51.1)
Potassium 6.3 H* mmol/L
(3.5-5.1)
Chloride 110 H mmol/L
(98-107)
Carbon Dioxide 13 L* mmol/L
(22-30)
BUN 26 H mg/dl
(7-17)
Glucose 615 H* mg/dl
(70-99)
Lactic Acid 11.6 H* mmol/L
(0.7-2.0)
Calcium 10.6 H mg/dl
(8.4-10.2)
Total Protein 6.2 L g/dl
(6.3-8.2)
Albumin 3.3 L g/dl
(3.5-5.0)
Urine Ketones Trace A
(Negative)
Ur Occult Blood Reflex 3+ A
(Negative)
Urine Bilirubin 1+ A
(Negative)
Leukocyte Esterase Rfl 1+ A
(Negative)
Urine RBC 11-15 A /HPF
(0-2)
Urine WBC (Reflex) 11-15 A /HPF
(0-5)
Urine Bacteria (Reflex) Many A
(Negative)
Urine Glucose 3+ A
(Negative)
07/29/24 14:47
04/23/24 14:47
Vital Signs
Initial and Last Documented VS:
Initial Vital Signs
Pulse
165
04/23/24 14:46
Last Documented Vital Signs
Temp Pulse Resp BP Pulse Ox
101.5 F H 155 30 163/94 96
04/23/24 15:17 04/23/24 18:01 04/23/24 18:01 04/23/24 18:01 04/23/24 17:24
MDM/Problems Addressed
MDM/Problems Addressed:
Acute hyperglycemia, acute DKA, acute severe sepsis, acute urinary tract infection, infected foot wound
*Pulse Oximetry
Patient hypoxic: no
*EKG
Interpreted by ED Provider?: Yes
Interpretation: abnormal
Rate: tachycardiac
Rhythm: a-fib
[place]: left axis deviation
Ischemia: non-specific ST changes
*Twisting Operator Interpretation
Rate: tachycardiac
Rhythm: a-fib
*Critical Care Note
Total Time (30-74mins, 75-104mins- exclusive of procedures): 65 minutes
Data Reviewed
Review of Other/Old Records Reveals: Discharge Summary (Discharge summary from March reviewed)
Source: family
Prescriptions/Medications Considered But Not Given:
Considered Zosyn but reports an adverse response to penicillin but not anaphylaxis
Patient Management
Discussion with other providers: Hospitalist
Escalation/DeEscalation of care consider admission/obs:
79-year-old female who presents with tachycardia. Found to be febrile. Also appears to have hyperglycemia with suspected DKA. Treated with IV insulin, IV fluids, IV antibiotics. Previous cultures reviewed showing Enterococcus susceptible to
vancomycin
ED Attending Note
-
Portions of this chart may have been created with voice recognition software.� Occasional wrong word or��sound alike� substitutions may have occurred due to the inherent limitations of voice recognition software.
Discharge Plan
Departure
Patient Disposition: Admit
Date of Disposition: 04/23/24
Time of Disposition: 15:50
Admit to: IMU
Presentation/result/management discussed w/ accepting MD/DO: Hospitalist
Discharge Problem:
Diabetic keto-acidosis, Diabetic foot infection, Atrial fibrillation with RVR, Septic shock, Acidosis, lactic
Interventions
Interventions:
*Risk Screen - Suicide Last Done: 04/23/24 14:21
*General Assessment Last Done: 04/23/24 14:21
*Neglect/Abuse Screening Last Done: 04/23/24 14:21
ED- Cardiac Assessment Last Done: 04/23/24 14:21
ED- Pulmonary Assessment Last Done: 04/23/24 17:24
[2024-04-23 16:19] LABS: Lactic Acid 11.6 mmol/L (0.7-2.0)
--- NOTE | 2024-04-23 16:41 | HPS.HSE ---
Family Physician
-
Family Physician: Tom Mehta
Chief Complaint
-
rapid heart rate
History of Present Illness
79-year-old female past medical history of advanced dementia, paroxysmal atrial fibrillation, ventricular fibrillation with history of torsades with ICD, coronary artery disease, diastolic heart failure, prior CVA, diabetes, essential hypertension,
GERD, upper GI bleeding secondary to erosive esophagitis, hypercholesterolemia, hypothyroidism, Enterococcus UTI, pressure injuries, presenting from [facility] for tachycardia. Patient was apparently in normal health even until lunchtime today.
No urinary symptoms or diarrhea or vomiting noted. No further history can be obtained.
Patient was just discharged on 04/14 after being admitted for sepsis secondary to UTI secondary to Enterococcus. There is also suspicion for left ankle osteomyelitis. Patient was seen by podiatry and ID and it was decided that patient would not
benefit from MRI as there is low suspicion for osteomyelitis and she could not get MRI due to ICD and dementia. Goals of care discussion was eventually discussed with family and patient and family agreed to hospice and comfort care.
Since going back to [facility], son has revoked hospice. At baseline patient can just call out to son and not have conversation.
Medical History
Past Medical History
Past Medical History: Reports Other (advanced dementia, paroxysmal atrial fibrillation, ventricular fibrillation with history of torsades with ICD, coronary artery disease, diastolic heart failure, prior CVA, diabetes, essential hypertension, GERD,
upper GI bleeding secondary to erosive esophagitis, hypercholesterolemia, hypothyroidism)
Past Surgical History: Reports Other (Cardiac (AICD 2016))
Social History
Tobacco: Non-smoker
Alcohol: None
Drug: None
Family History
Family History: Not pertinent
Allergies / Home Medications
Allergies reflects when Allergies were last updated in [facility].
Home Medications with original date entered in [facility]
Allergy/Medication List:
Allergies
Allergy/AdvReac Type Severity Reaction Status Date / Time
Penicillins AdvReac Nausea Verified 07/15/24 17:19
Home Medications
docusate sodium 100 mg tablet 100 mg PO BID Constipation 02/20/23
mirtazapine 15 mg tablet 15 mg PO HS Depression 02/20/23
melatonin 5 mg tablet 5 mg PO HS Sleep 09/21/23
olanzapine 15 mg tablet (Zyprexa) 15 mg PO HS Mental Health/Anxiety 09/21/23
acetaminophen 650 mg rectal suppository 650 mg [place] Q6H PRN mild pain/fever 04/23/24
bisacodyl 5 mg tablet,delayed release 10 mg PO DAILYPRN PRN constipation 04/23/24
divalproex 250 mg tablet,delayed release (Depakote) 250 mg PO BID 04/23/24
hyoscyamine sulfate 0.125 mg/mL oral drops 1 ml PO Q4HPRN PRN secretions 04/23/24
lorazepam 2 mg/mL oral concentrate 0.25 mg PO Q2HPRN PRN agitation 04/23/24
morphine 20 mg/5 mL (4 mg/mL) oral solution 1 mg PO Q3HPRN PRN severe pain 04/23/24
omeprazole 20 mg tablet,delayed release 20 mg PO BID 04/23/24
prochlorperazine maleate 10 mg tablet 10 mg PO Q6HPRN PRN nausea 04/23/24
Review of Systems
-
History Source: [facility]
A 12 point ROS was completed and negative except as noted: No
Physical Exam
Vital Signs
Vital Signs
Temp Pulse BP Pulse Ox
101.5 F H 156 118/82 96
04/23/24 15:17 04/23/24 15:15 04/23/24 15:00 04/23/24 15:15
Physical Exam
General: Well Developed, Well Nourished and No Apparent Distress
HEENT: NormoCephalic, Moist mucous membranes and Atraumatic
Respiratory: Clear
Cardiac: S1/S2 and Regular Rhythm; No Murmur or Rub
GI: Soft, Non Tender, Non Distended and Normal Bowel Sounds; No Organomegaly
Rectal: Deferred by Provider
Musculoskeletal: No Clubbing, No Cyanosis and No Edema
Skin: Other (left ankle ulcer ); No Rash
Neuro: Nonfocal/grossly intact
Laboratory Results
-
04/23/24 14:47
Laboratory Results
Lactic Acid 11.6 mmol/L (0.7-2.0) H* 04/23/24 14:47
Total Bilirubin 0.5 mg/dl (0.2-1.3) 04/23/24 14:47
AST 26 U/L (14-36) 04/23/24 14:47
ALT 31 U/L (0-35) 04/23/24 14:47
Alkaline Phosphatase 91 U/L (38-126) 04/23/24 14:47
Impression/Plan
-
IMPRESSION:
PLAN:
# Severe sepsis (fever, leukocytosis, tachycardia,) secondary to UTI + possible osteomyelitis of pressure injuries of left lower extremity
-Urinalysis slightly cloudy, 11-15 WBC, await urine culture
-Recent history of Enterococcus UTI
-Check blood culture
-IV fluids
-Vancomycin/Zosyn
-Patient was previously on hospice at the end of the prior hospitalization which has now been revoked
-N.p.o. and hold oral medications for now, resume level 4 diet pur�ed with thin liquids when able
# Lower ankle pressure ulcer/possible osteomyelitis
-Patient has multiple lower extremity pressure ulcers including left ankle ulcer possibly worse with possible underlying osteomyelitis, but due to patient's advanced dementia and intolerance of MRI further investigation was not pursued during last
admission
-wound care
# Diabetic ketoacidosis
# Anion gap metabolic acidosis secondaty to sepsis
# History of type 2 diabetes
-Accu-Cheks every hour
-BMP every 2 hours
-Check phosphorus
-Check VBG
-Blood sugar 600
-Half Normal saline without potassium
-Insulin drip
# Hyperkalemia
-IV fluids without potassium
-Hold potassium supplementation
#Corrected Hypernatremia
-Corrected sodium of 155
-Half-normal saline
# Hypercalcemia secondary to hypovolemia
-Monitor with IV fluids
#Atrial fibrillation with RVR secondary to fever/sepsis
-Continue oral diltiazem
-Avoid further rate control until adequately fluid resuscitated
History of Enterococcus UTI
History of ventricular fibrillation/torsades status post ICD
Coronary artery disease
-Continue aspirin, statin
Chronic HFpEF
-Continue Coreg
History of CVA
Essential hypertension
GERD
History of upper GI bleeding secondary to erosive esophagitis
-Continue Protonix, sucralfate
Chronic anemia
-Hemoglobin stable
Advanced dementia with behavioral problems
-Continue Depakote, mirtazapine, olanzapine, ativan
History of pressure injuries of heel/buttocks
Hypercholesterolemia
-Continue fenofibrate, statin
Hypothyroidism
DNR/DNI
N.p.o.
DVT prophylaxis�heparin
[2024-04-23] MEDS: MAXIPIME 1000 MG IV (16:47)
[2024-04-23 17:18] LABS: Glucose - Point of Care 448 mg/dl (70-99)
[2024-04-23] MEDS: VANCOCIN 200 IV (17:22)
[2024-04-23] MEDS: NOVOLIN R INSULIN INFUSION 100 IV (17:35)
[2024-04-23 17:37] LABS: Blood Urea Nitrogen 26 mg/dl (7-17); Calcium 9.4 mg/dl (8.4-10.2); Carbon Dioxide 16 mmol/L (22-30); Chloride 113 mmol/L (98-107); Estimated Creatinine Clearance 39 ml/min; Glucose 477 mg/dl (70-99); Phosphorus 4.6 mg/dl (2.5-4.5); Potassium 5.4 mmol/L (3.5-5.1); Sodium 141 mmol/L (135-145); eGFR > 60.00
[2024-04-23 17:39] LABS: Venous Blood Gas HCO3 16.2 mmol/L (22-27); Venous Blood Gas O2 Sat % 70.6 %; Venous Blood Gas pCO2 36 mmHg (35-48); Venous Blood Gas pH 7.26 (7.32-7.43); Venous Blood Gas pO2 44 mmHg (30-50)
[2024-04-23 18:35] LABS: Glucose - Point of Care 446 mg/dl (70-99)
[2024-04-23 19:33] LABS: Glucose - Point of Care 323 mg/dl (70-99)
[2024-04-23 20:37] LABS: Glucose - Point of Care 230 mg/dl (70-99)
--- NOTE | 2024-04-23 20:45 | PTCARENOTE ---
Rec'd pt from ER via stretcher on monitor & Insulin gtt at 3 units /hr, pt lethargice, occas moaning, no verbal response, does not follow commands, contracted, lies in position, CHG bath done on adm, B Sushma, COMBAT RIFLE CREWMEMBER aware of glucose, IVF
changed to D% 1/2 w/ 20 kcl at 150/hr, AFIB, rate up to 150, bp stable, B Sushma, Dye Expert aware, no orders rec'd, unable to obtain pedal or post tibial pulses, popliteal via doppler- B Sushma, COMBAT RIFLE CREWMEMBER aware, feet cool, toes dusky, weak radial pulses,
no edema, skin pale, dry, RA, lungs decr throughout, sat 96, tachypneic, decr bowel sounds, no bm, abd flat, soft, NPO, no vomiting, purewick placed, pt just voided before came up to ICU
[2024-04-23 20:47] LABS: INR 1.49; PT 17.9 Sec (11.4-14.6)
[2024-04-23 20:48] LABS: APTT 27.8 Sec (23.4-35.0)
[2024-04-23 20:56] LABS: Lactic Acid 5.7 mmol/L (0.7-2.0)
[2024-04-23 21:01] LABS: Blood Urea Nitrogen 27 mg/dl (7-17); Calcium 9.7 mg/dl (8.4-10.2); Carbon Dioxide 15 mmol/L (22-30); Chloride 116 mmol/L (98-107); Estimated Creatinine Clearance 45 ml/min; Glucose 247 mg/dl (70-99); Potassium 4.9 mmol/L (3.5-5.1); Sodium 142 mmol/L (135-145); eGFR > 60.00
[2024-04-23] MEDS: D5/0.45%NSS with KCL 20 MEQ 1000 IV (21:08)
[2024-04-23] MEDS: HEPARIN 5000 UNITS SC (21:08)
[2024-04-23] MEDS: ZOSYN 50 IV (21:09)
[2024-04-23 21:42] LABS: Glucose - Point of Care 197 mg/dl (70-99)
[2024-04-23 22:39] LABS: Glucose - Point of Care 219 mg/dl (70-99)
[2024-04-23 23:41] LABS: Glucose - Point of Care 219 mg/dl (70-99)
[2024-04-24] VITALS (30 sets, daily range): BP systolic 93–148; BP diastolic 53–117; BMI 17.5
--- NOTE | 2024-04-24 | PTCARENOTE ---
sys reviewed, bladder scanned for 98 ml, cont to be in AFIB up to 150, B Sushma, UTILITY TECHNICIAN aware, pt moaning with turning, lethargic
[2024-04-24 00:32] LABS: Glucose - Point of Care 157 mg/dl (70-99)
[2024-04-24 00:49] LABS: Blood Urea Nitrogen 26 mg/dl (7-17); Calcium 9.4 mg/dl (8.4-10.2); Carbon Dioxide 18 mmol/L (22-30); Chloride 116 mmol/L (98-107); Estimated Creatinine Clearance 43 ml/min; Glucose 155 mg/dl (70-99); Potassium 4.8 mmol/L (3.5-5.1); Sodium 145 mmol/L (135-145); eGFR > 60.00
[2024-04-24 01:10] LABS: Lactic Acid 5.2 mmol/L (0.7-2.0)
[2024-04-24 01:36] LABS: Glucose - Point of Care 218 mg/dl (70-99)
[2024-04-24] MEDS: ATIVAN 0.25 MG IV (01:50)
[2024-04-24] MEDS: NSS (PRESERVATIVE FREE) 0.125 ML IV (01:50)
--- NOTE | 2024-04-24 01:56 | PTCARENOTE ---
B ISAAC Ordaz aware of incr BP, cont HR up to 150, and incr moaning / agitation, ativan 0.25mg iv given as ordered
[2024-04-24 02:41] LABS: Glucose - Point of Care 169 mg/dl (70-99)
[2024-04-24] MEDS: LOPRESSOR 2.5 MG IV (02:42)
--- NOTE | 2024-04-24 02:43 | PTCARENOTE ---
lopressor 2.5mg iv given per order
[2024-04-24] MEDS: D5/0.45%NSS with KCL 20 MEQ 1000 IV ×2 (03:32→10:36)
[2024-04-24] MEDS: ZOSYN 50 IV ×4 (03:32→21:00)
[2024-04-24 03:37] LABS: Glucose - Point of Care 146 mg/dl (70-99)
--- NOTE | 2024-04-24 04:00 | PTCARENOTE ---
Addendum entered by Jessica Nix RN 04/24/24 05:56:
Sherman Ordaz NP aware of bladder scan result
Original Note:
sys reviewed, less agitated after ativan, HR 120, bladder scanned for 199ml
[2024-04-24 04:42] LABS: Glucose - Point of Care 157 mg/dl (70-99)
[2024-04-24 05:09] LABS: Lactic Acid 3.7 mmol/L (0.7-2.0)
[2024-04-24 05:10] LABS: Blood Urea Nitrogen 25 mg/dl (7-17); Calcium 9.1 mg/dl (8.4-10.2); Carbon Dioxide 19 mmol/L (22-30); Chloride 116 mmol/L (98-107); Estimated Creatinine Clearance 45 ml/min; Glucose 124 mg/dl (70-99); Sodium 142 mmol/L (135-145); eGFR > 60.00
[2024-04-24 05:11] LABS: % Basophils 0.3 % (0-2); % Immature Granulocytes 0.8 % (0-0.5); % Lymphocytes 18.2 % (20.5-51.1); % Monocytes 9.3 % (1.7-9.3); % Neutrophils 71.4 % (42.2-75.2); Absolute Immature Granulocytes 0.1 10^3/uL (0-0.05); Absolute Lymphocytes 2.5 10^3/uL (1.2-3.4); Absolute Monocytes 1.3 10^3/uL (0.1-0.6); Absolute Neutrophils 9.8 10^3/uL (1.4-6.5); Hematocrit 29.1 % (37.0-47.0); Mean Corp Hgb Conc. 30.9 g/dL (33.0-37.0); Mean Corpuscular Hgb 24.7 pg (27.0-31.0); Mean Corpuscular Volume 79.7 fL (81.0-99.0); Mean Platelet Volume 11.6 fL (7.4-10.4); Nucleated Red Blood Cells % 0.1 %; Platelet Count 283 10^3/uL (130-400); Red Blood Cell Count 3.65 10^6/uL (4.20-5.40); Red Cell Dist. Width 19.9 % (11.5-14.5); White Blood Cell Count 13.7 10^3/uL (4.8-10.8)
[2024-04-24 05:15] LABS: Vancomycin Random 8.6 ug/ml
[2024-04-24 05:42] LABS: Glucose - Point of Care 160 mg/dl (70-99)
[2024-04-24 06:40] LABS: Glucose - Point of Care 167 mg/dl (70-99)
[2024-04-24 07:52] LABS: Glucose - Point of Care 149 mg/dl (70-99)
--- NOTE | 2024-04-24 07:56 | PHA.VAN.IN ---
Assessment
- Assessment
Renal Function: Appears similar to baseline
Concomitant Antimicrobials: piperacillin/tazobactam
Laboratory Tests
04/24/24
04:31
Random Vancomycin 8.6
Level drawn ~11H after 1000mg initial dose (~23.9 mg/kg)
AUC Dosing Plan
- Dosing Variables
Dosing Weight (kg): 48
Dosing CrCl (ml/min): 45-51
Vd coefficient (L/kg): 0.7
Utilized IBW for dosing weight given BMI < 20
Used IBW and TBW to calculate CrCl range
- Empiric Dosing
Initial / Loading Dose: 1000mg - 04/23 17:22
Maintenance Regimen: Vanc 750mg Q24H
Estimated AUC (mcg*h/mL): 489 - 546
Estimated Peak (mcg*h/mL): 33.1 - 35.3
Estimated Trough (mcg/ml): 11.3 - 13.5
Estimated Half Life (H): 14.8 - 16.6
- Monitoring
No levels ordered at this time: consider levels in next few days
Pharmacokinetics Vancomycin I
- -
Patient Age: 79
Patient Sex: Female
Vancomycin Day #: 1
Indication: Genito-Urinary Tract
Requesting Provider: Dr. Kenyon
Pertinent Antimicrobial Allergies:
penicillins - nausea
Height / Weight:
Height 5 ft 1 in
Actual Weight 41.9 kg
IBW in k.8
Pertinent Past Medical History: BMI ~17.5, DM 2
- Vital Signs / Lab Results
Temp Pulse Resp BP Pulse Ox
99.5 F 103 40 108/73 97
04/24/24 03:30 04/24/24 04:00 04/24/24 03:45 04/24/24 04:00 04/24/24 04:15
Lab Results - Hematology
04/23/24 04/24/24
14:47 04:31
WBC 15.0 H 13.7 H
Lab Results - Chemistry
04/23/24 04/23/24 04/23/24
14:47 17:06 17:06
BUN 26 H 26 H Cancelled
Creatinine 1.0 0.8
Estimated Creat Clear
Albumin 3.3 L
04/23/24 04/23/24 04/23/24
17:06 17:06 20:29
BUN 27 H
Creatinine Cancelled 0.7
Estimated Creat Clear 39 Cancelled 45
Albumin
04/23/24 04/24/24 04/24/24
22:00 00:00 00:21
BUN Cancelled Cancelled 26 H
Creatinine Cancelled Cancelled 0.7
Estimated Creat Clear Cancelled Cancelled 43
Albumin
04/24/24
04:31
BUN 25 H
Creatinine 0.7
Estimated Creat Clear 45
Albumin
04/23/24 04/23/24 04/24/24
14:47 20:29 00:21
Lactic Acid 11.6 H* 5.7 H* 5.2 H*
04/24/24
04:31
Lactic Acid 3.7 H
Lab Results - Urine
04/23/24
14:47
Urine Nitrite (Reflex) Negative
Leukocyte Esterase Rfl 1+ A
Urine WBC (Reflex) 11-15 A
Urine Bacteria (Reflex) Many A
--- NOTE | 2024-04-24 08:22 | CON.INTV ---
Consultation
Consultation Request
Date/Time Consultation Requested: 04/23/2024 - 2224
Date/Time Consultation Performed: 04/24/2024 - 817
Requesting Provider: DARI Venegas
Performing Provider: Huy Lua MD
Reason for Consultation: Sepsis/DKA
Medical History
-
Chief Complaint: Worsening generalized weakness + tachycardia
History of Present Illness:
79-year-old female with a past medical history of hypertension, history of VT, history of A-fib, history of duodenal ulcer, history of esophagitis with UGIB, hypothyroidism, DM type II, dementia, Parkinson disease, history of heart failure, TIA and
GERD who presents from [facility] for generalized weakness, fast heart rate and temperature of 101.5 �F. Patient recently hospitalized from 04/04 - 04/14/2024 due to altered mental status with Enterococcus faecalis UTI and hypernatremia, she
required ICU stay with need for pressors, eventually was downgraded and due to multiple goals of care discussions she was discharged back to SNF and then enroll in hospice there. Hospice was then revoked and this is what led her to be
rehospitalized here currently. Patient was apparently in normal health until lunchtime today while at [facility]. In the ER she was febrile to 101.5 �F, tachycardic to 165 bpm, BP 118/82, saturating 96% on room air and breathing at 30
breaths/min. Labs showed leukocytosis to 15, Hb 10.6, platelets 419, venous blood gas pH 7.26, pCO2 36, initial serum bicarbonate level 13 with AG of 20, potassium level 6.3, glucose 615, lactate 11.6, and urinalysis showed trace ketones with +1
leukocyte esterase and many urine bacteria. Urine culture was collected as well as blood culture. CXR showed suspected mild interstitial pulmonary edema with no evidence of pneumonia. She was given IV fluids as DKA was suspected. 1 L of NS 0.9%
was given, she was started on IV fluids and insulin drip and then transferred to the ICU for further care. Critical care services consulted for additional management/recommendations.
Patient seen and evaluated this morning. Remains minimally responsive. Heart rate 121, BP 116/92 and saturating 97% on room air. She remains on insulin gtt. came to bedside and I discussed goals of care with him. He says that hospice
was revoked as the patient started to become awake and alert and was eating better. He says that he does not want her on a ventilator at all and if her breathing were to get worse he would like to transition to comfort care at that time. He does
say that he is okay with her getting compressions if we think that she could possibly survive, otherwise he would leave that up to us. He understands that there is only so many times that she can get septic and be here in the hospital getting
antibiotics, but he would like to continue full medical management for now and see how she responds before additional goals of care decisions are made. I answered all of his questions and he verbalized understanding of the plan that I explained to
him in layman's terms.
PMHx: Anemia, hypertension, history of VT, history of A-fib, history of esophagitis with UGIB, history of duodenal ulcer, history of VIKTORIA, hypothyroidism, DM type II, hyperlipidemia, dementia, Parkinson's disease, history of heart failure, history of
TIA, GERD, depression
PSHx: History of defibrillator, history of wound VAC
Past Medical History
Past Medical History: Other (Above as per HPI)
Past Surgical History: Other (Above as per HPI)
Social History
Tobacco: Non-smoker
Alcohol: None
Drug: None
Family History
Family History: Reviewed & Not Pertinent
Allergies / Home Medications
Allergies
Allergy/AdvReac Type Severity Reaction Status Date / Time
Penicillins AdvReac Nausea Verified 04/09/24 17:19
Home Medications
�Medication �Instructions �Recorded �Confirmed �Last Taken �Type
docusate sodium 100 mg tablet 100 mg PO BID Constipation 02/20/23 04/23/24 09/29/23 20:00 History
mirtazapine 15 mg tablet 15 mg PO HS Depression 02/20/23 04/23/24 Unknown History
melatonin 5 mg tablet 5 mg PO HS Sleep 09/21/23 04/23/24 09/29/23 20:00 History
olanzapine 15 mg tablet (Zyprexa) 15 mg PO HS Mental Health/Anxiety 09/21/23 04/23/24 09/29/23 20:00 History
acetaminophen 650 mg rectal 650 mg TX Q6H PRN mild pain/fever 04/23/24 04/23/24 Unknown History
suppository
bisacodyl 5 mg tablet,delayed 10 mg PO DAILYPRN PRN constipation 04/23/24 04/23/24 Unknown History
release
divalproex 250 mg tablet,delayed 250 mg PO BID 04/23/24 04/23/24 Unknown History
release (Depakote)
hyoscyamine sulfate 0.125 mg/mL 1 ml PO Q4HPRN PRN secretions 04/23/24 04/23/24 Unknown History
oral drops
lorazepam 2 mg/mL oral concentrate 0.25 mg PO Q2HPRN PRN agitation 04/23/24 04/23/24 Unknown History
morphine 20 mg/5 mL (4 mg/mL) oral 1 mg PO Q3HPRN PRN severe pain 04/23/24 04/23/24 Unknown History
solution
omeprazole 20 mg tablet,delayed 20 mg PO BID 04/23/24 04/23/24 Unknown History
release
prochlorperazine maleate 10 mg 10 mg PO Q6HPRN PRN nausea 04/23/24 04/23/24 Unknown History
tablet
Review of Systems
-
Unable to Obtain full review of systems at this time due to: Patient Non Verbal
Vitals / Labs / Diagnostic Testing
Vital Signs
Temp Pulse Resp BP Pulse Ox
99.1 F 123 36 116/88 96
04/24/24 08:12 04/24/24 08:30 04/24/24 08:30 04/24/24 08:00 04/24/24 08:30
Lab Data
04/24/24 04:31
Laboratory Results
04/23/24
20:29
PT 17.9 H
INR 1.49
APTT 27.8
Diagnostic Testing:
Physical Exam
-
HEENT: Normocephalic and Anicteric
Cardiovascular: S1/S2, Peripheral Edema (Negative) and Other (Tachycardic)
Respiratory: Wheeze (Negative), Rales (Negative), Rhonchi (Negative), Non-Labored Respirations and Other (Reduced breath sounds bilaterally)
GI: Soft, Non Distended, Non Tender and Normal Bowel Sounds
Neurology: Tremors (negative) and Other (Minimally responsive; no seizure like activity seen)
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
General: Respiratory Distress (Negative), Chills (Negative) and Sweats (Negative)
Assessment
-
Assessment: 79-year-old female with a past medical history of hypertension, history of VT, history of A-fib, history of duodenal ulcer, history of esophagitis with UGIB, hypothyroidism, DM type II, dementia, Parkinson disease, history of heart
failure, TIA and GERD who presents from [facility] for generalized weakness, fast heart rate and temperature of 101.5 �F. Patient recently hospitalized from 04/04 - 04/14/2024 due to altered mental status with Enterococcus faecalis UTI and
hypernatremia, she required ICU stay with need for pressors, eventually was downgraded and due to multiple goals of care discussions she was discharged back to SNF and then enroll in hospice there. Hospice was then revoked and this is what led her
to be rehospitalized here currently. Patient was apparently in normal health until lunchtime today while at [facility]. In the ER she was febrile to 101.5 �F, tachycardic to 165 bpm, BP 118/82, saturating 96% on room air and breathing at 30
breaths/min. Labs showed leukocytosis to 15, Hb 10.6, platelets 419, venous blood gas pH 7.26, pCO2 36, initial serum bicarbonate level 13 with AG of 20, potassium level 6.3, glucose 615, lactate 11.6, and urinalysis showed trace ketones with +1
leukocyte esterase and many urine bacteria. Urine culture was collected as well as blood culture. CXR showed suspected mild interstitial pulmonary edema with no evidence of pneumonia. She was given IV fluids as DKA was suspected. 1 L of NS 0.9%
was given, she was started on IV fluids and insulin drip and then transferred to the ICU for further care. Critical care services consulted for additional management/recommendations.
Chronic conditions NURSE LIAISON: Anemia, hypertension, history of VT, history of A-fib, history of esophagitis with UGIB, history of duodenal ulcer, history of VIKTORIA, hypothyroidism, DM type II, hyperlipidemia, dementia, Parkinson's disease, history of heart
failure, history of TIA, GERD, depression
Impression:
#Sepsis likely due to UTI with left first metatarsal head ulceration with purulence
#Lactic acidosis - likely due to septic shock
#DM type II c/b hyperglycemia - doubt she has DKA as her AG has been closed even when her BG was 477; hence her AG and metabolic acidosis is from lactic acidosis; could be component of starvation ketosis
#History of Enterococcus faecalis UTI (via [facility] from 04/04/2024)
#A-fib with RVR
#HX of VT and TDT s/p single-lead ICD
#Hx of CVA
#Cachectic with FTT
Plan:
- Continue insulin gtt and once serum HCO3 level is 18 or greater then will transition off insulin gtt by bridging with lantus using 15 units since AG is closed x2 and BG<180
- Start ISS once off insulin gtt and continue to monitor BG q6hr; adjust lantus as needed to keep BG 140-180
- Rate control with goal <110-120 --> insert DHT as pt not awake enough to swallow safely, this was confirmed with and he is ok with dobhoff tube for now; start tube feeds as well through DHT
- Maintain MAP>65
- Replete electrolytes with K>4, Mg>2
- Continue broad spectrum Abx -currently on IV vancomycin + Zosyn
- Consult wound care and podiatry given purulent appearing left foot first metatarsal head ulceration, although unlikely to be offered any aggressive treatment given her poor functional status and poor prognosis
- Follow-up urine culture + blood culture
- Maintain SpO2 >90-94%
- prn nebulized bronchodilators
- Trend lactate level until <2mmol/L
- Transition all home medications to via Dobbhoff tube however hold any medications that may cause depressed mentation
- Aspiration precautions by keeping HOB>30-45 degrees
- Keep strict NPO, but ok for TF and meds via DHT
- Keep eye on lower extremities as they are dusky with absent DP + PT pulses and no signal on doppler - not a vascular surgery candidate; they saw her last admission and this patient is known to vascular surgery from prior endovascular intervention
for critical limb threatening ischemia of her RLE. Given patient's non-ambulatory status with worsening dementia, malnutrition and poor prognosis, no vascular surgical intervention was recommended at that time.
- DVT ppx: HSQ
- Guarded prognosis
Code Status: DNI; ok for CPR
Critical care statement: A total of 40 minutes of critical care time was provided for this patient today. This includes management of unstable vital signs, evaluation of the patient at bedside, reviewing the patient's pertinent medical records
including radiographs, microbiology, laboratory evaluations, and discussion with primary team, consultants, pharmacy, nutrition, physical therapy, case management, charge nurse, critical care nursing, and respiratory therapy.
[2024-04-24 08:29] LABS: Lactic Acid 3.2 mmol/L (0.7-2.0)
[2024-04-24] MEDS: HEPARIN 5000 UNITS SC ×2 (08:30→19:57)
[2024-04-24 08:47] LABS: Glucose - Point of Care 152 mg/dl (70-99)
--- NOTE | 2024-04-24 09:01 | PTCARENOTE ---
Rec'd pt at 0700. Insulin gtt at 2 units /hr, pt lethargic, no verbal response, does not follow commands, contracted, lies in position, IVF as ordered. AFIB, rate up to 110-130s, bp stable. unable to obtain pedal or post tibial pulses,
popliteal via doppler. feet cool, toes dusky, weak radial pulses, no edema, skin pale, dry, RA, lungs diminished throughout, SpO2 97%, tachypneic, decr bowel sounds, no bm, abd flat, soft, NPO, no vomiting, purewick in place. Bladder scanned for
312cc.
[2024-04-24 09:30] LABS: Blood Urea Nitrogen 23 mg/dl (7-17); Calcium 8.9 mg/dl (8.4-10.2); Carbon Dioxide 17 mmol/L (22-30); Chloride 117 mmol/L (98-107); Estimated Creatinine Clearance 45 ml/min; Glucose 116 mg/dl (70-99); Potassium 4.9 mmol/L (3.5-5.1); Sodium 140 mmol/L (135-145); eGFR > 60.00
[2024-04-24 09:50] LABS: Glucose - Point of Care 156 mg/dl (70-99)
--- NOTE | 2024-04-24 10:12 | CM ---
CM following re: discharge planning.
Reviewed pt's chart, met with pt.
Pt is a 79 year old female, admitted with primary dx of Sepsis/UTI
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
D/C plan: return back to [facility] when medically stable.
CM will follow with discharge plan updates as hospitalization progresses
[2024-04-24 10:46] LABS: Glucose - Point of Care 121 mg/dl (70-99)
[2024-04-24] MEDS: VANCOCIN 150 IV (11:01)
[2024-04-24 11:44] LABS: Glucose - Point of Care 134 mg/dl (70-99)
[2024-04-24 12:01] LABS: Lactic Acid 3.4 mmol/L (0.7-2.0)
[2024-04-24 12:03] LABS: Blood Urea Nitrogen 22 mg/dl (7-17); Calcium 8.7 mg/dl (8.4-10.2); Carbon Dioxide 20 mmol/L (22-30); Chloride 115 mmol/L (98-107); Estimated Creatinine Clearance 45 ml/min; Glucose 140 mg/dl (70-99); Magnesium 1.5 mg/dl (1.6-2.3); Potassium 4.9 mmol/L (3.5-5.1); Sodium 140 mmol/L (135-145); eGFR > 60.00
[2024-04-24 12:13] LABS: Phosphorus 3.2 mg/dl (2.5-4.5)
[2024-04-24 12:43] LABS: Glucose - Point of Care 181 mg/dl (70-99)
--- NOTE | 2024-04-24 13:00 | PTCARENOTE ---
Assessment unchanged. Dobhoff placed in L nare without issue. changed code status to DNI.
[2024-04-24] MEDS: MAGNESIUM SULFATE 50 IV (13:03)
[2024-04-24 13:55] LABS: Glucose - Point of Care 167 mg/dl (70-99)
--- NOTE | 2024-04-24 14:50 | W.PN.HOSP.TC ---
Today's Communication/Plan
-
insulin gtt, ivf, q4 bmp, keep K >4
Assessment / Plan
Assessment / Plan
Moans to sternal rub does not open eyes does not follow commands
Scleral anicteric
Moist mucous membranes
No JVD
Distant lung sounds
S1/S2, tachycardic
Soft nontender nondistended bowel sounds active
No peripheral pitting edema
Severe sepsis, follow-up blood culture with IV fluids IV antibiotics n.p.o.
-UCx growing enterococcus. Await Bcx and Sensitivities
DKA continue insulin drip per DKA protocol IV fluids with half NS, once sugars consistently less than 200 then begin D5 half NS, keep K greater than 4 while on insulin drip if needed provide IV fluids with potassium and give additional, Q4 BMP, q1h
accuccehc
-Once Gap closes transition/Bridge to subQ and provide diet if awake enpught to tolerate otherwse continue for now
#Atrial fibrillation with RVR secondary to fever/sepsis
-Continue oral diltiazem
-Avoid further rate control until adequately fluid resuscitated
History of Enterococcus UTI
History of ventricular fibrillation/torsades status post ICD
Coronary artery disease
-Continue aspirin, statin
Chronic HFpEF, Hypovolemic, does not appear to be on diuretics.
-Outpatient cards follow up
History of upper GI bleeding secondary to erosive esophagitis
-Continue Protonix, sucralfate
Chronic anemia
-Hemoglobin stable
Advanced dementia with behavioral problems
-Continue Depakote, mirtazapine, olanzapine, ativan
History of pressure injuries of heel/buttocks
Hypercholesterolemia
-Continue fenofibrate, statin
Hypothyroidism
Anticipated Discharge: 24 - 48 hours
Subjective/Interval History
-
Date of Service: April 24, 2024
Seen and examined. No acute overnight events.
Remains on insulin drip and broad-spectrum antibiotic
Moaning to sternal rub however does not open eyes nor follow commands
Objective Data
-
Labs:
Laboratory Results
04/24/24 04/24/24 04/24/24
04:31 08:03 10:00
WBC 13.7 H
Hgb 9.0 L
Hct 29.1 L
Plt Count 283 D
Sodium 142 140 Cancelled
Potassium 5.0 4.9 Cancelled
Chloride 116 H 117 H Cancelled
Carbon Dioxide 19 L 17 L Cancelled
BUN 25 H 23 H Cancelled
Creatinine 0.7 0.7 Cancelled
Glucose 124 H 116 H Cancelled
Calcium 9.1 8.9 Cancelled
04/24/24 04/24/24 04/24/24
11:33 16:00 16:00
WBC
Hgb
Hct
Plt Count
Sodium 140 Cancelled Cancelled
Potassium 4.9 Cancelled
Chloride 115 H
Carbon Dioxide 20 L
BUN 22 H
Creatinine 0.7
Glucose 140 H
Calcium 8.7
04/24/24 04/24/24 04/24/24
16:00 16:00 16:00
WBC
Hgb
Hct
Plt Count
Sodium
Potassium Cancelled
Chloride Cancelled Cancelled
Carbon Dioxide Cancelled Cancelled
BUN Cancelled
Creatinine
Glucose
Calcium
04/24/24 04/24/24 04/24/24
16:00 16:00 16:00
WBC
Hgb
Hct
Plt Count
Sodium
Potassium
Chloride
Carbon Dioxide
BUN Cancelled
Creatinine Cancelled Cancelled
Glucose Cancelled Cancelled
Calcium Cancelled
04/24/24 04/24/24
16:00 20:00
WBC
Hgb
Hct
Plt Count
Sodium Cancelled
Potassium Cancelled
Chloride Cancelled
Carbon Dioxide Cancelled
BUN Cancelled
Creatinine Cancelled
Glucose Cancelled
Calcium Cancelled Cancelled
Vital Signs:
Vital Signs
Temp Pulse Resp BP Pulse Ox
98.8 F 135 38 103/80 97
04/24/24 12:36 04/24/24 14:00 04/24/24 14:00 04/24/24 14:00 04/24/24 14:00
I&O
04/23/24 04/24/24 04/25/24
06:59 06:59 06:59
Intake Total 1576 / 1728 1211 / 1211
Balance 1576 / 1728 1211 / 1211
[2024-04-24] MEDS: LOPRESSOR 25 MG TUBE ×2 (15:39→20:13)
[2024-04-24] MEDS: LANTUS 0.15 UNITS SC (15:39)
--- NOTE | 2024-04-24 16:45 | PTCARENOTE ---
Pt occasionally moaning and L hand tremors noted. No commands followed and nonverbal. Insulin and IVF stopped as ordered.
[2024-04-24] MEDS: D5/0.45%NSS with KCL 20 MEQ IV (17:36)
[2024-04-24 17:41] LABS: Glucose - Point of Care 324 mg/dl (70-99)
[2024-04-24] MEDS: NOVOLOG FLEXPEN-LOW RESISTANCE 4 UNITS SC (17:42)
[2024-04-24] MEDS: NOVOLOG FLEXPEN 4 UNITS SC ×2 (17:43→23:57)
[2024-04-24] MEDS: CARDIZEM 10 MG IV (18:28)
[2024-04-24] MEDS: DEPAKENE 250 MG TUBE (19:57)
--- NOTE | 2024-04-24 20:00 | PTCARENOTE ---
Rec'd pt nonverbal, contracted, LARON at 2mm, no response to commands; Afib, bp stable,no pedal/ post tibial pulses via doppler, + Left popliteal via doppler, no R popliteal via doppler R fem via doppler, R leg cold, pale, mottled, Sherman Ordaz NP in
to assess & spoke w/ Dr Woo notified, Sherman Ordaz NP spoke w/ about findings, CT ordered, no edema, skin dry, RA, lungs decr, sat 95, + bowel sounds, no bm Left nares dobhoff- osmolyte 1.2 at 20ml/hr & 25ml/hr h2- flush, inc of urine
attends on
[2024-04-24] MEDS: PREVACID 15 MG TUBE (20:32)
--- NOTE | 2024-04-24 20:39 | W.PN.UPDATE ---
Update Note
Progress Note Update
0820 Unable to find popliteal pulse on right leg. �Right calf notable colder than left calf. �Case discussed with vascular surgery; recommendation was for CT Angio to be performed. �Discussed the situation with and he is comfortable
proceeding with the test. 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 Findings discuss with and making a decision of surgery or comfort care based on poor prognosis. � also discussed the case with vascular
surgeon. The decision was made to proceed with comfort measures.�
[2024-04-24] MEDS: NSS 1000 IV (20:58)
[2024-04-24] MEDS: MELATONIN 5 MG TUBE (21:00)
[2024-04-24] MEDS: REMERON 15 MG TUBE (21:00)
--- NOTE | 2024-04-24 21:30 | PTCARENOTE ---
Pt to CT for study via bed on monitor
--- NOTE | 2024-04-24 21:58 | PTCARENOTE ---
returned from CT, bladder scanned for 330 ml, then voided
--- NOTE | 2024-04-24 23:30 | W.PN.UPDATE ---
Update Note
Progress Note Update
79 yo F known to Dr Cochran for CLI. On 04/12, patient's and Dr Cochran elected not to have her undergo any further vascular procedures or surgeries for her non healing wounds and instead undergo local wound care for comfort per his note. Now she
is admitted for sepsis and lethargy. Patient is bedbound at baseline, with severe dementia and arousable only to aggressive sternal rub. She was noticed by nursing at around 8pm to have a cold, signal-less right lower extremity. CTA shows R ROMMEL
occlusion. I discussed her condition in detail with her Ed via phone ([phone]). Surgery would require intubation, reversal of her DNR, multiple incisions, and myriad other risks. No surgery would result in progressive limb ischemia and
. 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 He therefore elects to have her be comfort measures and full DNR/DNI,
understanding this will result in her demise. Discussed with Jerry from the ICU team.
--- NOTE | 2024-04-24 23:49 | PTCARENOTE ---
pt made a DNR after talked w/ Dr Caceres, tube fdg dc'd per order
[2024-04-24] MEDS: NOVOLOG FLEXPEN-LOW RESISTANCE 2 UNITS SC (23:57)
[2024-04-25] VITALS (7 sets, daily range): BP systolic 81–126; BP diastolic 66–84
[2024-04-25 00:02] LABS: Glucose - Point of Care 232 mg/dl (70-99)
--- NOTE | 2024-04-25 00:13 | PTCARENOTE ---
Pt made comfort
[2024-04-25] MEDS: MORPHINE SULFATE 2 MG IV ×7 (00:30→23:46)
--- NOTE | 2024-04-25 00:31 | PTCARENOTE ---
morphine 2mg iv given for end of life assessment
--- NOTE | 2024-04-25 01:28 | PTCARENOTE ---
morphine 2mg iv given for end of life resp status
--- NOTE | 2024-04-25 03:29 | PTCARENOTE ---
morphine 2mg iv given for end of life resp score 4, chg bath done, linens changed, r leg w/ incr mottling, cold
--- NOTE | 2024-04-25 06:04 | PTCARENOTE ---
morphine 2mg iv given
--- NOTE | 2024-04-25 09:46 | W.CAR.ICD ---
ICD Inactivation Request
-
Presetter Operator Notified: [employer]
The above vendor has been contacted to inactivate the patient's Implantable Cardioverter Defibrillator.
--- NOTE | 2024-04-25 11:03 | PN.CDI ---
CDI
- -
CDI:
Physician Documentation Request
Admit Date: 04/23/24 16:46
Dear Doctor Ede,
Clinical Indicators:
Patient admitted with severe sepsis; PMH includes advanced dementia.
BMI 17.5
Roll Finisher consult, 'Cachectic with FTT...worsening dementia, malnutrition and poor prognosis...'
04/24 note/assessment, 'CBW reflects a 21lbs wt loss or 18.5% change in wt in approximately 14 months. ote durin gprevious hospitalization it was indciated that pt had Pt with observed clavicle protrusion, orbital hollowness, temporal meeting
ASPEN and AND criteria for severe protein calorie malnutrition of chronic illness.
Based on the above information and your assessment, which of the following most accurately represents the patient's nutritional status?
Severe Protein Calorie Malnutrition
Other Malnutrition (please specify if mild or moderate)
Cachexia without malnutrition
Other (please specify)
Pixley Criteria ([facility]ist 2017)
2 or more criteria must be present for either
non severe or severe malnutrition
Note that the criteria differs related to the
presence of an acute or chronic illness
Acute Illness Chronic Illness
Energy Intake Non Severe: <75% for >7 days Non Severe: <75% for >1 month
Severe: <50% for >5 days Severe: <75% for >1 month
Weight Loss Non Severe: 1-2% over 1 week Non Severe: 5% over 1 month
5% over 1 month 7.5% over 3 months
7.5% over 3 months 10% over 6 months
1 year N/A 20% over 1 year
Severe: >2% over 1 week Severe: >5% over 1 month
>5% over 1 month >7.5% over 3 months
>7.5% over 3 months >10% over 6 months
1 year N/A >20% over 1 year
Body Fat Non Severe: Mild Decrease Non Severe: Mild Loss
Severe: Moderate Decrease Severe: Severe Loss
Muscle Mass Non Severe: Mild Decrease Non Severe: Mild Loss
Severe: Moderate Decrease Severe: Severe Loss
Fluid Accumulation Non Severe: Mild Accumulation Non Severe: Mild Accumulation
Severe: Moderate to severe Severe: Moderate to severe
accumulation accumulation
Reduced Selling Manager Strength Non Severe: N/A Non Severe: N/A
Severe: Measurably reduced Severe: Measurably reduced
Additional criteria that can be used to Determine if Mild or Moderate Malnutrition ([employer]ck Manual 2018)
Mild Moderate Severe
Albumin gm/dl <3.0 gm/dl <2.5 gm/dl <2.0 gm/dl
Pre Albumin mg/dl <15 gm/dl <10 mg/dl <5.0 mg/dl
BMI <18.5 <17 <16
Use of terms such as suspected, likely, concern for, or probable (associated with a specific diagnosis that is being evaluated, monitored, or treated as if it exists) are acceptable and can be coded in the inpatient setting, when documented at the
time of discharge.
Thank you,
Anisa Duncan RN BSN
CDI Specialist
available via tiger text
Please use your independent medical judgment in providing your response.
--- NOTE | 2024-04-25 11:11 | PN.CDI ---
CDI
- -
CDI:
Physician Documentation Request
Admit Date: 04/23/24 16:46
Dear Doctor Ede,
Clinical Indicators:
Patient admitted with severe sepsis, UTI, & DKA; PMH includes advanced dementia with behavior problems.
04/23 ED report, 'NEURO awake but nonverbal.'
04/24 (09:01) RN note, ' pt lethargic, no verbal response, does not follow commands, contracted, lies in position'
04/24 PN, 'Moans to sternal rub does not open eyes does not follow commands.'
Based on the above, could you clarify which, if any of the following, is the most likely etiology of the confusion/altered mental status.
Encephalopathy - indicate type, such as metabolic, toxic, septic
Baseline Advanced Dementia only
Other
Use of terms such as suspected, likely, concern for, or probable (associated with a specific diagnosis that is being evaluated, monitored, or treated as if it exists) are acceptable and can be coded in the inpatient setting, when documented at the
time of discharge.
Thank you,
Anisa Duncan RN BSN
CDI Specialist
available via tiger text
Please use your independent medical judgment in providing your response.
--- NOTE | 2024-04-25 11:40 | W.PN.UPDATE ---
Update Note
Progress Note Update
Overnight, patient had loss of right lower extremity popliteal pulse. CTA abdominal aorta with runoff obtained showing complete occlusion at the right common iliac artery with small nonocclusive thrombus in the anterolateral lumen of the distal
abdominal aorta. Vascular surgery consulted. Discussion held with the and decision made to pursue comfort care measures. Extension Service Supervisor/pulmonary service will now sign off. Patient was not seen today due to events from overnight given she
was TRX to comfort care.
--- NOTE | 2024-04-25 11:46 | WOUNDNOTE ---
WOC RN note: t/c Spoke with RN Chaya who confirmed patient is comfort measures only and agrees appropriate to cancel WOC RN consult.
--- NOTE | 2024-04-25 13:33 | W.ICD.INACTI ---
ICD Device Inactivated
-
The patient's ICD device has been inactivated by the vendor.
--- NOTE | 2024-04-25 13:37 | W.PN.HOSP.TC ---
Today's Communication/Plan
-
Hospice evaluation continue comfort care measures
Provide dignity and hygiene
ICD turned off
Assessment / Plan
Assessment / Plan
Moans to sternal rub does not open eyes does not follow commands
Scleral anicteric
Moist mucous membranes
No JVD
Distant lung sounds
S1/S2, tachycardic
Soft nontender nondistended bowel sounds active
No peripheral pitting edema
Severe sepsis, follow-up blood culture with IV fluids IV antibiotics n.p.o.
-UCx growing enterococcus. Await Bcx and Sensitivities
DKA continue insulin drip per DKA protocol IV fluids with half NS, once sugars consistently less than 200 then begin D5 half NS, keep K greater than 4 while on insulin drip if needed provide IV fluids with potassium and give additional, Q4 BMP, q1h
accuccehc
-Once Gap closes transition/Bridge to subQ and provide diet if awake enpught to tolerate otherwse continue for now
#Atrial fibrillation with RVR secondary to fever/sepsis
-Continue oral diltiazem
-Avoid further rate control until adequately fluid resuscitated
ALI of RLE
-Evaled by vascular surgery, rec amputation
- denied and has made her comfrot care
History of Enterococcus UTI
History of ventricular fibrillation/torsades status post ICD
Coronary artery disease
-Continue aspirin, statin
Chronic HFpEF, Hypovolemic, does not appear to be on diuretics.
-Outpatient cards follow up
History of upper GI bleeding secondary to erosive esophagitis
-Continue Protonix, sucralfate
Chronic anemia
-Hemoglobin stable
Advanced dementia with behavioral problems
-Continue Depakote, mirtazapine, olanzapine, ativan
History of pressure injuries of heel/buttocks
Hypercholesterolemia
-Continue fenofibrate, statin
Hypothyroidism
I expect she will pass fairly quickly. ICD has been turned off by cardiology
Anticipated Discharge: Within 24 hours
Subjective/Interval History
-
Date of Service: April 25, 2024
Seen and examined
Overnight lost pulses in right lower extremity. Vascular surgery evaluated. Recommended amputation. However refused and now hospice comfort care.
Objective Data
-
Vital Signs:
Vital Signs
Temp Pulse Resp BP Pulse Ox
97.8 F 128 28 84/66 97
04/25/24 07:53 04/25/24 11:10 04/25/24 11:10 04/25/24 11:10 04/25/24 02:00
I&O
04/24/24 04/25/24 04/26/24
06:59 06:59 06:59
Intake Total 1576 / 1728 2331 / 2331
Output Total 400 / 400
Balance 1576 / 1728 1930 / 1930
--- NOTE | 2024-04-25 13:45 | CM ---
CM following re: discharge planning.
Reviewed pt's chart, met with pt and pt's at bedside.
Per Rounds meeting, pt is on comfort measure. police liaison officer following.
Pt is a intermediate card tender care resident at [facility], requires total care, on Medicaid 15 day bed hold.
D/C plan: comfort care.
CM is available for emotional support.
--- NOTE | 2024-04-25 15:08 | W.CS.POD ---
Consult Summary - Podiatry
-
This patient is a 79 yo female, with history of DM, prior CVA, Afib and Dimentia admitted from [facility] on 04/23/24 for Tachycardia and being treated for severe sepsis. Podiatry has been consulted for the evaluation of a chronic left foot
wound. Apparently the patient suffered a sudden overnight loss of pedal pulses in the right foot, and following vascular evaluation, rather than consider amputation, the patient's agreed to place the patient on hospice comfort care.
Afebrile, VSS.
Seen at bedside, with present. Patient Currently sleeping.
Right foot, cold to touch, non-palpable pedal pulses
Left foot, DP pulse palpable, PT pulse non-palpable.
Decreased temp and turgor. Absent digital hair growth.
No edema, erythema, cellulitis or acute process noted. No malodor.
Full skin thickness ulceration of the left medial first metatarsal head area, 1.5cm in diameter round with fibrotic tissue base. This does not probe directly to bone. Essentially dry and stable.Minimal serous discharge in dressing.
No heel decubitus lesions noted. Minor eschars on the dorsal surface of the lessor toes, right.
Multiple digital contractures, bilaterally.
Assessment:
Chronic, ischemic ulceration of the right forefoot without acute infectious process present.
Severe sepsis
DM
Prior CVA
Afib
CAD
Plan:
Patient on hospice comfort care.
Right foot wound-local care only.
Podiatry service signing off.
Call as necessary.
--- NOTE | 2024-04-25 17:07 | TRANSFER ---
Addendum entered by Chaya Melendez RN 04/25/24 17:10:
updated.
Original Note:
Report called to 2N RN. Patient transported in bed to room 3629.
--- NOTE | 2024-04-25 17:36 | PTCARENOTE ---
pt transfer from ICU. Assessment complete. Patient comfortable in bed and resting.
[2024-04-26] MEDS: MORPHINE SULFATE 2 MG IV ×9 (00:58→21:50)
[2024-04-26] MEDS: NSS (PRESERVATIVE FREE) 0.25 ML IV ×3 (02:55→16:45)
[2024-04-26] MEDS: ATIVAN 0.5 MG IV ×3 (02:55→16:45)
[2024-04-26 07:35] VITALS: BP 117/89
--- NOTE | 2024-04-26 10:04 | CM ---
Addendum entered by Angelic Ortiz RN 04/26/24 14:12:
CM consult received for hospice. [facility] referral forwarded.
Original Note:
Reviewed the chart notes. CM continues to be available to patient/family.
Plan: Comfort care.
--- NOTE | 2024-04-26 12:15 | W.PN.HOSP.TC ---
Addendum entered and electronically signed by Holger Mera MD 04/26/24 17:58:
multifactorial in the setting of metabolic/toxic and septic encephalopathy
severe protein calorie malnuturtuoin
Original Note:
Today's Communication/Plan
-
.
Assessment / Plan
Assessment / Plan
Moans to sternal rub does not open eyes does not follow commands
Scleral anicteric
Moist mucous membranes
No JVD
Distant lung sounds
S1/S2, tachycardic
Soft nontender nondistended bowel sounds active
No peripheral pitting edema
RLE cold
Severe sepsis, follow-up blood culture with IV fluids IV antibiotics n.p.o.
-UCx growing enterococcus.
DKA continue insulin drip per DKA protocol IV fluids with half NS, once sugars consistently less than 200 then begin D5 half NS, keep K greater than 4 while on insulin drip if needed provide IV fluids with potassium and give additional, Q4 BMP, q1h
accuccehc
-Once Gap closes transition/Bridge to subQ and provide diet if awake enpught to tolerate otherwse continue for now
#Atrial fibrillation with RVR secondary to fever/sepsis
-Continue oral diltiazem
-Avoid further rate control until adequately fluid resuscitated
ALI of RLE
-Evaled by vascular surgery, rec amputation
- denied and has made her comfrot care
History of Enterococcus UTI
History of ventricular fibrillation/torsades status post ICD
Coronary artery disease
-Continue aspirin, statin
Chronic HFpEF, Hypovolemic, does not appear to be on diuretics.
-Outpatient cards follow up
History of upper GI bleeding secondary to erosive esophagitis
-Continue Protonix, sucralfate
Chronic anemia
-Hemoglobin stable
Advanced dementia with behavioral problems
-Continue Depakote, mirtazapine, olanzapine, ativan
History of pressure injuries of heel/buttocks
Hypercholesterolemia
-Continue fenofibrate, statin
Hypothyroidism
I expect she will pass fairly quickly. ICD has been turned off by cardiology
CM consult for inpatient hospice
Continue comfort care
Provide dignity and hgiene
Anticipated Discharge: > 48 hours
Subjective/Interval History
-
Date of Service: April 26, 2024
seen and examined. no overnight events
Objective Data
-
Vital Signs:
Vital Signs
Temp Pulse Resp BP Pulse Ox
98.7 F 161 24 117/89 96
04/26/24 07:35 04/26/24 07:35 04/26/24 07:35 04/26/24 07:35 04/26/24 07:35
I&O
04/25/24 04/26/24 04/27/24
06:59 06:59 06:59
Intake Total 2331 / 2331
Output Total 400 / 400
Balance 1930 / 1930
[2024-04-26] MEDS: TYLENOL/FEVERALL 650 MG RECTAL (17:37)
[2024-04-26 19:14] VITALS: BP 104/70
[2024-04-27] MEDS: MORPHINE SULFATE 2 MG IV (00:29)
--- NOTE | 2024-04-27 03:40 | PTCARENOTE ---
During routine checks, patient found with no spontaneous respirations or heart sounds; Devan CHAPIN notified.
--- NOTE | 2024-04-27 04:03 | W.PN.DEATH ---
Pronouncement of
-
Called to see patient to pronounce.
No spontaneous heart tones or respirations noted.
Patient not responsive to verbal stimuli.
Patient is pronounced .
Time of : 03:54
Date of : 04/27/24
Cause of : sepsis due to urinary tract infection
Family Notified: Yes ( Dexter Duarte notified over the phone.)
== END 2024-04-27 03:54 | disposition expired | DRG 871 ==
LOC: 2 NORTH 16:46
PROVIDERS: Emergency Medicine; Radiology Diagnostic Radiology; ADMITTING PHYSICIAN Hospitalist; ATTENDING PHYSICIAN Hospitalist; CONSULT PHYSICIAN Internal Medicine Critical Care Medicine; CONSULT PHYSICIAN Podiatrist Foot & Ankle Surgery; EMERGENCY PHYSICIAN Emergency Medicine; FAMILY PHYSICIAN Internal Medicine
PROC: 0DH67UZ Insertion of Feeding Device into Stomach, Via Natural or Artificial Opening (ICD-10-PCS; 2024-04-24)
DX: A41.81 Sepsis due to Enterococcus (principal); E11.10 Type 2 diabetes mellitus with ketoacidosis without coma; R65.21 Severe sepsis with septic shock; G93.41 Metabolic encephalopathy; G92.8 Other toxic encephalopathy; E43 Unspecified severe protein-calorie malnutrition; I50.32 Chronic diastolic (congestive) heart failure; L97.329 Non-pressure chronic ulcer of left ankle with unspecified severity; I42.9 Cardiomyopathy, unspecified; N39.0 Urinary tract infection, site not specified; E87.0 Hyperosmolality and hypernatremia; R64 Cachexia; Z68.1 Body mass index [BMI] 19.9 or less, adult; F02.C18 Dementia in other diseases classified elsewhere, severe, with other behavioral disturbance; Z51.5 Encounter for palliative care; I48.0 Paroxysmal atrial fibrillation; G20.A1 Parkinson's disease without dyskinesia, without mention of fluctuations; E03.9 Hypothyroidism, unspecified; E78.00 Pure hypercholesterolemia, unspecified; I11.0 Hypertensive heart disease with heart failure; I25.10 Atherosclerotic heart disease of native coronary artery without angina pectoris; D64.9 Anemia, unspecified; K21.00 Gastro-esophageal reflux disease with esophagitis, without bleeding; F32.A Depression, unspecified; R62.7 Adult failure to thrive; E87.5 Hyperkalemia; E83.52 Hypercalcemia; K21.9 Gastro-esophageal reflux disease without esophagitis; E11.622 Type 2 diabetes mellitus with other skin ulcer; L08.9 Local infection of the skin and subcutaneous tissue, unspecified; E11.628 Type 2 diabetes mellitus with other skin complications; Z66 Do not resuscitate; Z95.810 Presence of automatic (implantable) cardiac defibrillator; Z86.73 Personal history of transient ischemic attack (TIA), and cerebral infarction without residual deficits; Z88.0 Allergy status to penicillin; Z87.11 Personal history of peptic ulcer disease
CPT/HCPCS: 51701; 71045; 74018; 75635; 80048; 80053; 80202; 81003; 81015; 82805; 82962; 83605; 83735; 84100; 85025; 85610; 85730; 87040; 87070; 87077; 87086; 87147; 87186; 93005; 96360; 99291; Q9967